=== PATIENT | female | born 1975 | race Hispanic/Latino ===

== ENCOUNTER 2019-04-15 11:26 | Observation (INO) | payer MEDICAID, SELFPAY ==
--- OUTSIDE RECORDS SUMMARY | 2019-04-15 11:28 | XMS REPORT ---
:1975 Author Organization [employer] Care Team Providers Name Role Phone Alex Cunningham Provider Role Unavailable Allergies, Adverse Reactions, Alerts Substance Reaction Event Type Toradol rash/swelling Drug Allergy Tramadol HCl rash/swelling Drug Allergy Cipro rash/swelling Drug Allergy Bactrim rash/swelling Drug Allergy Problems Problem Type Condition Code Onset Dates Condition Status Assessment Family history of diabetes mellitus Z83.3 Active Assessment Irritable bowel syndrome, K58.9 Active unspecified type Assessment Essential (primary) hypertension I10 Active Assessment Fibromyalgia M79.7 Active Assessment assisted prescription Z79.899 Active benzodiazepine use Problem Essential (primary) hypertension I10 Active Problem Depression with anxiety F41.8 Active Problem Fibromyalgia M79.7 Active Assessment Depression with anxiety F41.8 Active Problem Cocaine abuse F14.10 Active Problem Irritable bowel syndrome, K58.9 Active unspecified type Medications Medication Code Code Instructions Start End Status Dosage System Date Date Acetaminophen-C [facility] 34532585149 300-30 MG Oral Active (Schedule odeine #3 III Drug) Gabapentin [facility] 38643771887 800 MG Oral tid Active as directed Alprazolam ND [id number] 2 MG Oral Twice Active (Schedule a day IV Drug) Hyoscyamine [facility] [id number] 0.125 MG Active not defined Sulfate Sublingual Duloxetine HCl [facility] 33209054691 30 MG Oral Active not defined Results No Known Results Summary Purpose [employer] Submission
--- OUTSIDE RECORDS SUMMARY | 2019-04-15 11:30 | XMS REPORT | Summary of Care ---
:1975 Author Organization [facility] Address [address] [place] [address] Care Team Providers Name Role Phone Jed Bradley Primary Care Provider Reason for Referral (Routine) Status Reason Specialty Diagnoses / Referred By Referred To Procedures Contact Contact New Request Diagnoses Numbness and tingling of left upper extremity Vasospasm of cerebral artery Becky Bonner MD Lillian, Erin Procedures Discharge Follow-up: PCP JED BRADLEY; 3-5 Days [id number] [place] [address] [place], [place] Phone: [phone] Phone: Radiology Services (Routine) Status Reason Specialty Diagnoses / Referred By Referred To Procedures Contact Contact New Request Diagnostic Diagnoses Numbness and tingling of left upper extremity Sun, Rolandoing, Radiology Procedures IR ANGIOGRAM CEREBRAL PARVEEN ARTERIAL [address] [place] [address] MRI/CAT Scan (STAT) Status Reason Specialty Diagnoses / Referred By Referred To Procedures Contact Contact New Request Diagnostic Diagnoses Numbness and tingling of left lower extremity Ramos Mathews Radiology Procedures MR BRAIN WO CONTRAST S, DO [address] [place] [address] MRI/CAT Scan (STAT) Status Reason Specialty Diagnoses / Referred By Referred To Procedures Contact Contact New Request Diagnostic Diagnoses Numbness and tingling of left lower extremity Ramos Mathews Radiology Procedures MR BRAIN WO CONTRAST S, DO [address] [place] [address] MRI/CAT Scan (Routine) Status Reason Specialty Diagnoses / Referred By Referred To Procedures Contact Contact New Request Diagnostic Diagnoses Stroke-like symptoms Feng Solorzano, Radiology Procedures CT ANGIOGRAM HEAD DO [address] [place] [address]. RT [address] [place] [address] MRI/CAT Scan (STAT) Status Reason Specialty Diagnoses / Referred By Referred To Procedures Contact Contact New Request Diagnostic Diagnoses Stroke-like symptoms Feng Solorzano, Radiology Procedures CT ANGIOGRAM NECK DO [address] [place] [address]. RT [address] [place] [address] MRI/CAT Scan (STAT) Status Reason Specialty Diagnoses / Referred By Referred To Procedures Contact Contact New Request Diagnostic Diagnoses Stroke-like symptoms Feng Solorzano, Radiology Procedures CT HEAD WO CONTRAST DO [address] [place] [address]. RT [address] [place] [address] MRI/CAT Scan (Routine) Status Reason Specialty Diagnoses / Referred By Referred To Procedures Contact Contact New Request Diagnostic Diagnoses Stroke-like symptoms Feng Solorzano, Radiology Procedures CT ANGIOGRAM HEAD DO [address] [place] [address]. RT [address] [place] [address] MRI/CAT Scan (STAT) Status Reason Specialty Diagnoses / Referred By Referred To Procedures Contact Contact New Request Diagnostic Diagnoses Stroke-like symptoms Feng Solorzano, Radiology Procedures CT ANGIOGRAM NECK DO [address] [place] [address]. RT [address] [place] [address] MRI/CAT Scan (STAT) Status Reason Specialty Diagnoses / Referred By Referred To Procedures Contact Contact New Request Diagnostic Diagnoses Stroke-like symptoms Feng Solorzano, Radiology Procedures CT HEAD WO CONTRAST DO [address] [place] [address]. RT [address] [place] [address] Reason for Visit Reason Comments STROKE Auth/Cert Status Reason Specialty Diagnoses / Referred By Referred To Procedures Contact Contact [facility] [address] [place] [address] [place] [address] Encounter Details Date Type Department Care Team Description 09/06/2018 - Hospital Encounter Neurology/Neurologic Feng Solorzano, DO [address] [place] [address]. RT [address] [place], [place] [address]165 Stroke 09/08/2018 al Surgery (LUDWIG 11B) Ramos Mathews, [address] [address] [address] [place] [address] Allergies Active Allergy Reactions Severity Noted Date Comments Ciprofloxacin Anaphylaxis 12/09/2015 Sulfa (Sulfonamide Antibiotics) Anaphylaxis 12/09/2015 Ketorolac Tromethamine Anaphylaxis 11/21/2017 Tramadol Anaphylaxis 12/09/2015 documented as of this encounter (statuses as of 09/08/2018) Medications Medication Sig Dispensed Refills Start Date End Date Status simethicone 80 mg Take 1 tablet 120 tablet 0 05/28/2018 Active chewable by mouth after tabletIndications: meals and at Constipation, bedtime. unspecified constipation type hyoscyamine sulfate Place 1 tablet 90 tablet 0 05/28/2018 Active 0.125 mg sublingual under the tabletIndications: tongue before Sphincter of Oddi meals. dysfunction docusate 100 mg Take 1 capsule 0 05/29/2018 Active capsule by mouth daily. Polyethylene Glycol Take 1 Packet 0 05/28/2018 Active 3350 17 gram powder by mouth 2 (two) times daily. sennosides 8.6 mg Take 1 tablet 0 05/29/2018 Active tablet by mouth daily. pantoprazole 40 mg Take 1 tablet 60 tablet 2 05/28/2018 Active EC by mouth 2 tabletIndications: (two) times Abdominal pain, daily. unspecified abdominal location ondansetron Take 1 tablet 24 tablet 0 05/28/2018 Active (ZOFRAN) 8 mg by mouth every tabletIndications: 8 (eight) hours Abdominal pain, as needed for unspecified Nausea and abdominal location Vomiting (N/V). ranitidine (ZANTAC) Take 1 tablet 30 tablet 1 07/12/2018 Active 150 mg by mouth 2 tabletIndications: (two) times Generalized daily. Follow abdominal pain up with your MD for further evaluation and treatment. ondansetron (ZOFRAN Take 1 tablet 6 tablet 0 07/12/2018 Active ODT) 4 mg by mouth every disintegrating 8 (eight) hours tabletIndications: as needed for Generalized Nausea and abdominal pain Vomiting (N/V). acetaminophen 160 Take 20.25 mL 120 mL 0 07/12/2018 Active mg/5 mL by mouth every liquidIndications: 4 (four) hours Generalized as needed for abdominal pain Pain (scale 4-6). clonazePAM 1 mg Take 1 mg by 0 Active tablet mouth 2 (two) times daily. metFORMIN 500 mg Take 500 mg by 0 Active tablet mouth 2 (two) times daily with meals. linaCLOtide Take by mouth. 0 Active (LINZESS) 145 mcg capsule acetaminophen-codei Take 1 tablet 12 tablet 0 08/04/2018 Active ne (TYLENOL-CODEINE by mouth every #3) 300-30 mg 4 (four) hours tabletIndications: as needed for Chronic Pain (scale pancreatitis, 7-10). unspecified pancreatitis type, Bilateral flank pain, Mild dehydration, Elevated liver function tests dicyclomine Take 1 capsule 30 capsule 0 08/20/2018 Active (BENTYL) 10 mg by mouth every capsuleIndications: 6 (six) hours Generalized as needed for abdominal pain Abdominal pain. pregabalin (LYRICA) Take 100 mg by 0 Active 100 mg capsule mouth 2 (two) times daily. tamsulosin 0.4 mg Take 0.4 mg by 0 Active 24 hr capsule mouth daily. aspirin 81 mg Take 1 tablet 30 tablet 6 09/09/2018 Active chewable by mouth daily. tabletIndications: Numbness and tingling of left upper extremity, Vasospasm of cerebral artery atorvastatin 20 mg Take 1 tablet 30 tablet 6 09/08/2018 Active tabletIndications: by mouth at Numbness and bedtime. tingling of left upper extremity, Vasospasm of cerebral artery gabapentin 600 mg Take 300 mg by 0 Discontinued tablet mouth 3 (three) 9 times daily. lisinopril 10 mg Take 10 mg by 0 Discontinued tablet mouth 2 (two) 9 times daily. 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 Constipation 05/28/2018 Transaminitis 05/28/2018 Abdominal pain 05/25/2018 Intractable abdominal pain 05/24/2018 Acute pancreatitis 05/21/2018 Hypertensive disorder 05/03/2018 Cocaine abuse 05/03/2018 Alcoholism 05/03/2018 Migraine 05/03/2018 Kidney stone 05/03/2018 Acute pyelonephritis 05/29/2017 Fibromyalgia 06/02/2016 Nephrolithiasis 06/02/2016 Depression Chronic migraine Chronic back pain Anxiety documented as of this encounter (statuses as of 09/08/2018) Social History Tobacco Use Types Packs/Day Years Used Date Current Every Day Smoker 5 Smokeless Tobacco: Never Used Tobacco Cessation: Ready to Quit: No; Counseling Given: Yes Comments: only smoked social Alcohol Use Drinks/Week oz/Week Comments No Sex Assigned at Date Recorded Not on file Job Start Date Occupation Industry Not on file Not on file Not on file Travel History Travel Start Travel End No recent travel history available. documented as of this encounter Last Filed Vital Signs Vital Sign Reading Time Taken Comments Blood Pressure 98/57 09/08/2018 8:00 AM CDT Pulse 78 09/08/2018 8:00 AM CDT Temperature 36.6 C (97.8 F) 09/08/2018 8:00 AM CDT Respiratory Rate 16 09/08/2018 8:00 AM CDT Oxygen Saturation 98% 09/08/2018 8:00 AM CDT Inhaled Oxygen Concentration - - Weight 73.7 kg (162 lb 7.7 oz) 09/07/2018 9:18 AM CDT Height 154.9 cm (5' 0.98") 09/07/2018 9:18 AM CDT Body Mass Index 30.72 09/07/2018 9:18 AM CDT documented in this encounter Discharge Instructions AttachmentsThe following attachments cannot be sent through Care Everywhere.Aspirin, ASA chewable tablets (Kyrgyz)Atorvastatin tablets (Kyrgyz) documented in this encounter Progress Notes Flavio Rosen MD - 09/07/2018 6:54 PM CDTNeurosurgery Update Note 09/07/18 NeuroIR angiogram reviewed, and there was no evidence of right MCA cerebral aneurysm. LP results negative for xanthochromia. -No plans for neurosurgical intervention -Rest of care per primary team Flavio Rosen MD Neurosurgery, PGY-2 For inquiries please page [phone] olf, CONSTANTINE Rizo - 09/07/2018 12:54 PM CDTCare Management Social Functional Assessment Patient Name: Charmaine Sanches Age: [age] year old Sex: female Patient's Previous Admission Date at [facility]: 05/25/2018 Current diagnosis and co-morbidities: STROKE VS Social Functional Assessment: Primary language spoken/preferred: Kyrgyz Mental Status: Alert & Oriented to Person,Place & Time Information given by: Self Patient's support system: Spouse Name and number of support system: Jorge Murdock [phone] Primary Personal Care Attendant: Self MPOA: No Living Arrangement: Home Address of living arrangement : [address] [place] [id number] Persons living in home: Self;Spouse;Child Barriers to returning home: None Baseline functional status- ambulation: Independent Functional status-baseline personal care: Independent Baseline functional status- driving: Dependent Baseline functional status- grocery shopping: Requires minimal to moderate assistance Functional status-baseline housekeeping: Requires minimal to moderate assistance Functional status-baseline meal prep: Requires minimal to moderate assistance Current functional status same as prior: No Current functional status- ambulation: Requires minimal to moderate assistance Current functional status- personal care: Independent Current functional status- driving: Dependent Current functional status- grocery shopping: Dependent Current functional status-house keeping: Dependent Current functional status- meal preparation: Dependent Do you have a PCP?: Yes Name of PCP: Dr [facility] Agency: No Provider Services: No DME Company: No Equipment: None Hemodialysis: No Community resources utilized: None Funding Resources: Medicaid HMO Prescription coverage plan: Medicaid unlimited slots Pharmacy where meds are filled: Other Other pharmacy: [facility] [place] Anticipated services prior to disharge: Consult;Continue Medical Eval;Orthotic Equipment-Foster J;MRI/CT/US;Reassess prior to discharge;PT/OT/ST Expected mode of discharge transportation: Same as support system Additional info required for discharge planning: Pending P/T O/T recommendation Recommended discharge plan: Home;DME Referral SFA Complete: Social Functional Assessment complete: Yes Alcohol Use Screening (AUDIT-C) How often do you have a drink containing alcohol?: Never SCORE: 0 Role of Care Management explained. Pt states she will have support of dtr upon home d/c and family. RACHEL Perez Litigation Services Manager/Care Management Office [phone] Dalton Ceron MD - 09/07/2018 10:18 AM CDT [facility] PROGRESS NOTE DATE OF SERVICE: 09/07/2018 10:19 Day of Hospitalization: 1 CHIEF COMPLAINT: Left sided numbness, weakness, blurry vision and slurred speech. Code status: not addressed: presumptive full. 24-HOUR EVENTS: Admitted to [facility], CTA done. BP 90s/60s overnight, holding BP meds. LP CSF fluid analysis - unremarkable (negative for xanthochromia or infection ) SUBJECTIVE: Says that she still feels weak on her left arm and has numbness on the left side of her face. STROKE DOCUMENTATION NIH STROKE SCALE NIH STROKE SCALE LOC: 0 Alert: Keenly Responsive LOC QUESTIONS: 0 Answers Both Questions Correctly LOC COMMANDS: 0 Performs Both Tasks Correctly BEST GAZE: 0 Normal VISUAL: 0 No Visual Loss FACIAL PALSY: 0 Normal MOTOR ARM-LEFT: 1 Drift MOTOR ARM-RIGHT: 0 No Drift MOTOR LEG-LEFT: 1 Drift MOTOR LEG-RIGHT: 0 No Drift LIMB ATAXIA: 0 Absent SENSORY: 1 Bzt-ot-[id number] Sensory Loss BEST LANGUAGE: 0 No Aphasia DYSARTHRIA: 0 Normal EXTINCTION AND INATTENTION (FORMERLY NEGLECT): 0 No Abnormalty STROKE SCALE INTERVAL: Baseline STROKE SCALE TOTAL SCORE: 3 HOSPITAL MEDICATIONS Current Facility-Administered Medications Medication Dose Route Frequency Last Rate Last Dose acetaminophen (TYLENOL) tablet 650 mg 650 mg Oral Q6HPRN NaCl 0.9% (NS) IV infusion 1,000 mL 1,000 mL IV Infusion CONTINUOUS Sliding Scale Insulin - Aspart (NOVOLOG) + Fsbg Testing Subcutaneous TID MEALS+HS Stopped at09/07/18 0748 aspirin chewable tablet 81 mg 81 mg Oral DAILY 81 mg at 09/07/18 0814 atorvastatin (LIPITOR) tablet 20 mg 20 mg Oral QHS sqguthweac-kzbsfanokekzk-pkng (ESGIC) 50-325-40 mg tablet 1 tablet 1 tablet Oral Q6HPRN 1 tablet at 09/06/18 2334 clonazePAM (KLONOPIN) tablet 1 mg 1 mg Oral BID 1 mg at 09/07/18 0814 heparin injection 5,000 Units 5,000 Units Subcutaneous Q12H Stopped at 0816 ondansetron (ZOFRAN-ODT) disintegrating tablet 4 mg 4 mg Oral Q8HPRN pantoprazole (PROTONIX) EC tablet 40 mg 40 mg Oral BID 40 mg at 09/07/18 0814 pregabalin (LYRICA) capsule 100 mg 100 mg Oral BID 100 mg at 09/07/18 0814 PHYSICAL EXAM BP: (93-129)/(56-97) Temp: [36.5 C (97.7 F)-36.7 C (98.1 F)] Temp source: Axillary (09/07 0400) Pulse: [48-66] Resp: [9-19] SpO2: [90 %-100 %] Height: [154.9 cm (5' 0.98")-154.9 cm (5' 1")] Weight: [70.3 kg (155 lb)-73.7 kg (162 lb 7.7 oz)] BMI (calculated): [0-30.72] Vitals: 09/07/18 0700 09/07/18 0800 09/07/18 0900 09/07/18 0918 BP: 96/69 94/60 116/76 116/76 Pulse: 52 51 50 Resp: 14 14 16 Temp: TempSrc: SpO2: 97% 95% 98% Weight: 73.7 kg (162 lb 7.7 oz) Height: 1.549 m (5' 0.98") Intake/Output Summary (Last 24 hours) at 09/07/2018 1019 Last data filed at 09/06/2018 2000 Gross per 24 hour Intake 0 ml Output Net 0 ml Awake Patients General: Alert and oriented x 4 (time, person, place and situation); no apparent distress. Mental Status: Consciousness, attention, concentration: normal, Stays focused and on task while being questioned. Speech/ Language: intact to comprehension, fluency, repetition and naming. Fund of knowledge: is congruent with level of education. Remote and recent memory: normal, can recall recent and distant memories Cranial Nerves: I. Not tested. II. PERRL. FOV full to confrontation. Discs visualized, no papilledema. III. IV., . Extraocular movements intact without nystagmus. V. Normal sensation in V1-3 distributions. VII. No facial droop noted. VIII. Hearing intact. IX., X. Palatal elevation and gag response present symmetrically. XI. Normal Strength of sternocleidomastoid and trapezius muscles bilaterally. XII. Tongue in midline. Motor: Tone: normal Bulk: normal STRENGTH Right Left Deltoid 5- 4 Biceps 5- 4 Triceps 5 - 4 Wrist extensors 5- 4 Interossei 5- 4 Hip flexors 5 5 Knee flexors (hamstring) 5 5 Knee extensors (quadriceps) 5 5 Ankle dorsiflexors 5 5 Ankle plantar flexors 5 5 DTR's: Right Left Bicep 2+ 2+ Triceps 2+ 2+ Brachioradialis 2+ 2+ Patella 2+ 2+ Achilles 2+ 2+ Pathologic reflexes and signs: Frontal releasing signs: absent Hopson: absent Babinski: absent Jaw Jerk: not tested Cerebellar: Nystagmus: neg, FTN: mild dysmetria on her left side, HTS:nl, Tremors: neg Sensory: Numbness on left side of her face and arm. Proprioception intact. Gait: deferred HEENT: pupils equal, round, reactive to light; extraocular movements intact; oropharynx clear; moistmucous membranes Lungs: clear to auscultation bilaterally Cardio: S1, S2 normal Extremities:no cyanosis,clubbing or edema Neck:supple,no carotid bruit,no JVD Abdomen: soft; non-tender; non-distended; normoactive bowel sounds heard LABS Recent Results (from the past 24 hour(s)) COMP. METABOLIC PANEL ([id number]) Collection Time: 09/06/18 4:38 PM Result Value Ref Range NA 145 135 - 145 mmol/L K 3.9 3.5 - 5.0 mmol/L CL 110 (H) 98 - 108 mmol/L CO2 TOTAL 27 23 - 31 mmol/L AGAP 8 2 - 16 BUN 10 7 - 23 mg/dL GLUCOSE 92 70 - 110 mg/dL CREATININE 0.69 0.50 - 1.04 mg/dL TOTAL BILI 0.6 0.1 - 1.1 mg/dL CALCIUM 9.0 8.6 - 10.6 mg/dL T PROTEIN 7.5 6.3 - 8.2 g/dL ALBUMIN 4.2 3.5 - 5.0 g/dL ALK PHOS 139 (H) 34 - 122 U/L ALT(SGPT) 30 9 - 51 U/L AST(SGOT) 24 13 - 40 U/L eGFR Calculation (Non-) 92.4 mL/min/1.73m2 eGFR Calculation () 112.0 mL/min/1.73m2 TROPONIN I Collection Time: 09/06/18 4:38 PM Result Value Ref Range TROPONIN I 0.002 <=0.034 ng/mL LIPID PANEL ([id number])(TOTAL CHOLESTEROL, TRIGLYCERIDES, HDL) Collection Time: 09/06/18 4:38 PM Result Value Ref Range CHOL 153 120 - 200 mg/dL HDL 32 (L) >50 mg/dL HDLC RATIO 4.8 (H) <=4.5 TRIG 223 (H) 30 - 170 mg/dL LDL CHOL 76 <=160 mg/dL VLDL 45 5 - 60 mg/dL GLYCOSYLATED HEMOGLOBIN (A1C) Collection Time: 09/06/18 4:38 PM Result Value Ref Range HGB A1C 5.5 4.0 - 6.0 % NGSP CBC WITH DIFFERENTIAL Collection Time: 09/06/18 4:38 PM Result Value Ref Range WBC 9.94 4.30 - 11.10 10*3/L RBC 3.89 (L) 3.93 - 5.25 10*6/L HGB 11.4 (L) 11.6 - 15.0 g/dL HCT 35.1 (L) 35.7 - 45.2 % MCV 90.2 80.6 - 95.5 fL MCH 29.3 25.9 - 32.8 pg MCHC 32.5 31.6 - 35.1 g/dL RDW-SD 42.7 39.0 - 49.9 fL RDW-CV 13.0 12.0 - 15.5 % PLT 270 166 - 358 10*3/L MPV 11.1 9.5 - 12.9 fL NRBC/100 WBC 0.0 0.0 - 10.0 /100 WBCs NRBC x10^3 <0.01 10*3/L GRAN MAT (NEUT) % 64.8 % IMM GRAN % 0.30 % LYMPH % 24.3 % MONO % 6.8 % EOS % 3.3 % BASO % 0.5 % GRAN MAT x10^3(ANC) 6.43 1.88 - 7.09 10*3/uL IMM GRAN x10^3 0.03 0.00 - 0.06 10*3/uL LYMPH x10^3 2.42 1.32 - 3.29 10*3/uL MONO x10^3 0.68 0.33 - 0.92 10*3/uL EOS x10^3 0.33 0.03 - 0.39 10*3/uL BASO x10^3 0.05 0.01 - 0.07 10*3/uL ADC / LCC - DRUG SCREEN TRIAGE Collection Time: 09/06/18 4:47 PM Result Value Ref Range BENZO U Negative Negative SRUTHI U Negative Negative AMPHET Negative Negative THC Negative Negative METHADONE Negative Negative Meth U Negative Negative OPIATES Negative Negative Cocaine Metabolite Presumptive Positive (A) Negative PROPOXY Negative Negative Tric U Negative Negative PCP Negative Negative OXYCOD Negative Negative URINALYSIS Collection Time: 09/06/18 4:48 PM Result Value Ref Range APPEARANCE Clear Clear COLOR Colorless (A) Yellow PH 6.0 4.8 - 8.0 SP GRAVITY <=1.005 1.003 - 1.030 GLU U QUAL Negative Negative BLOOD Trace (A) Negative KETONES Negative Negative PROTEIN Negative Negative UROBILIN 0.2 mg/dL 0-1.0 mg/dL BILIRUBIN Negative Negative NITRITE Negative Negative LEUK PAKO Negative Negative RBC/HPF 1 0 - 3 HPF WBC/HPF 0 0 - 5 HPF BACTERIA Negative Negative SQ EPITH 1 HPF THYROID STIMULATING HORMONE Collection Time: 09/07/18 12:22 AM Result Value Ref Range TSH 4.50 0.45 - 4.70 mIU/L PROTHROMBIN TIME / INR Collection Time: 09/07/18 1:54 AM Result Value Ref Range PROTIME PATIENT 11.2 10.1 - 12.6 Seconds INR 1.0 aPTT Collection Time: 09/07/18 1:54 AM Result Value Ref Range APTT Patient 29 26 - 36 Seconds CEREBROSPINAL FLUID GLUCOSE Collection Time: 09/07/18 3:30 AM Result Value Ref Range GLU CSF 47 (L) 50 - 80 mg/dL UNSPUN BODY FLUID COLOR Colorless UNSPUN BODY FLUID CLARITY Clear SPUN BODY FLUID COLOR Colorless SPUN BODY FLUID CLARITY Clear Sediment CEREBROSPINAL FLUID PROTEIN Collection Time: 09/07/18 3:30 AM Result Value Ref Range T. PRO CSF 39.0 15.0 - 45.0 mg/dL UNSPUN BODY FLUID COLOR Colorless UNSPUN BODY FLUID CLARITY Clear SPUN BODY FLUID COLOR Colorless SPUN BODY FLUID CLARITY Clear Sediment MENINGITIS/ENCEPHALITIS PANEL BY PCR Collection Time: 09/07/18 3:30 AM Result Value Ref Range Escherichia coli K1 Negative Negative, Indeterminate, See Comment Haemophilus influenzae Negative Negative, Indeterminate, See Comment Listeria monocytogenes Negative Negative, Indeterminate, See Comment Neisseria meningitidis (encapsulated) Negative Negative, Indeterminate, See Comment Streptococcus agalactiae Negative Negative, Indeterminate, See Comment Streptococcus pneumoniae Negative Negative, Indeterminate, See Comment Cytomegalovirus Negative Negative, Indeterminate, See Comment Enterovirus Negative Negative, Indeterminate, See Comment Herpes simplex virus 1 Negative Negative, Indeterminate, See Comment Herpes simplex virus 2 Negative Negative, Indeterminate, See Comment Human herpesvirus 6 Negative Negative, Indeterminate, See Comment Human parechovirus Negative Negative, Indeterminate, See Comment Varicella zoster virus Negative Negative, Indeterminate, See Comment Cryptococcus neoformans/gattii Negative Negative, Indeterminate, See Comment BODY FLUID DIRECT COUNT Collection Time: 09/07/18 3:30 AM Result Value Ref Range BF COLOR Clear BF WBC Count 1 0 - 5 /L BF RBC Count 1 /L CSF CULTURE Collection Time: 09/07/18 3:30 AM Result Value Ref Range Gram stain No Organisms seen Gram stain Occasional (Rare) PMNs or Mononuclear cells observed BODY FLUID MANUAL DIFF Collection Time: 09/07/18 3:30 AM Result Value Ref Range BF LYMPHS 26 (L) 28 - 96 % MACROPHAGE 10 (L) 16 - 56 % #CELS CNTD 36 FASTING LIPID PANEL ([id number])(TOTAL CHOLESTEROL, TRIGLYCERIDES, HDL) Collection Time: 09/07/18 3:35 AM Result Value Ref Range CHOL 149 120 - 200 mg/dL HDL 26 (L) >50 mg/dL HDLC RATIO 5.7 (H) <=4.5 TRIG 186 (H) 30 - 170 mg/dL LDL CHOL 86 <=160 mg/dL VLDL 37 5 - 60 mg/dL POCT GLUCOSE (AUTOMATED) Collection Time: 09/07/18 7:39 AM Result Value Ref Range POCT GLU 95 70 - 110 mg/dL RADIOLOGY No final results containing an impression from the past 48 hours were found. ASSESSMENT AND PLAN Charmaine Sanches is a 43 year old female with PMHx of the following stroke risk factors: HTN, DM, cocaine use, who presented with Left sided weakness, numbness and blurry vision, LSN: 09/06 at 1330, NIHSS 3. 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 1. Neuro - Left side facial and arm numbness - Left arm weakness - Slurred speech (resolved) - Blurred vision (resolved) Imaging: EEG: CSF Analysis: Plan: Neurochecks Q1H Telemetry SBP goal: 120-140 Hold Lisinopril for now. Check CBC, BMP, Pt, PTT, cardiac enzymes x 1, EKG Avoid hyperthermia, pain and constipation Aspirin 325 mg now and Aspirin 81 daily from tomorrow Statin 20mg daily if LDL>70, will adjust according to fasting lipid panel Fall precautions Consult PT/OT/ Speech pathology/Primary swallowing screen MRI brain pending IR to do cerebral angiogram today 2. Cardiac - HTN - Cocaine use (positive UDS) Troponin: 0.002 Plan: SBP goal: 120-140 Started on IV fluids, monitor BP TTE pending 3. Pulmonary Reports SOB when doing neurologic exam this morning. Plan: Continue to monitor TTE pending 4. GI No active problems. - NPO until IR angiogram 5. Renal No active problems - Start IV fluids 150cc/hr to prevent contrast induced nephropathy. 6. ID No active problems. Temp (24hrs), Av.6 C (97.9 F), Min:36.5 C (97.7 F), Max:36.7 C ( 98.1 F) 7. Endo DM (controled) - GI Prophylaxis: pantoprazole - DVT Prophylaxis: heparin Discussed with Dr. Mathews, Neurology Faculty HOSPITAL COURSE Patient with relevant history of HTN and cocaine use, transferred yesterday night from [facility] for sudden onset left arm weakness and numbness, headache, blurry vision and slurred speech that started at 1:30 pm, in addition to a possible right MCA aneurysm detected on CTA. Cocaine positive in UDS. On admission, NIHSS 3. No t-pa was given (outside of the window). Headache, dysarthria and blurry vision have resolved but she still complains of numbness and weakness on her left arm. IR was consulted and DSAwas unremarkable (no aneurysm identified). MRI brain unremarkable. No complications post-procedure, vitals stable. Possible ethiology: vasospasm from cocaine use. Stable for TTF, pending PT/OT evaluation. Dalton Rabago M.D Neurology (PGY-2) Doctor's Number: [id number] Pager: [phone] Associated attestation - Ramos Mathews DO - 09/08/2018 10:10 AM CDTI personally examined the patient on 09/07/[address] Rosas's resident note with the following addition(s): - Angio negative for aneurysm. All examinations to date negative for CVA or hemorrhage. - Neuro exam stable; overall clinically stable - Counseled on cocaine cessation and vasospasm risk - Stable for transfer to the floor I actively participated in the decision-making process. Please see the resident 's note for additional details. Kat Marroquin OT - 09/07/2018 9:53 AM CDT09/07/2018 0953 OCCUPATIONAL THERAPY NOTE: Consult received per stroke protocol, however, patient currently away for MRI. Will f/u later, as time permits. PATTI Lima, OTD, C/NDT Pager [phone] Saurav Peña PT - 09/07/2018 9:53 AM CDT09/07/2018 Physical therapy note: Physical Therapy consult received and chart reviewed however patient is currently away for MRI. Will follow up at a later time as schedule permits. Thank you. Saurav Bui PT, DPT Pager Number: [phone] Ramos Quinones DO - 09/06/2018 11:35 PM CDT Neurocritical Care Attending Note I have been directly involved in the care of this patient including decision- making with house staffand nursing teams at the bedside. Charmaine Sanches is critically ill, 43 year old female with a PMH of Past Medical History: Diagnosis Date Anxiety Chronic back pain Chronic migraine Cocaine abuse Depression Elevated liver enzymes Fibromyalgia Kidney stones She was transferred from [facility] with the following HPI (taken by Dr. Contreras): " Charmaine Sanches is a 43 year old left handed female with PMH of HTN, DM, anxiety, fibromyalgia who was transferred to the N[facility] for [place] ED for left sided weakness and numbness and cerebral aneurysm. Patient is at her usual health status until 1:30 pm today she started having sudden onset slurred speech, left sided weakness and numbness. She went to [facility] ED, her slurred speech resolved in 2 hours, but she still has consistent right sided numbness and weakness. Patient also has headache that was started today. She describes her headache as located behind her eyes, the top of her headache, radiating to the back of her head and neck, pressure like pain, associated with blurry vision, about 8-9/10. She had migraine several years ago, but this headache is different from her previous migraine. She denies any fever/chills, worsening nausea (she has chronic nausea), aphasia. Workup in the [facility] ED: WBC 9.94, Hb 11.4, Na 145, K 3.9, Cr 0.69, A1c 5.5, LDL 76, UDS positive for cocaine. CT head unremarkable, CTA head/neck showed 3.5 mm size aneurysm suspected at the bifurcation of right middle cerebral artery." No signs of bleeding on imaging. Active problem list: 1. R MCA aneurysm 2. NAPIER 3. LUE and LLE weakness/ dysarthria 4. HTN Plan: 1) LP to rule out SAH 2) Keep SBP < 140 3) Consult neurosurgery 4) MRI 5) Neurochecks 6) NPO for now until need for possible intervention clarified 7) Medical Reception on cocaine cessation 8) SCDs/ GI prophylaxis. I have spent a total of 36 minutes of critical care time at the bedside. Ramos Mathews Neurocritical Care Unit attending documented in this encounter Plan of Treatment Name Type Priority Associated Diagnoses Date/Time CSF/WELDING INSPECTOR SHUNT CULTURE LAB [facility] 09/07/2018 3:30 AM CDT CSF CULTURE LAB [facility] 09/07/2018 3:30 AM CDT IR ANGIOGRAM CEREBRAL IMAGING Routine Numbness and tingling of 09/07/2018 2:20 PM left upper extremity CDT Name Type Priority Associated Diagnoses Order Schedule POCT CREATININE LAB Routine Numbness and tingling of ONCE for 1 Occurrences left upper extremity starting 09/06/2018 until 09/06/2018 CSF/WELDING INSPECTOR SHUNT CULTURE LAB [facility] ONCE for 1 Occurrences starting 09/07/2018 until 09/07/2018 Health Maintenance Due Date Last Done Comments PNEUMOCOCCAL 0-64 YEARS COMBINED 1980 SERIES (1 of 1 - PPSV23) DTaP,Tdap,and Td Vaccines (1 - Tdap) 1993 PAP SMEAR 05/04/2013 05/04/2010, 10/01/2007, 11/25/2003 MAMMOGRAM 2014 INFLUENZA VACCINE 10/14/2018 documented as of this encounter Implants Implanted Type Area Spanish Speaking Nanny Device Shelf Model / Identifier Expiration Date Serial / Lot [employer] Supervisor Vascular Closure Device Suture Right: Cardinal 08/12/2020 [id number] / Implanted: Qty: 1 on 09/07/2018 by Julius Espinosa MD at [facility] [id number] / [id number] documented as of this encounter Procedures Procedure Name Priority Date/Time Associated Comments Diagnosis POCT GLUCOSE Routine 09/08/2018 8:41 Results for this (AUTOMATED) AM CDT procedure are in the results section. CBC WITH DIFFERENTIAL Routine 09/08/2018 5:06 Results for this AM CDT procedure are in the results section. CBC WITH DIFF Routine 09/08/2018 5:06 Results for this AM CDT procedure are in the results section. BASIC METABOLIC PANEL Routine 09/08/2018 5:06 Results for this (NA, K, CL, CO2, AM CDT procedure are in GLUCOSE, BUN, the results CREATININE, CA) section. POCT GLUCOSE Routine 09/07/2018 8:35 Results for this (AUTOMATED) PM CDT procedure are in the results section. MR BRAIN WO CONTRAST STAT 09/07/2018 10:30 Numbness and Results for this AM CDT tingling of left procedure are in lower extremity the results section. ECHO ROUTINE W/DOPPLER Routine 09/07/2018 8:42 Stroke-like COLOR AM CDT symptoms POCT GLUCOSE Routine 09/07/2018 7:39 Results for this (AUTOMATED) AM CDT procedure are in the results section. MRSA / MSSA SCREEN BY [facility] 09/07/2018 3:35 Results for this PCR, NARES AM CDT procedure are in the results section. LIPID PANEL [facility] 09/07/2018 3:35 Results for this (00851)(TOTAL AM CDT procedure are in CHOLESTEROL, the results TRIGLYCERIDES, HDL) section. MENINGITIS/ENCEPHALITIS [facility] 09/07/2018 3:30 Results for this PANEL BY PCR AM CDT procedure are in the results section. EXTRA TUBE CSF [facility] 09/07/2018 3:30 AM CDT BODY FLUID DIRECT COUNT [facility] 09/07/2018 3:30 Results for this AM CDT procedure are in the results section. BODY FLUID MANUAL DIFF [facility] 09/07/2018 3:30 Results for this AM CDT procedure are in the results section. BODY FLUID CELL COUNT [facility] 09/07/2018 3:30 Results for this AM CDT procedure are in the results section. CEREBROSPINAL FLUID [facility] 09/07/2018 3:30 Results for this GLUCOSE AM CDT procedure are in the results section. CEREBROSPINAL FLUID [facility] 09/07/2018 3:30 Results for this PROTEIN AM CDT procedure are in the results section. ACTIVATED PARTIAL STAT 09/07/2018 1:54 Results for this THRMPLAS DICK AM CDT procedure are in the results section. PROTHROMBIN TIME / INR STAT 09/07/2018 1:54 Results for this AM CDT procedure are in the results section. THYROID STIMULATING [facility] 09/07/2018 12:22 Results for this HORMONE AM CDT procedure are in the results section. URINALYSIS STAT 09/06/2018 4:48 Stroke-like Results for this PM CDT symptoms procedure are in the results section. ADC / LCC - DRUG SCREEN STAT 09/06/2018 4:47 Stroke-like Results for this TRIAGE PM CDT symptoms procedure are in the results section. CT ANGIOGRAM HEAD Routine 09/06/2018 4:38 Stroke-like Results for this PM CDT symptoms procedure are in the results section. CBC WITH DIFFERENTIAL STAT 09/06/2018 4:38 Stroke-like Results for this PM CDT symptoms procedure are in the results section. GLYCOSYLATED HEMOGLOBIN STAT 09/06/2018 4:38 Stroke-like Results for this (A1C) PM CDT symptoms procedure are in the results section. CBC WITH DIFF STAT 09/06/2018 4:38 Stroke-like Results for this PM CDT symptoms procedure are in the results section. LIPID PANEL STAT 09/06/2018 4:38 Stroke-like Results for this (22959)(TOTAL PM CDT symptoms procedure are in CHOLESTEROL, the results TRIGLYCERIDES, HDL) section. COMP. METABOLIC PANEL STAT 09/06/2018 4:38 Stroke-like Results for this (32490) PM CDT symptoms procedure are in the results section. TROPONIN I STAT 09/06/2018 4:38 Stroke-like Results for this PM CDT symptoms procedure are in the results section. CT ANGIOGRAM NECK STAT 09/06/2018 4:37 Stroke-like Results for this PM CDT symptoms procedure are in the results section. CT HEAD WO CONTRAST STAT 09/06/2018 4:28 Stroke-like Results for this PM CDT symptoms procedure are in the results section. CONSENT/REFUSAL FOR Routine 09/06/2018 4:02 DIAGNOSIS AND TREATMENT PM CDT AGREEMENTS Routine 09/06/2018 12:01 AUTHORIZATIONS AND AM CDT IRREVOCABLE ASSIGNMENTS (FORM 2001) documented in this encounter Results POCT GLUCOSE (AUTOMATED) (09/08/2018 8:41 AM CDT) POCT GLU 88 70 - 110 mg/dL [facility] Specimen Blood Performing Organization Address City/State/Zipcode Phone Number [facility] CLIA: [id number], [address] [place] [address] [phone] [facility] CBC WITH DIFFERENTIAL (09/08/2018 5:06 AM CDT) WBC 7.30 4.30 - 11.10 [facility] 10*3/L SERVICES RBC 3.98 3.93 - 5.25 [facility] 10*6/L SERVICES HGB 11.5 (L) 11.6 - 15.0 [facility] g/dL SERVICES HCT 35.0 (L) 35.7 - 45.2 % [facility] SERVICES MCV 87.9 80.6 - 95.5 fL [facility] SERVICES MCH 28.9 25.9 - 32.8 pg [facility] SERVICES MCHC 32.9 31.6 - 35.1 [facility] g/dL SERVICES RDW-SD 41.7 39.0 - 49.9 fL [facility] SERVICES RDW-CV 12.9 12.0 - 15.5 % [facility] SERVICES PLT 252 166 - 358 [facility] 10*3/L SERVICES MPV 10.5 9.5 - 12.9 fL [facility] SERVICES NRBC/100 WBC 0.0 0.0 - 10.0 /100 [facility] WBCs SERVICES NRBC x10^3 <0.01 10*3/L [facility] SERVICES GRAN MAT (NEUT) % 62.3 % [facility] IMM GRAN % 0.40 % [facility] LYMPH % 27.5 % [facility] MONO % 6.2 % [facility] EOS % 3.2 % [facility] BASO % 0.4 % [facility] GRAN MAT x10^3(ANC) 4.55 1.88 - 7.09 [facility] 10*3/uL SERVICES IMM GRAN x10^3 0.03 0.00 - 0.06 [facility] 10*3/uL SERVICES LYMPH x10^3 2.01 1.32 - 3.29 [facility] 10*3/uL SERVICES MONO x10^3 0.45 0.33 - 0.92 [facility] 10*3/uL SERVICES EOS x10^3 0.23 0.03 - 0.39 [facility] 10*3/uL SERVICES BASO x10^3 0.03 0.01 - 0.07 [facility] 10*3/uL SERVICES Specimen Blood - ARM, RIGHT Performing Organization Address City/State/Zipcode Phone Number [facility] CLIA: [id number], [address] [place] [address] [phone] [facility] BASIC METABOLIC PANEL (NA, K, CL, CO2, GLUCOSE, BUN, CREATININE, CA) (2018 5:06 AM CDT) NA 141 135 - 145 [facility] mmol/L SERVICES K 3.8Comment: 3.5 - 5.0 [facility] Slight hemolysis mmol/L SERVICES CL 106 98 - 108 [facility] mmol/L SERVICES CO2 TOTAL 28 23 - 31 [facility] mmol/L SERVICES AGAP 7 2 - 16 [facility] SERVICES BUN 14Comment: Slight 7 - 23 mg/dL [facility] hemolysis SERVICES GLUCOSE 125 (H) 70 - 110 [facility] mg/dL SERVICES CREATININE 0.62 0.50 - 1.04 [facility] mg/dL SERVICES CALCIUM 8.8 8.6 - 10.6 [facility] mg/dL SERVICES eGFR Calculation 104.6 mL/min/1.73m2 [facility] (Non- SERVICES Macedonian) eGFR Calculation 126.7 mL/min/1.73m2 [facility] () SERVICES Specimen Blood - ARM, RIGHT Narrative Performed At Association of Glomerular Filtration Rate (GFR) and Staging [facility] of Kidney Disease* + + + + | GFR (mL/min/1.73 m2)| With Kidney Damage|Without Kidney Damage + + + + |>90|Stage one| Normal + + + + |60-89|Stage two| Decreased GFR + + + + |30-59|Stage three| Stage three + + + + |15-29|Stage four | Stage four + + + + |<15 (or dialysis)|Stage five | Stage five + + + + *Each stage assumes the associated GFR level has been in effect for at least three months.Stages 1 to 5, with or without kidney disease, indicate chronic kidney disease. Notes: Determination of stages one and two (with eGFR >59mL/min/1.73 m2) requires estimation of kidney damage for at least three months as defined by structural or functional abnormalities of the kidney, manifested by either: Pathological abnormalities or Markers of kidney damage (including abnormalities in the composition of the blood or urine or abnormalities in imaging tests). Performing Organization Address City/State/Zipcode Phone Number [facility] CLIA: [id number], [address] [place] [address] [facility] POCT GLUCOSE (AUTOMATED) (09/07/2018 8:35 PM CDT) [facility] Signature POCT GLU 94 70 - 110 mg/dL [facility] Specimen Blood Performing Organization Address City/[facility]/Zipcode Phone Number [facility] CLIA: [id number], [address] [place] [address] [facility] MR BRAIN WO CONTRAST (09/07/2018 10:30 AM CDT) Specimen Impressions Performed At PACS/VR/DOSE Normal MRI of the brain. . I, Kareem Alvarez MD., have reviewed this study and agree with the above report. Narrative Performed At * * * * * * * * ORIGINAL REPORT * * * * * * * * PACS/VR/DOSE MR BRAIN WO CONTRAST COMPARISON: CT head without contrast 04/18/2016, 09/06/2018. CT angiogram head 09/06/2018. HISTORY: Stroke suspected, focal neuro deficit, > 6 hrs TECHNIQUE: Multisequence multiplanar MRI of brain without contrast was performed on a 3T MRI FINDINGS: The ventricles and cerebral sulci are normal in caliber and configuration. No midline shift, hydrocephalus or pathological extra-axial fluid collection is present. The basal cisterns are unremarkable. No restricted diffusion is present to suggest acute infarct. No abnormal parenchymal signal abnormality is present. A small focus of gradient blooming is noted adjacent to the anterior horn of the right lateral ventricle without corresponding attenuation abnormality on the recent CT likely representing nonspecific microhemorrhage or mineralization. The T2 flow voids for the major intracranial vessels are unremarkable. A small retention cyst is noted in the left frontal sinus. No abnormal fluid signal is present in the mastoid air cells or draining visualized paranasal air sinuses. Procedure Note [facility], Radiant Results Inft User - 09/07/2018 12:45 PM CDT * * * * * * * * ORIGINAL REPORT * * * * * * * * MR BRAIN WO CONTRAST COMPARISON: CT head without contrast 04/18/2016, 09/06/2018. CT angiogram head 09/06/2018. HISTORY: Stroke suspected, focal neuro deficit, > 6 hrs TECHNIQUE: Multisequence multiplanar MRI of brain without contrast was performed on a 3T MRI FINDINGS: The ventricles and cerebral sulci are normal in caliber and configuration. No midline shift, hydrocephalus or pathological extra-axial fluid collection is present. The basal cisterns are unremarkable. No restricted diffusion is present to suggest acute infarct. No abnormal parenchymal signal abnormality is present. A small focus of gradient blooming is noted adjacent to the anterior horn of the right lateral ventricle without corresponding attenuation abnormality on the recent CT likely representing nonspecific microhemorrhage or mineralization. The T2 flow voids for the major intracranial vessels are unremarkable. A small retention cyst is noted in the left frontal sinus. No abnormal fluid signal is present in the mastoid air cells or draining visualized paranasal air sinuses. IMPRESSION Normal MRI of the brain. . I, Kareem Alvarez MD., have reviewed this study and agree with the above report. Performing Organization Address City/[facility] Phone Number PACS/VR/DOSE POCT GLUCOSE (AUTOMATED) (09/07/2018 7:39 AM CDT) POCT GLU 95 70 - 110 mg/dL [facility] Specimen Blood Performing Organization Address [facility] [place] Number [facility] CLIA: [id number], [address] [place] [address] [facility] FASTING LIPID PANEL (76777)(TOTAL CHOLESTEROL, TRIGLYCERIDES, HDL) (09/07/2018 3:35 AM CDT) CHOL 149 120 - 200 mg/dL [facility] HDL 26 (L) >50 mg/dL [facility] HDLC RATIO 5.7 (H) <=4.5 [facility] TRIG 186 (H) 30 - 170 mg/dL [facility] LDL CHOL 86 <=160 mg/dL [facility] VLDL 37 5 - 60 mg/dL [facility] Specimen Blood - VENOUS Performing Organization Address [facility] [place] Phone Number [facility] CLIA: [id number], [address] [place] [address] [phone] [facility] MRSA / MSSA Screen by PCR, Nares (09/07/2018 3:35 AM CDT) MRSA Screen by PCR, Negative Negative [facility] Nares SERVICES MSSA Screen by PCR, Positive (A) Negative [facility] Nares SERVICES MRSA/MSSA Positive? Yes (A) No [facility] Specimen Swab - NARES, BOTH SIDES Narrative Performed At A positive test result does not necessarily indicate the [facility] presence of viable organism. Performing Organization Address City/[facility] Phone Number [facility] CLIA: [id number], [address] [place] [address] [phone] [facility] BODY FLUID MANUAL DIFF (09/07/2018 3:30 AM CDT) BF LYMPHS 26 (L) 28 - 96 % [facility] MACROPHAGE 10 (L) 16 - 56 % [facility] #CELS CNTD 36 [facility] Specimen Cerebrospinal Fluid - CEREBRAL SPINAL FLUID Narrative Performed At Less than 100 cells counted due to low WBC; Differential is [facility] not reported in percent.37 cells counted:0 Neutrophils, 27 Lymphocytes, 10 Macrophages Performing Organization Address City/[facility] Phone Number [facility] CLIA: [id number], [address] [place] [address] [phone] [facility] BODY FLUID DIRECT COUNT (09/07/2018 3:30 AM CDT) BF COLOR Clear [facility] BF WBC Count 1 0 - 5 /L [facility] BF RBC Count 1 /L [facility] Specimen Cerebrospinal Fluid - CEREBRAL SPINAL FLUID Performing Organization Address City/[facility] Phone Number [facility] CLIA: [id number], [address] [place] [phone] [facility] MENINGITIS/ENCEPHALITIS PANEL BY PCR (09/07/2018 3:30 AM CDT) Escherichia coli K1 Negative Negative, [facility] Indeterminate, SERVICES See Comment Haemophilus influenzae Negative Negative, [facility] Indeterminate, SERVICES See Comment Listeria monocytogenes Negative Negative, [facility] Indeterminate, SERVICES See Comment Neisseria meningitidis Negative Negative, [facility] (encapsulated) Indeterminate, SERVICES See Comment Streptococcus agalactiae Negative Negative, [facility] Indeterminate, SERVICES See Comment Streptococcus pneumoniae Negative Negative, [facility] Indeterminate, SERVICES See Comment Cytomegalovirus Negative Negative, [facility] Indeterminate, SERVICES See Comment Enterovirus Negative Negative, [facility] Indeterminate, SERVICES See Comment Herpes simplex virus 1 Negative Negative, [facility] Indeterminate, SERVICES See Comment Herpes simplex virus 2 Negative Negative, [facility] Indeterminate, SERVICES See Comment Human herpesvirus 6 Negative Negative, [facility] Indeterminate, SERVICES See Comment Human parechovirus Negative Negative, [facility] Indeterminate, SERVICES See Comment Varicella zoster virus Negative Negative, [facility] Indeterminate, SERVICES See Comment Cryptococcus Negative Negative, [facility] neoformans/gattii Indeterminate, SERVICES See Comment Specimen Cerebrospinal Fluid - LUMBAR PUNCTURE Narrative Performed At Negative: [facility] A negative result does not rule-out infection.This assay does not test for all potential infectious agents. Positive: A positive test result does not necessarily indicate the presence of viable organism. Performing Organization Address [facility] [place] Phone Number [facility] CLIA: [id number], [address] [place] [phone] [facility] EXTRA TUBE CSF (09/07/2018 3:30 AM CDT) Specimen Cerebrospinal Fluid - CORD Performing Organization Address [facility] [place] Phone Number [facility] CLIA: [id number], [address] [place] [phone] [facility] CEREBROSPINAL FLUID PROTEIN (09/07/2018 3:30 AM CDT) Pathologist [facility] T. PRO CSF 39.0 15.0 - 45.0 [facility] mg/dL SERVICES UNSPUN BODY FLUID Colorless [facility] COLOR SERVICES UNSPUN BODY FLUID Clear [facility] CLARITY SERVICES SPUN BODY FLUID Colorless [facility] COLOR SERVICES SPUN BODY FLUID Clear [facility] CLARITY SERVICES Sediment Comment: The [facility] sediment volume SERVICES is <0.01 mLs of the total fluid volume of 5 mLs and its color is red. Specimen Cerebrospinal Fluid - LUMBAR PUNCTURE Performing Organization Address [facility] [place] Phone Number [facility] CLIA: [id number], [address] [place] [phone] [facility] CEREBROSPINAL FLUID GLUCOSE (09/07/2018 3:30 AM CDT) GLU CSF 47 (L) 50 - 80 mg/dL [facility] SERVICES UNSPUN BODY FLUID Colorless [facility] COLOR SERVICES UNSPUN BODY FLUID Clear [facility] CLARITY SERVICES SPUN BODY FLUID Colorless [facility] COLOR SERVICES SPUN BODY FLUID Clear [facility] CLARITY SERVICES Sediment Comment: The [facility] sediment volume SERVICES is <0.01 mLs of the total fluid volume of 5 mLs and its color is red. Specimen Cerebrospinal Fluid - LUMBAR PUNCTURE Performing Organization Address [facility] Phone Number [facility] CLIA: [id number], [address] [place] [phone] [facility] aPTT (09/07/2018 1:54 AM CDT) APTT Patient 29 26 - 36 Seconds [facility] SERVICES Specimen Blood - VENOUS Performing Organization Address City/State/Zipcode Phone Number [facility] CLIA: [id number], [address] [place] [id number] [facility] PROTHROMBIN TIME / INR (09/07/2018 1:54 AM CDT) PROTIME PATIENT 11.2 10.1 - 12.6 [facility] Seconds SERVICES INR 1.0Comment: Normal [facility] INR <1.1; Warfarin SERVICES Therapeutic range 2.0 to 3.0 or 2.5 to 3.5, depending upon the indications. Specimen Blood - VENOUS Performing Organization Address City/[facility] Phone Number [facility] CLIA: [id number], [address] [place] [id number] [facility] THYROID STIMULATING HORMONE (09/07/2018 12:22 AM CDT) Pathologist [facility] TSH 4.50Comment: Biotin 0.45 - 4.70 [facility] has been reported mIU/L SERVICES to cause a negative bias, interpret results relative to patient's use of biotin. Specimen Blood - VENOUS Performing Organization Address City/[facility] Phone Number [facility] CLIA: [id number], [address] [place] [id number] [phone] [facility] URINALYSIS (09/06/2018 4:48 PM CDT) Pathologist [facility] APPEARANCE Clear Clear [facility] COLOR Colorless (A) Yellow [facility] PH 6.0 4.8 - 8.0 [facility] SP GRAVITY <=1.005 1.003 - 1.030 [facility] GLU U QUAL Negative Negative [facility] BLOOD Trace (A) Negative [facility] KETONES Negative Negative [facility] PROTEIN Negative Negative [facility] UROBILIN 0.2 mg/dL 0-1.0 mg/dL [facility] BILIRUBIN Negative Negative [facility] NITRITE Negative Negative [facility] LEUK PAKO Negative Negative [facility] RBC/HPF 1 0 - 3 HPF [facility] WBC/HPF 0 0 - 5 HPF [facility] BACTERIA Negative Negative [facility] SQ EPITH 1 HPF [facility] Specimen Urine - URINE, CLEAN CATCH Performing Organization Address [facility] [place] Number [facility] CLIA: [id number], [address] [place] [id number] ADC / LCC - DRUG SCREEN TRIAGE (09/06/2018 4:47 PM CDT) BENZO U Negative Negative [facility] SRUTHI U Negative Negative [facility] AMPHET Negative Negative [facility] THC Negative Negative [facility] METHADONE Negative Negative [facility] Meth U Negative Negative [facility] OPIATES Negative Negative [facility] Cocaine Metabolite Presumptive Negative [facility] (A) [facility] PROPOXY Negative Negative [facility] Tric U Negative Negative [facility] PCP Negative Negative [facility] OXYCOD Negative Negative [facility] Specimen Urine - URINE, CLEAN CATCH Narrative Performed At Urine Drug Cutoff Ranges [facility] Benzodiazepines: 150 ng/mL Barbiturates: 200 ng/mL Amphetamine: 500 ng/mL Cannabinoids: 50ng/mL Methadone: 200 ng/mL Methamphetamine: 500 ng/mL Opiates: 100 ng/mL or 2000 ng/mL Cocaine: 150 ng/mL Propoxyphene:300 ng/mL Tricyclics:300 ng/mL Oxycodone: 100 ng/mL PCP: 25ng/mL The results are to be used only for medical (i.e., treatment) purposes. Unconfirmed screening results must not be used for non-medical purposes (e.g., employment testing, legal testing). Performing Organization Address [facility] [place] Phone Number [facility] CLIA: [id number], [address] [place] [phone] ANGIOGRAM HEAD (09/06/2018 4:38 PM CDT) Specimen Narrative Performed At HISTORY:Stroke suspected, focal neurological deficits. PACS/VR/DOSE TECHNIQUE: Contrast-enhanced 64-mutidetector CT arteriogram study of intracranial major arteries is completed followed by multiplanar reformations. FINDINGS: Excellent visualization of arterial anatomy of major intracranial arterial circulation demonstrated in the raw images as well as processed angiogram images. Right middle cerebral artery is quite tortuous at the bifurcation with suspicious findings of 3.5 mm size aneurysm. CONCLUSIONS: No acute intracranial finding and CT angiography study. However, there is 3.5 mm size aneurysm suspected at the bifurcation of right middle cerebral artery. Procedure Note [facility], Radiant Results Inft User - 09/06/2018 4:54 PM CDT HISTORY: Stroke suspected, focal neurological deficits. TECHNIQUE: Contrast-enhanced 64-mutidetector CT arteriogram study of intracranial major arteries is completed followed by multiplanar reformations. FINDINGS: Excellent visualization of arterial anatomy of major intracranial arterial circulation demonstrated in the raw images as well as processed angiogram images. Right middle cerebral artery is quite tortuous at the bifurcation with suspicious findings of 3.5 mm size aneurysm. CONCLUSIONS: No acute intracranial finding and CT angiography study. However, there is 3.5 mm size aneurysm suspected at the bifurcation of right middle cerebral artery. Performing Organization Address City/State/Zipcode Phone Number PACS/VR/DOSE CBC WITH DIFFERENTIAL (09/06/2018 4:38 PM CDT) WBC 9.94 4.30 - 11.10 [facility] 10*3/L [facility] RBC 3.89 (L) 3.93 - 5.25 [facility] 10*6/L HOSPITAL LABORATORY HGB 11.4 (L) 11.6 - 15.0 [facility] g/dL [facility] HCT 35.1 (L) 35.7 - 45.2 % [facility] MCV 90.2 80.6 - 95.5 fL [facility] MCH 29.3 25.9 - 32.8 pg [facility] MCHC 32.5 31.6 - 35.1 [facility] g/dL [facility] RDW-SD 42.7 39.0 - 49.9 fL [facility] RDW-CV 13.0 12.0 - 15.5 % [facility] PLT 270 166 - 358 [facility] 10*3/L [facility] MPV 11.1 9.5 - 12.9 fL [facility] NRBC/100 WBC 0.0 0.0 - 10.0 /100 [facility] WBCs [facility] NRBC x10^3 <0.01 10*3/L [facility] GRAN MAT (NEUT) % 64.8 % [facility] IMM GRAN % 0.30 % [facility] LYMPH % 24.3 % [facility] MONO % 6.8 % [facility] EOS % 3.3 % [facility] BASO % 0.5 % [facility] GRAN MAT x10^3(ANC) 6.43 1.88 - 7.09 [facility] 10*3/uL HOSPITAL LABORATORY IMM GRAN x10^3 0.03 0.00 - 0.06 [facility] 10*3/uL [facility]ITAL LAB[facility]ORY LYMPH x10^3 2.42 1.32 - 3.29 [facility] 10*3/uL [facility] LAB[facility] MONO x10^3 0.68 0.33 - 0.92 [facility] 10*3/uL [facility]ITAL LAB[facility]ORY EOS x10^3 0.33 0.03 - 0.39 [facility] 10*3/uL [facility]ITAL LAB[facility]ORY BASO x10^3 0.05 0.01 - 0.07 [facility] 10*3/uL [facility] Specimen Blood - VENOUS Performing Organization Address City/[facility]/Zipcode Phone Number [facility] CLIA: [id number], [address] [place] [address] GLYCOSYLATED HEMOGLOBIN (A1C) (09/06/2018 4:38 PM CDT) HGB A1C 5.5 4.0 - 6.0 % NGSP [facility] Specimen Blood - VENOUS Narrative Performed At %A1C (NGSP) Interpretation (ADA) [facility] 4.8-5.6 Normal or (Non-Diabetic Range) 5.7-6.4 Increased Risk (Pre-Diabetic) >6.5Diabetes Indicated Performing Organization Address City/[facility]/Zipcode Phone Number [facility] CLIA: [id number], [address] [place] [address] LIPID PANEL ([id number])(TOTAL CHOLESTEROL, TRIGLYCERIDES, HDL) (09/06/2018 4:38 PM CDT) CHOL 153 120 - 200 mg/dL [facility] HDL 32 (L) >50 mg/dL [facility] HDLC RATIO 4.8 (H) <=4.5 [facility] TRIG 223 (H) 30 - 170 mg/dL [facility] LDL CHOL 76 <=160 mg/dL [facility] VLDL 45 5 - 60 mg/dL [facility] Specimen Blood - VENOUS Performing Organization Address [facility] Phone Number [facility] CLIA: [id number], [address] [place] [address] TROPONIN I (09/06/2018 4:38 PM CDT) [facility] TROPONIN I 0.002 <=0.034 ng/mL [facility] Specimen Blood - VENOUS Narrative Performed At Equal or Less than 0.034 ng/ml---Normal [facility] Note: Cardiac troponin begins to rise 3-4 hours after the onset of ischemia. Repeat in 4-6 hours if the sample was drawn within 3-4 hours of the onset of the symptom and found normal. Between 0.035 and 0.120 ng/mL--- Borderline. Questionable myocardial injury or necrosis Note: Serial measurement may be necessary to confirm or exclude the diagnosis of myocardial injury or necrosis; Clinical correlation (symptoms, EKGs, imaging studies, and others) required; Repeat in 4-6 hours if clinically indicated. Equal or Higher than 0.121 ng/mL---Abnormal. Myocardial Injury or Necrosis Likely Biotin has been reported to cause a negative bias, interpret results relative to patient's use of biotin. Performing Organization Address [facility] Phone Number [facility] CLIA: [id number], [address] [place] [address] COMP. METABOLIC PANEL ([id number]) (09/06/2018 4:38 PM CDT) NA 145 135 - 145 [facility] mmol/L [facility] K 3.9 3.5 - 5.0 [facility] mmol/L HOSPITAL LABORATORY CL 110 (H) 98 - 108 mmol/L [facility] CO2 TOTAL 27 23 - 31 mmol/L [facility] AGAP 8 2 - 16 [facility] BUN 10 7 - 23 mg/dL [facility] GLUCOSE 92 70 - 110 mg/dL [facility] CREATININE 0.69 0.50 - 1.04 [facility] mg/dL [facility] TOTAL BILI 0.6 0.1 - 1.1 mg/dL [facility] CALCIUM 9.0 8.6 - 10.6 [facility] mg/dL [facility] T PROTEIN 7.5 6.3 - 8.2 g/dL [facility] ALBUMIN 4.2 3.5 - 5.0 g/dL [facility] ALK PHOS 139 (H) 34 - 122 U/L [facility] ALT(SGPT) 30 9 - 51 U/L [facility] AST(SGOT) 24 13 - 40 U/L [facility] eGFR Calculation 92.4 mL/min/1.73m2 [facility] ([facility] LABORATORY [place]) eGFR Calculation 112.0 mL/min/1.73m2 [facility] () [facility] Specimen Blood - VENOUS Narrative Performed At Association of Glomerular Filtration Rate (GFR) [facility] LAB[facility]ORY and Staging of Kidney Disease* + + +- + | GFR (mL/min/1.73 m2)| With Kidney Damage|Without Kidney Damage + + +- + |>90| Stage one| Normal + + +- + |60-89|S tage two| Decreased GFR + + +- + |30-59|S tage three| Stage three + + +- + |15-29|S tage four | Stage four + + +- + |<15 (or dialysis)|Stage five | Stage five + + +- + *Each stage assumes the associated GFR level has been in effect for at least three months.Stages 1 to 5, with or without kidney disease, indicate chronic kidney disease. Notes: Determination of stages one and two (with eGFR >59mL/min/1.73 m2) requires estimation of kidney damage for at least three months as defined by structural or functional abnormalities of the kidney, manifested by either: Pathological abnormalities or Markers of kidney damage (including abnormalities in the composition of the blood or urine or abnormalities in imaging tests). Performing Organization Address City/State/Zipcode Phone Number [facility] CLIA: [id number], [address] [place] [address] [facility] [address] ANGIOGRAM NECK (09/06/2018 4:37 PM CDT) Specimen Narrative Performed At HISTORY: Stroke suspected, focal neurological deficit. PACS/VR/DOSE TECHNIQUE: Contrast-enhanced 64-mutidetector CT angiography of arteries in the neck is completed with intravenous injection of Omnipaque 350 nonionic contrast medium. Subsequently multiple sagittal, coronal and MIP angiographic images are reformatted from the 3-D volume data set. FINDINGS: All 4 vessels in the neck are patent. No abnormalities seen at the origins of great vessels from the aortic arch. Trachea and visualized upper bronchial airways appear normal. No focal lesions are seen in the thyroid gland. RIGHT CAROTID: Slightly tortuous common carotid and internal carotid artery arteries. Otherwise normal. LEFT CAROTID: Normal. VERTEBRALS: Both vertebral arteries are patent with antegrade flow confirmed. Left vertebral artery is arising directly from the aortic arch, a developmental variation. CONCLUSIONS: Essentially normal study. Procedure Note [facility], Radiant Results Inft User - 09/06/2018 4:41 PM CDT HISTORY: Stroke suspected, focal neurological deficit. TECHNIQUE: Contrast-enhanced 64-mutidetector CT angiography of arteries in the neck is completed with intravenous injection of Omnipaque 350 nonionic contrast medium. Subsequently multiple sagittal, coronal and MIP angiographic images are reformatted from the 3-D volume data set. FINDINGS: All 4 vessels in the neck are patent. No abnormalities seen at the origins of great vessels from the aortic arch. Trachea and visualized upper bronchial airways appear normal. No focal lesions are seen in the thyroid gland. RIGHT CAROTID: Slightly tortuous common carotid and internal carotid artery arteries. Otherwise normal. LEFT CAROTID: Normal. VERTEBRALS: Both vertebral arteries are patent with antegrade flow confirmed. Left vertebral artery is arising directly from the aortic arch, a developmental variation. CONCLUSIONS: Essentially normal study. Performing Organization Address City/State/Zipcode Phone Number PACS/VR/DOSE CT HEAD WO CONTRAST (09/06/2018 4:28 PM CDT) Specimen Narrative Performed At HISTORY: Stroke suspected. PACS/VR/DOSE TECHNIQUE: Axial non contrast enhanced study is obtained. Comparison is made with 04/18/2016 study. DOSE: Up-to-date CT equipment and radiation dose reduction techniques were employed. CTDIvol: 38.99 mGy. DLP: 727 mGy-cm. FINDINGS:No acute intracranial hemorrhage, midline shift, pressure effect on the brain. No abnormal fluid collection detected in the extra-axial compartment. Ventricular system and cortical sulci are within normal limits for the patient's age. Bone windows showed no gross pathology in the temporal bone anatomy. 10 mm mucous cyst noted in the left frontal sinus. Remaining paranasal sinuses are clear. CONCLUSION: No acute intracranial findings in non contrast enhanced CT scan of brain. Procedure Note [facility], Radiant Results Inft User - 09/06/2018 4:31 PM CDT HISTORY: Stroke suspected. TECHNIQUE: Axial non contrast enhanced study is obtained. Comparison is made with 04/18/2016 study. DOSE: Up-to-date CT equipment and radiation dose reduction techniques were employed. CTDIvol: 38.99 mGy. DLP: 727 mGy-cm. FINDINGS: No acute intracranial hemorrhage, midline shift, pressure effect on the brain. No abnormal fluid collection detected in the extra-axial compartment. Ventricular system and cortical sulci are within normal limits for the patient's age. Bone windows showed no gross pathology in the temporal bone anatomy. 10 mm mucous cyst noted in the left frontal sinus. Remaining paranasal sinuses are clear. CONCLUSION: No acute intracranial findings in non contrast enhanced CT scan of brain. Performing Organization Address City/State/Zipcode Phone Number PACS/VR/DOSE documented in this encounter Visit Diagnoses Diagnosis Numbness and tingling of left upper extremity - Primary Numbness and tingling of left lower extremity Stroke-like symptoms Other symptoms involving nervous and musculoskeletal systems Generalized abdominal pain Abdominal pain, generalized Abdominal pain, unspecified abdominal location Vasospasm of cerebral artery Unspecified transient cerebral ischemia Stroke Unspecified cerebral artery occlusion with cerebral infarction Obesity (BMI 30-39.9) Obesity, unspecified documented in this encounter Administered Medications Medication Order MAR Action Action Date Dose Rate Site acetaminophen (TYLENOL) tablet Given 09/07/2018 7:53 PM CDT 650 mg 650 mg 650 mg, Oral, Q6HPRN, Starting Mon09/07/18 at 0012, Until Discontinued, Routine, Pain (scale 4-6) acetaminophen-codeine (TYLENOL #3) 300-30 Given 09/08/2018 1:25 AM CDT 1 tablet mg tablet 1 tablet 1 tablet, Oral, Q6HPRN, Starting 09/08/18 at 0102, Until Discontinued, Routine, Pain (scale 4-6), Pain (scale 7-10) aspirin chewable tablet 81 mg Given 09/08/2018 8:39 AM CDT 81 mg 81 mg, Oral, DAILY, First dose on Mon09/07/18 at 0900, Until Discontinued, Routine Given 09/07/2018 8:14 AM CDT 81 mg atorvastatin (LIPITOR) tablet 20 mg Given 09/07/2018 7:53 PM CDT 20 mg 20 mg, Oral, QHS, First dose on Mon09/07/18 at 2100, Until Discontinued, Routine dwqthybrde-ohaqruxuzpmme-zpfw (ESGIC) Given 09/06/2018 11:34 PM CDT 1 tablet 50-325-40 mg tablet 1 tablet 1 tablet, Oral, Q6HPRN, Starting Rocio 09/06/18 at 2319, Until Discontinued, Routine, Pain (scale 4-6) clonazePAM (KLONOPIN) tablet 1 mg Given 09/08/2018 8:39 AM CDT 1 mg 1 mg, Oral, BID, First dose on Mon09/07/18 at 0800, Until Discontinued, Routine Given 09/07/2018 7:53 PM CDT 1 mg Given 09/07/2018 8:14 AM CDT 1 mg heparin injection 5,000 Units Given 09/08/2018 8:39 AM CDT 5,000 Units Abdomen-SC 5,000 Units, Subcutaneous, Q12H, First dose on Mon09/07/18 at 2000, Until Discontinued, Routine Given 09/07/2018 7:54 PM CDT 5,000 Units Abdomen-SC pantoprazole (PROTONIX) EC tablet 40 mg Given 09/08/2018 8:39 AM CDT 40 mg 40 mg, Oral, BID, First dose on Mon09/07/18 at 0800, Until Discontinued, Routine Given 09/07/2018 7:53 PM CDT 40 mg Given 09/07/2018 8:14 AM CDT 40 mg pregabalin (LYRICA) capsule 100 mg Given 09/08/2018 8:39 AM CDT 100 mg 100 mg, Oral, BID, First dose on Mon09/07/18 at 0800, Until Discontinued, Routine, research staff member approving Restricted medication: RAMOS MATHEWS Given 09/07/2018 7:53 PM CDT 100 mg Given 09/07/2018 8:14 AM CDT 100 mg Sliding Scale Insulin - Aspart (NOVOLOG) + Fsbg Testing Subcutaneous, TID MEALS+HS, First dose on Mon09/07/18 at 0800, Until Discontinued, Routine Medication Order MAR Action Action Date Dose Rate Site acetaminophen (TYLENOL) tablet Given 09/06/2018 6:19 PM CDT 650 mg 650 mg 650 mg, Oral, ONCE, 1 dose, [facility] 09/06/18 at 1930, CHELSEY aspirin tablet 325 mg Given 09/06/2018 11:35 PM CDT 325 mg 325 mg, Oral, ONCE, 1 dose, Mon09/07/18 at 0030, CHELSEY contrast previously administered 0 mL Given 09/06/2018 4:30 PM CDT Intravenous, ONCE, 1 dose, [facility] 09/06/18 at 1645, Routine FENTanyl PF (SUBLIMAZE (PF)) injection Given 09/07/2018 1:50 PM CDT 25 mcg Slow IV Push, PRN, Starting Mon09/07/18 at 1300, Until Mon09/07/18 at 1350, Routine Given 09/07/2018 1:13 PM CDT 25 mcg Given 09/07/2018 1:00 PM CDT 25 mcg heparin flush (PF) 2,000 units in 1000 mL Given 09/07/2018 1:00 PM CDT 3, 000 mL NS RTU injection IV Push, PRN, Starting Mon09/07/18 at 1300, Until Mon09/07/18 at 1300, Routine iohexol (OMNIPAQUE 350 BULK-100 mL) Given 09/06/2018 4:30 PM CDT 100 mL injection 100 mL 100 mL, Intravenous, ONCE, 1 dose, [facility] 09/06/18 at 1645, Routine lidocaine (LIDODERM) 5 % (700 mg/patch) Given 09/08/2018 1:35 AM CDT 1 Patch patch 1 Patch 1 Patch, Topical, Administer over 12 Hours, ONCE, 1 dose, [facility] 09/08/18 at 0215, Routine lidocaine 1% (PF) (XYLOCAINE) injection 5 mL Given 09/07/2018 3:12 AM CDT 5 mL 5 mL, Infiltration, ONCE, 1 dose, Mon09/07/18 at 0345, Routine lidocaine 1% (PF) (XYLOCAINE) injection Given 09/07/2018 1:10 PM CDT 10 mL PRN, Starting Mon09/07/18 at 1310, Until Mon09/07/18 at 1310, Routine midazolam (VERSED) injection Given 09/07/2018 1:50 PM CDT 0.5 mg IV Push, PRN, Starting Mon09/07/18 at 1300, Until Mon09/07/18 at 1350, Routine Given 09/07/2018 1:13 PM CDT 0.5 mg Given 09/07/2018 1:00 PM CDT 0.5 mg NaCl 0.9% (NS) bolus infusion 500 New Bag 09/08/2018 10:12 AM CDT 500 mL 999 mL/hr mL at 999 mL/hr, 500 mL, IV Piggyback, ONCE, 1 dose, 09/08/18 at 0715, STAT NaCl 0.9% (NS) IV infusion 1,000 New Bag 09/07/2018 11:39 AM CDT 1,000 mL 150 mL/hr mL at 150 mL/hr, IV Infusion, CONTINUOUS, Starting Mon09/07/18 at 1015, Until Mon09/07/18 at 1504, Routine Saline Bubble Study Given 09/07/2018 9:21 AM CDT 6 mL Injection, TITRATE - FOR PROCEDURE USE, 1 dose, Starting Mon09/07/18 at 0921, Until Mon09/07/18 at 0921, Routine Saline Bubble Study Given 09/07/2018 9:22 AM CDT 6 mL Injection, TITRATE - FOR PROCEDURE USE, 1 dose, Starting Mon09/07/18 at 0922, Until Mon09/07/18 at 0922, Routine sulfur hexafluoride microsphr (LUMASON) Given 09/07/2018 11:00 AM CDT 5 mL injection 5 mL 5 mL, Intravenous, ONCE, 1 dose, Mon09/07/18 at 1230, Routine sulfur hexafluoride microsphr (LUMASON) Given 09/07/2018 9:22 AM CDT 5 mL injection Intravenous, TITRATE - FOR PROCEDURE USE, 1 dose, Starting Mon09/07/18 at 0922, Until Mon09/07/18 at 0922, Routine documented in this encounter Insurance Payer Benefit Plan / Subscriber ID Effective Dates Phone Address Type Group [place] xxxxxxxxx 2018-Present Medicaid HEALTH PLAN - [facility] MANAGED MEDICAID documented as of this encounter
--- OUTSIDE RECORDS SUMMARY | 2019-04-15 11:30 | XMS REPORT | Summary of Care ---
:1975 Author Organization [facility] - Health Address [address] [place] [address] Care Team Providers Name Role Phone Alaina Bradley Primary Care Provider Reason for Visit Reason Comments Transition Of Care Encounter Details Date Type Department Care Team Description 09/10/2018 Transition of Care [facility] [place], Transition Of Care [facility]- RN [address] [address] Allergies Active Allergy Reactions Severity Noted Date Comments Ciprofloxacin Anaphylaxis 12/09/2015 Sulfa (Sulfonamide Antibiotics) Anaphylaxis 12/09/2015 Ketorolac Tromethamine Anaphylaxis 11/21/2017 Tramadol Anaphylaxis 12/09/2015 documented as of this encounter (statuses as of 09/10/2018) Medications Medication Sig Dispensed Refills Start Date End Date Status simethicone 80 mg Take 1 tablet by 120 tablet 0 05/28/2018 Active chewable mouth after meals tabletIndications: and at bedtime. Constipation, unspecified constipation type hyoscyamine sulfate Place 1 tablet 90 tablet 0 05/28/2018 Active 0.125 mg sublingual under the tongue tabletIndications: before meals. Sphincter of Oddi dysfunction docusate 100 mg Take 1 capsule by 0 05/29/2018 Active capsule mouth daily. Polyethylene Glycol Take 1 Packet by 0 05/28/2018 Active 3350 17 gram powder mouth 2 (two) times daily. sennosides 8.6 mg Take 1 tablet by 0 05/29/2018 Active tablet mouth daily. pantoprazole 40 mg EC Take 1 tablet by 60 tablet 2 05/28/2018 Active tabletIndications: mouth 2 (two) Abdominal pain, times daily. unspecified abdominal location ondansetron (ZOFRAN) 8 Take 1 tablet by 24 tablet 0 05/28/2018 Active mg tabletIndications: mouth every 8 Abdominal pain, (eight) hours as unspecified abdominal needed for Nausea location and Vomiting (N/V). ranitidine (ZANTAC) Take 1 tablet by 30 tablet 1 07/12/2018 Active 150 mg mouth 2 (two) tabletIndications: times daily. Generalized abdominal Follow up with pain your MD for further evaluation and treatment. ondansetron (ZOFRAN Take 1 tablet by 6 tablet 0 07/12/2018 Active ODT) 4 mg mouth every 8 disintegrating (eight) hours as tabletIndications: needed for Nausea Generalized abdominal and Vomiting pain (N/V). acetaminophen 160 mg/5 Take 20.25 mL by 120 mL 0 07/12/2018 Active mL liquidIndications: mouth every 4 Generalized abdominal (four) hours as pain needed for Pain (scale 4-6). clonazePAM 1 mg tablet Take 1 mg by 0 Active mouth 2 (two) times daily. metFORMIN 500 mg Take 500 mg by 0 Active tablet mouth 2 (two) times daily with meals. linaCLOtide (LINZESS) Take by mouth. 0 Active 145 mcg capsule acetaminophen-codeine Take 1 tablet by 12 tablet 0 08/04/2018 Active (TYLENOL-CODEINE #3) mouth every 4 300-30 mg (four) hours as tabletIndications: needed for Pain Chronic pancreatitis, (scale 7-10). unspecified pancreatitis type, Bilateral flank pain, Mild dehydration, Elevated liver function tests dicyclomine (BENTYL) Take 1 capsule by 30 capsule 0 08/20/2018 Active 10 mg mouth every 6 capsuleIndications: (six) hours as Generalized abdominal needed for pain Abdominal pain. pregabalin (LYRICA) Take 100 mg by 0 Active 100 mg capsule mouth 2 (two) times daily. tamsulosin 0.4 mg 24 Take 0.4 mg by 0 Active hr capsule mouth daily. aspirin 81 mg chewable Take 1 tablet by 30 tablet 6 09/09/2018 Active tabletIndications: mouth daily. Numbness and tingling of left upper extremity, Vasospasm of cerebral artery atorvastatin 20 mg Take 1 tablet by 30 tablet 6 09/08/2018 Active tabletIndications: mouth at bedtime. Numbness and tingling of left upper extremity, Vasospasm of cerebral artery documented as of this encounter (statuses as of 09/10/2018) Active Problems Problem Noted Date Obesity (BMI [...] as of this encounter (statuses as of 09/10/2018) Social History Tobacco Use Types Packs/Day Years Used Date Current Every Day Smoker 5 Smokeless Tobacco: Never Used Comments: only smoked social Alcohol Use Drinks/Week oz/Week Comments No Sex Assigned at Date Recorded Not on file Job Start Date Occupation Industry Not on file Not on file Not on file Travel History Travel Start Travel End No recent travel history available. documented as of this encounter Last Filed Vital Signs Not on filedocumented in this encounter Plan of Treatment Health Maintenance Due Date Last Done Comments PNEUMOCOCCAL 0-64 YEARS COMBINED 1980 SERIES (1 of 1 - PPSV23) DTaP,Tdap,and Td Vaccines (1 - Tdap) 1993 PAP SMEAR 05/04/2013 05/04/2010, 10/01/2007, 11/25/2003 MAMMOGRAM 2014 INFLUENZA VACCINE 10/14/2018 documented as of this encounter Implants Implanted Type Area Latex Caster Device Shelf Model / Identifier Expiration Date Serial / Lot Mynx Ink Grinder Vascular Closure Device Suture Right: Cardinal 08/12/2020 [id number] / Implanted: Qty: 1 on 09/07/2018 by Julius Espinosa MD at [facility] Groin [id number] / [id number] documented as of this encounter Results Not on filedocumented in this encounter Insurance Payer Benefit Plan / Subscriber ID Effective Dates Phone Address Type Group [facility] xxxxxxxxx 2018-Present Medicaid HEALTH PLAN - HEALTH MANAGED MEDICAID documented as of this encounter
--- OUTSIDE RECORDS SUMMARY | 2019-04-15 11:31 | XMS REPORT | Summary of Care ---
:1975 Author Organization [facility] - Health Address [address] [place] [address] Care Team Providers Name Role Phone Alaina Bradley Primary Care Provider Reason for Visit Reason Comments Transition Of Care Encounter Details Date Type Department Care Team Description 09/10/2018 Transition of Care [facility] [place], Transition Of Care Health Network- RN [address] [address] Allergies Active Allergy Reactions Severity Noted Date Comments Ciprofloxacin Anaphylaxis 12/09/2015 Sulfa (Sulfonamide Antibiotics) Anaphylaxis 12/09/2015 Ketorolac Tromethamine Anaphylaxis 11/21/2017 Tramadol Anaphylaxis 12/09/2015 documented as of this encounter (statuses as of 09/11/2018) Medications Medication Sig Dispensed Refills Start Date [...] as of this encounter (statuses as of 09/11/2018) Active Problems Problem Noted Date Obesity (BMI [...] as of this encounter (statuses as of 09/11/2018) Social History Tobacco Use Types Packs/Day Years [...] of this encounter Implants Implanted Type Area Manager Oracle Database Device Shelf Model / Identifier Expiration Date Serial / Lot Mynx Barrel Polisher Vascular Closure Device Suture Right: Cardinal 08/12/2020 [id number] / Implanted: Qty: 1 on 09/07/2018 by Julius Espinosa MD at [facility] Groin [id number] / [id number] documented as of this encounter Results Not on filedocumented in this encounter Insurance Payer Benefit Plan / Subscriber ID Effective Dates Phone Address Type Group [facility] xxxxxxxxx 2018-Present Medicaid HEALTH PLAN - HEALTH MANAGED MEDICAID documented as of this encounter
--- OUTSIDE RECORDS SUMMARY | 2019-04-15 11:31 | XMS REPORT ---
:1975 Author Organization [facility] Address [address] [place] [place] [address] Care Team Providers Name Role Phone Unavailable Unavailable Unavailable Payers Payer Name Policy Type Policy Number Effective Date Expiration Date Problems This patient has no known problems. Allergies, Adverse Reactions, Alerts Allergy Name Allergy Status Severity Reaction(s) Onset Inactive Treating Comments Type Date Date Clinician sulfamethoxazol DA Active U 2018-0 e 07-10 00:00: 00 trimethoprim DA Active U 2018-0 07-10 00:00: 00 ciprofloxacin DA Active U 2018-0 07-10 00:00: 00 tramadol DA Active U 2018-0 07-10 00:00: 00 ketorolac DA Active U 2018-0 07-10 00:00: 00 Medications This patient has no known medications. Results Test Description Test Time Test Comments Text Results Atomic Results Result Comments [facility] 2018-07-13 RUN 15:57:00 DATE: 07/13/18 [facility] Lab PAGE 1 RUN TIME: 1557 Specimen Inquiry RUN USER: INTERFACE KRISTIN ENT: KRISTOPHER JENSEN LOC: [place] U #: [id number] AGE/SX: 43/F ROOM: RE07/11/18[facility] DR: Laci Quiroz MD : 73 BED: DIS: STATUS: [facility] TLOC: SPEC #: [id number] RECD: 07/11/18 STATUS: ZOYA ZOILA #: [id number] NISH: 07/11/[address] [facility] [address]: Laci Quiroz MD ENTERED: 07/11/18 SP TYPE: STOMACH OTHR DR: ORDERED: GROSS PROCEDURES: GROSS (07/13/18144) TISSUES: 1. DUODENUM, NOS - BX 2. STOMACH, NOS - BX 3. SIGMOID - POLYP CLINICAL HISTORY COLLECTION DATE: 07/11/2018 FINAL DIAGNOSIS Duodenum, biopsy: SMALL BOWEL MUCOSA WITH NO SIGNIFICANT PATHOLOGIC ALTERATION Stomach, biopsy: REACTIVE GASTROPATHY NEGATIVE FOR HELICOBACTER ORGANISMS NEGATIVE FOR INTESTINAL METAPLASIA NEGATIVE FOR MALIGNANCY Sigmoid colon polyp, biopsy: COLONIC MUCOSA WITH SUBTLE HYPERPLASTIC CHANGE OF SURFACE EPITHELIUM NO ADENOMATOUS CHANGE PRESENT NO CRYPTITIS OR CRYPT DISTORTION PRESENT NEGATIVE FOR MALIGNANCY MULTIPLE LEVELS EXAMINED RRB/keyur D (2) 45515, 35830 MACROSCOPIC Specimen (1) is received in formalin, labeled with the patient's name, identified as "duodenum", and consists of pink biopsy tissue measuring 0.3 cm in aggregate, submitted as (1). Specimen (2) is received in formalin, labeled with the patient's name, identified as "pink-foy", and consists of foy biopsy tissue measuring 0.3 cm in CONTINUED ON NEXT PAGE RUN DATE: 07/13/18 [facility] PAGE 2 RUN TIME: 1557 Specimen Inquiry RUN USER: INTERFACE SPEC #: [id number] PATIENT: KRISTOPHER JENSEN # [id number] (Continued) ------- MACROSCOPIC (Continued) aggregate, submitted as (2) for H E and giemsa stains. Specimen (3) is received in formalin, labeled with the patient's name, identified as "sigmoid polyp", and consists of pink-foy biopsy tissue measuring 0.25 cm in aggregate, submitted as (3). GROSS PERFORMED AT [facility] [address] [place] [address] (p)[phone] MICROSCOPIC All of the stains, including any controls performed , stain appropriately. MICROSCOPIC PERFORMED AT [facility] [address] [place] [address] (p)[phone] PERFORMING SITE Diagnosis performed at: [facility] [address] [place] [address] -------- Signed SIGNATURE ON FILE Fernando Marcial MD 07/13/18 1557 END OF REPORT BASIC METABOLIC PANEL 2018-07-11 12:11:00 Test Item Value Reference Range Comments SODIUM (test code=NA) 142 mmol/L 136-145 POTASSIUM (test code=K) 4.2 mmol/L 3.5-5.1 CHLORIDE (test code=CL) 108.0 mmol/L 98-107 CARBON DIOXIDE (test code=CO2) 30.0 mmol/L 21-32 ANION GAP (test code=GAP) 8.2 10-20 GLUCOSE (test code=GLU) 106 mg/dL 74-106 BLOOD UREA NITROGEN (test 12 mg/dL 7-18 code=BUN) GLOMERULAR FILTRATION RATE (test > 60 mL/min >=60 Estimated GFR by using code=GFR) Modified MDRD formula.Chronic kidney disease is defined as either kidney damageor GFR <60 mL/min/1.73 m2 for >3 months. CREATININE (test code=CREAT) 0.60 mg/dL 0.55-1.02 Note change in reference range due to change in reagent. BUN/CREATININE RATIO (test 20.0 10-20 code=BUN/CREA) CALCIUM (test code=CA) 9.8 mg/dL 8.5-10.1 BASIC METABOLIC [id number] 12:08:00 Test Item Value Reference Range Comments SODIUM (test code=NA) 142 mmol/L 136-145 POTASSIUM (test code=K) 4.2 mmol/L 3.5-5.1 CHLORIDE (test code=CL) 108.0 mmol/L 98-107 CARBON DIOXIDE (test code=CO2) mmol/L 21-32 ANION GAP (test code=GAP) 10-20 GLUCOSE (test code=GLU) mg/dL 74-106 BLOOD UREA NITROGEN (test code=BUN) mg/dL 7-18 GLOMERULAR FILTRATION RATE (test code=GFR) mL/min >=60 CREATININE (test code=CREAT) mg/dL 0.55-1.02 BUN/CREATININE RATIO (test code=BUN/CREA) 10-20 CALCIUM (test code=CA) mg/dL 8.5-10.1
--- OUTSIDE RECORDS SUMMARY | 2019-04-15 11:31 | XMS REPORT | Summary of Care ---
:1975 Author Organization [facility] Address [address] [place] [address] Care Team Providers Name Role Phone Alaina Bradley Primary Care Provider Reason for Referral (Routine) Status Reason Specialty Diagnoses / Referred By Referred To Procedures Contact Contact New Request Diagnostic Diagnoses Aneurysm Minda Rodriguez, Radiology Procedures CLINIC VISIT INTERVENTIONAL RADIOLOGY [employer] [address] [place] [address] MRI/CAT Scan (Routine) Status Reason Specialty Diagnoses / Referred By Referred To Procedures Contact Contact New Request Diagnostic Diagnoses Aneurysm Minda Rodriguez, Radiology Procedures MR ANGIOGRAM HEAD W WO CONTRAST [employer] [address] [place] [address] Reason for Visit Reason Comments Follow-up MCA aneurysm Encounter Details Date Type Department Care Team Description 09/18/2018 Case Management [facility] Minda Rodriguez, BANDAR Follow-up (MCA Interventional [address] aneurysm) Radiology [address] [place] [phone] Allergies Active Allergy Reactions Severity Noted Date Comments Ciprofloxacin Anaphylaxis 12/09/2015 Sulfa (Sulfonamide Antibiotics) Anaphylaxis 12/09/2015 Ketorolac Tromethamine Anaphylaxis 11/21/2017 Tramadol Anaphylaxis 12/09/2015 documented as of this encounter (statuses as of 09/18/2018) Medications Medication Sig Dispensed Refills Start Date [...] left upper extremity, Vasospasm of cerebral artery butalbital-acetaminoph Take 1 tablet by 20 tablet 0 09/10/2018 Active en-caff 50-325-40 mg mouth every 4 tabletIndications: (four) hours as Intractable episodic needed for Pain headache, unspecified (scale 4-6). headache type documented as of this encounter (statuses as of 09/18/2018) Active Problems Problem Noted Date Obesity (BMI [...] as of this encounter (statuses as of 09/18/2018) Social History Tobacco Use Types Packs/Day Years [...] filedocumented in this encounter Plan of Treatment Name Type Priority Associated Diagnoses Order Schedule MR ANGIOGRAM HEAD W WO IMAGING Routine Aneurysm Expected: 09/18/2018, CONTRAST Expires: 09/19/2019 Health Maintenance Due Date Last Done Comments PNEUMOCOCCAL 0-64 YEARS COMBINED 1980 SERIES (1 of 1 - PPSV23) DTaP,Tdap,and Td Vaccines (1 - Tdap) 1993 PAP SMEAR 05/04/2013 05/04/2010, 10/01/2007, 11/25/2003 MAMMOGRAM 2014 INFLUENZA VACCINE 10/14/2018 documented as of this encounter Implants Implanted Type Area Micro Computer Specialist Device Shelf Model / Identifier Expiration Date Serial / Lot Mynx Tiller Man Vascular Closure Device Suture Right: Cardinal 08/12/2020 [id number] / Implanted: Qty: 1 on 09/07/2018 by Julius Espinosa MD at [facility] Groin [id number] / [id number] documented as of this encounter Results Not on filedocumented in this encounter Visit Diagnoses Diagnosis Aneurysm - Primary Aneurysm of unspecified site documented in this encounter Insurance Payer Benefit Plan / Subscriber ID Effective Dates Phone Address Type Group [facility] xxxxxxxxx 2018-Present Medicaid HEALTH PLAN - HEALTH MANAGED MEDICAID documented as of this encounter
--- OUTSIDE RECORDS SUMMARY | 2019-04-15 11:31 | XMS REPORT | Summary of Care ---
:1975 Author Organization [facility] - Health Address [address] [place] [id number] Care Team Providers Name Role Phone Mirna Alaina Primary Care Provider Reason for Visit Reason Comments Headache Auth/Cert Status Reason Specialty Diagnoses / Referred By Referred To Procedures Contact Contact Emergency [facility] [address] [place] [address] [place] [address] Encounter Details Date Type Department Care Team Description 09/10/2018 Emergency [facility]-Emergency Argenis Adams, Intractable headache, unspecified chronicity pattern, unspecified headache type (Primary Dx); Department MATERIAL INSPECTOR Intractable episodic headache, unspecified headache type [address] [place] [address] [address] [place] [address] [id number] [place], [place] [id number] Allergies Active Allergy Reactions Severity Noted Date [...] Sign Reading Time Taken Comments Blood Pressure 112/80 09/10/2018 4:55 PM CDT Pulse 60 09/10/2018 4:55 PM CDT Temperature 36.6 C (97.8 F) 09/10/2018 1:40 PM CDT Respiratory Rate 19 09/10/2018 4:55 PM CDT Oxygen Saturation 100% 09/10/2018 4:55 PM CDT Inhaled Oxygen Concentration - - Weight 73.5 kg (162 lb) 09/10/2018 1:40 PM CDT Height - - Body Mass Index 30.63 09/07/2018 9:18 AM CDT documented in this encounter Discharge Instructions Argenis Duncan NP - 09/10/2018Diagnosis: Headache , intractable Follow up with neurology Prescription for Esgic sent to your [facility] AttachmentsThe following attachments cannot be sent through Care Everywhere.Headache, Unspecified ([place])documented in this encounter Plan of Treatment Health Maintenance Due Date Last Done Comments PNEUMOCOCCAL 0-64 YEARS COMBINED 1980 SERIES (1 of 1 - PPSV23) DTaP,Tdap,and Td Vaccines (1 - Tdap) 1993 PAP SMEAR 05/04/2013 05/04/2010, 10/01/2007, 11/25/2003 MAMMOGRAM 2014 INFLUENZA VACCINE 10/14/2018 documented as of this encounter Implants Implanted Type Area Endoscopic Technician Device Shelf Model / Identifier Expiration Date Serial / Lot Mynx Manager Combination Vascular Closure Device Suture Right: [employer] 08/12/2020 [id number] / Implanted: Qty: 1 on 09/07/2018 by [id number] / [id number] documented as of this encounter Procedures Procedure Name Priority Date/Time Associated Diagnosis Comments CBC WITH DIFFERENTIAL STAT 09/10/2018 2:58 Intractable Results for this PM CDT headache, procedure are in unspecified the results chronicity pattern, section. unspecified headache type URINALYSIS STAT 09/10/2018 2:58 Intractable Results for this PM CDT headache, procedure are in unspecified the results chronicity pattern, section. unspecified headache type CBC WITH DIFF STAT 09/10/2018 2:58 Intractable Results for this PM CDT headache, procedure are in unspecified the results chronicity pattern, section. unspecified headache type COMP. METABOLIC PANEL STAT 09/10/2018 2:58 Intractable Results for this (38542) PM CDT headache, procedure are in unspecified the results chronicity pattern, section. unspecified headache type NOTICE OF PRIVACY Routine 09/10/2018 1:06 PRACTICES PM CDT CONSENT/REFUSAL FOR Routine 09/10/2018 1:06 DIAGNOSIS AND PM CDT TREATMENT documented in this encounter Results CBC WITH DIFFERENTIAL (09/10/2018 2:58 PM CDT) WBC 7.43 4.30 - 11.10 [facility] 10*3/L [facility] RBC 4.16 3.93 - 5.25 [facility] 10*6/L [facility] HGB 12.2 11.6 - 15.0 g/dL [facility] HCT 36.5 35.7 - 45.2 % [facility] MCV 87.7 80.6 - 95.5 fL [facility] MCH 29.3 25.9 - 32.8 pg [facility] MCHC 33.4 31.6 - 35.1 g/dL [facility] RDW-SD 41.1 39.0 - 49.9 fL [facility] RDW-CV 12.9 12.0 - 15.5 % [facility] PLT 263 166 - 358 [facility] 10*3/L [facility] MPV 10.7 9.5 - 12.9 fL [facility] NRBC/100 WBC 0.0 0.0 - 10.0 /100 [facility] WBCs [facility] NRBC x10^3 <0.01 10*3/L [facility] GRAN MAT (NEUT) % 66.2 % [facility] IMM GRAN % 0.40 % [facility] LYMPH % 24.2 % [facility] MONO % 6.3 % [facility] EOS % 2.6 % [facility] BASO % 0.3 % [facility] GRAN MAT x10^3(ANC) 4.92 1.88 - 7.09 [facility] 10*3/uL [facility]ITAL [facility] IMM GRAN x10^3 0.03 0.00 - 0.06 [facility] 10*3/uL [facility] LYMPH x10^3 1.80 1.32 - 3.29 [facility] 10*3/uL [facility] MONO x10^3 0.47 0.33 - 0.92 [facility] 10*3/uL [facility] EOS x10^3 0.19 0.03 - 0.39 [facility] 10*3/uL [facility] BASO x10^3 <0.03 0.01 - 0.07 [facility] 10*3/uL [facility] Specimen Blood - VENOUS Performing Organization Address [facility] [address] Phone Number [facility] CLIA: [id number], [address] [place] [address] URINALYSIS (09/10/2018 2:58 PM CDT) APPEARANCE Clear Clear [facility] COLOR Yellow Yellow [facility] PH 6.0 4.8 - 8.0 [facility] SP GRAVITY <=1.005 1.003 - 1.030 [facility] GLU U QUAL Negative Negative [facility] BLOOD Negative Negative [facility] KETONES Negative Negative [facility] PROTEIN Negative Negative [facility] UROBILIN 0.2 mg/dL 0-1.0 mg/dL [facility] BILIRUBIN Negative Negative [facility] NITRITE Negative Negative [facility] LEUK PAKO Negative Negative [facility] RBC/HPF 0 0 - 3 HPF [facility] WBC/HPF 0 0 - 5 HPF [facility] BACTERIA Negative Negative [facility] SQ EPITH 2 HPF [facility] Specimen Urine - URINE, CLEAN CATCH Performing Organization Address [facility] [address]/[facility] Phone Number [facility] CLIA: [id number], [address] [place] [address] COMP. METABOLIC PANEL ([id number]) (09/10/2018 2:58 PM CDT) NA 144 135 - 145 [facility] mmol/L [facility] K 4.4 3.5 - 5.0 [facility] mmol/L [facility] CL 113 (H) 98 - 108 mmol/L [facility] CO2 TOTAL 22 (L) 23 - 31 mmol/L [facility] AGAP 9 2 - 16 [facility] BUN 17 7 - 23 mg/dL [facility] GLUCOSE 98 70 - 110 mg/dL [facility] CREATININE 0.60 0.50 - 1.04 [facility] mg/dL [facility] TOTAL BILI 0.6 0.1 - 1.1 mg/dL [facility] CALCIUM 9.3 8.6 - 10.6 [facility] mg/dL [facility] T PROTEIN 7.1 6.3 - 8.2 g/dL [facility] ALBUMIN 4.0 3.5 - 5.0 g/dL [facility] ALK PHOS 135 (H) 34 - 122 U/L [facility] ALT(SGPT) 74 (H) 9 - 51 U/L [facility] AST(SGOT) 62 (H) 13 - 40 U/L [facility] eGFR Calculation 108.6 mL/min/1.73m2 [facility] ([facility] [place]) eGFR Calculation 131.6 mL/min/1.73m2 [facility] () [facility] Specimen Blood - VENOUS Narrative Performed At Association of Glomerular Filtration Rate (GFR) [facility] LAB[facility]ORY and Staging of Kidney Disease* + [...] tests). Performing Organization Address City/State/Zipcode Phone Number [facility] CLIA: [id number], [address] [place] [address] [facility] [address] documented in this encounter Visit Diagnoses Diagnosis Intractable headache, unspecified chronicity pattern, unspecified headache type - Primary Intractable episodic headache, unspecified headache type documented in this encounter Administered Medications Medication Order MAR Action Action Date Dose Rate Site NaCl 0.9% (NS) IV infusion New Bag 09/10/2018 3:29 PM CDT 1,000 mL 999 mL/ hr 1,000 mL at 999 mL/hr, Intravenous, CONTINUOUS, Starting 09/10/18 at 1545, Until Discontinued, CHELSEY Medication Order MAR Action Action Date Dose Rate Site dexamethasone (DECADRON PHOSPHATE) Given 09/10/2018 3:31 PM CDT 10 mg injection 10 mg 10 mg, IV Push, ONCE, 1 dose, Mon09/10/18 at 1545, STAT diphenhydrAMINE (BENADRYL) injection 25 mg Given 09/10/2018 3:32 PM CDT 25 mg 25 mg, Slow IV Push, ONCE, 1 dose, Mon09/10/18 at 1545, STAT haloperidol lactate (HALDOL) injection 5 mg Given 09/10/2018 3:33 PM CDT 5 mg 5 mg, Intravenous, ONCE, 1 dose, Mon09/10/18 at 1545, STAT magnesium sulfate 4 mEq/mL (50 %) injection Given 09/10/2018 5:45 PM CDT 16 mEq 16 mEq 16 mEq (2 g), IV Piggyback, ONCE, 1 dose, Mon09/10/18 at 1745, STAT documented in this encounter Insurance Payer Benefit Plan / Subscriber ID Effective Dates Phone Address Type Group [facility] xxxxxxxxx 2018-Present Medicaid HEALTH PLAN - HEALTH MANAGED MEDICAID documented as of this encounter"
--- NOTE | 2019-04-15 11:51 | RAD REPORT ---
EXAM DESCRIPTION: CT - Ct Stroke Brain Wo Cont - 04/15/2019 11:39 am CLINICAL HISTORY: TIA COMPARISON: CT-STROKE BRAIN W/O CONTRAST dated 07/01/2012 TECHNIQUE: Axial 5 millimeter thick images of the head were obtained without IV contrast. All CT scans are performed using dose optimization technique as appropriate and may include automated exposure control or mA/KV adjustment according to patient size. FINDINGS: No intracranial hemorrhage, mass, or cerebral edema. No acute infarction identifiable. No cortical edema or sulcal effacement. Linares matter-white matter differentiation is preserved.Ventricles are normal. Intracranial findings are similar to the comparison. Visualized portions of the mastoid air cells, paranasal sinuses, and orbits are unremarkable. Findings telephoned and position 11:48 a.m.. IMPRESSION: No CT evidence of acute intracranial process.
[2019-04-15 11:59] LABS: Absolute Lymphocytes (CBC) 2.3 K/uL (0.7-4.9); Basophils % 0.6 % (0-1.3); MPV 8.8 fL (7.6-11.3); RBC Red Blood Cell Count 4.77 M/uL (3.86-4.86)
[2019-04-15 12:04] LABS: Protime INR 0.87
[2019-04-15] MEDS ORDERED: NA CHLORIDE 0.9% 1,000 ML ONE ×2 (12:09→17:06)
[2019-04-15] MEDS ORDERED: FOLIC ACID 5 MG/ML VIAL ONE (12:11)
[2019-04-15 12:19] LABS: ALT/SGPT 21 U/L (12-78); AST/SGOT 7 U/L (15-37); Albumin 3.6 g/dL (3.4-5.0); Alkaline Phosphatase 165 U/L (45-117); BUN Blood Urea Nitrogen 9 mg/dL (7-18); Bicarbonate 24 mmol/L (21-32); Bilirubin Direct 0.1 mg/dL (0-0.2); Bilirubin Total 0.4 mg/dL (0.2-1.0); Glucose Level 126 mg/dL (74-106); Magnesium 2.2 mg/dL (1.8-2.4); NT PRO-BNP 30 pg/mL (<125); Potassium 3.7 mmol/L (3.5-5.1); Protein, Total 7.7 g/dL (6.4-8.2); Sodium Level 141 mmol/L (136-145); Troponin (Emerg Dept Use Only) < 0.02 ng/mL (0.0-0.045)
--- NOTE | 2019-04-15 12:33 | RAD REPORT ---
EXAM DESCRIPTION: RAD - Chest Single View - 04/15/2019 12:25 pm CLINICAL HISTORY: COUGH Chest pain. COMPARISON: Chest Pa And Lat (2 Views) dated 10/15/2015; CHEST PA AND LAT 2 VIEW dated 05/07/2014; CHES T SINGLE VIEW dated 07/01/2012; CHEST SINGLE VIEW dated 08/23/2010 FINDINGS: Portable technique limits examination quality. The lungs are grossly clear. The heart is normal in size. No displaced fractures. IMPRESSION: No acute intrathoracic process suspected.
--- NOTE | 2019-04-15 13:20 | ER ---
Nurse's Notes [facility] Name: Charmaine Sanches Age: 43 yrs Sex: Female : 1975 Arrival Date: 04/15/2019 Time: 11:31 Bed 2 Private MD: Diagnosis: Essential (primary) hypertension;Weakness;Transient cerebral ischemic attack, unspecified Presentation: 04/14 11:30 Chief complaint: Patient states: L sided weakness that began 1 hour ago. Headache x ss several days. Pt has a history of CVA. Coronavirus screen: The patient has NOT traveled to [place] in the past 14 days. Proceed with normal triage procedures. Ebola Screen: Patient denies exposure to infectious person. Patient denies travel to an Ebola-affected area in the 21 days before illness onset. An acute neurological deficit is present. The patient has been moved to a treatment area. Pre-hospital glucose is not applicable to this patient. Initial Sepsis Screen: Does the patient meet any 2 criteria? No. Patient's initial sepsis screen is negative. Does the patient have a suspected source of infection? No. Patient's initial sepsis screen is negative. Risk Assessment: Do you want to hurt yourself or someone else? Patient reports no desire to harm self or others. 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 - Social history:: Smoking status: Patient denies any tobacco usage or history of. - Family history:: not pertinent. Screenin:52 Abuse screen: Denies threats or abuse. Denies injuries from another. Nutritional ph screening: No deficits noted. Tuberculosis screening: No symptoms or risk factors identified. Fall Risk None identified. Assessment: 11:33 Reassessment: Pt taken to CT via wheelchair by BRITTNEY Coats. ph 11:40 General: Appears in no apparent distress. comfortable, well groomed, Behavior is calm, ph cooperative, appropriate for age. Pain: Complains of pain in top of head and forehead. Neuro: Level of Consciousness is awake, alert, obeys commands, Oriented to person, place, time, situation, Speech is normal, Pupils are PERRLA, Reports headache weakness in left leg and left arm. Cardiovascular: Capillary refill < 3 seconds in bilateral fingers Patient's skin is warm and dry. Respiratory: Airway is patent Respiratory effort is even, unlabored, Respiratory pattern is regular, symmetrical. Derm: Skin is intact, is healthy with good turgor, Skin is pink, warm \\T\\ dry. Musculoskeletal: Circulation, motion, and sensation intact. 11:40 VAN Scoring: Arm Drift: Minor drift Visual Disturbance: No visual disturbance noted. ph 11:40 T-PA (Activase) Screening: Contraindications: Patient reports onset of signs and ph symptoms of stroke greater than 6 hours ago:. 13:00 Patient has been NPO before screening. The patient is alert, and able to follow ph commands. The patient does not exhibit slurred or garbled speech. The patient is not exhibiting difficulty speaking. The patient does not exhibit difficulty understanding words. The patient is able to swallow own secretions with no drooling or need for suction. Patient tolerated one teaspoon of water. No drooling, immediate coughing, gurgling, or clearing of the throat was noted. The patient tolerated 90mL of water. No drooling, immediate coughing, gurgling, or clearing of the throat was noted. The patient passed the bedside swallow screening. Oral medications may be given as ordered. Contact Physician for further diet orders. Provider notified of bedside swallow screening results: Gold Bal MD. 14:35 Reassessment: Patient appears in no apparent distress at this time. Patient and/or ph family updated on plan of care and expected duration. Pain level reassessed. Patient is alert, oriented x 3, equal unlabored respirations, skin warm/dry/pink. Pt reports "tightness" in throat after receiving IV toradol, VSS, w/ Spo2 %100, no respiratory distress noted, ERP notified, see APR. 15:00 Reassessment: Patient appears in no apparent distress at this time. Patient and/or ph family updated on plan of care and expected duration. Pain level reassessed. Patient states feeling better. Patient states symptoms have improved. 16:00 Reassessment: Patient appears in no apparent distress at this time. Patient and/or ph family updated on plan of care and expected duration. Pain level reassessed. Patient is alert, oriented x 3, equal unlabored respirations, skin warm/dry/pink. Vital Signs: 11:30 BP 165 / 104; Pulse 58; Resp 16; Temp 98.1(TE); Pulse Ox 100% on R/A; Weight 67.59 kg; ss Height 5 ft. 1 in. (154.94 cm); Pain 9/10; 13:00 BP 143 / 101; Pulse 59; Resp 16; Pulse Ox 100% on R/A; ph 14:00 BP 200 / 90; Pulse 55; Resp 16; Pulse Ox 99% on R/A; ph 15:19 BP 161 / 93; Pulse 54; Resp 18; Temp 97.8; Pulse Ox 99% on R/A; ph 16:00 BP 143 / 87; Pulse 56; Resp 18; Temp 97.6; Pulse Ox 99% on R/A; ph 11:30 Body Mass Index 28.15 (67.59 kg, 154.94 cm) ss NIH Stroke Scale Scores: 11:40 NIHSS Score: 3 ph ED Course: 11:31 Patient arrived in ED. mr 11:31 Gold Bal MD is Attending Physician. [facility] 11:34 Myriam Dickens, RN is Primary Nurse. ph 11:40 Initial lab(s) drawn, by me, sent to lab. Missed attempt(s): 20 gauge in right ph antecubital area. Bleeding controlled, band aid applied, catheter tip intact. 11:42 CT Stroke Brain w/o Contrast In Process Unspecified. EDMS 11:48 Triage completed. ss 11:49 Arm band placed on right wrist. ss 12:26 XRAY Chest (1 view) In Process Unspecified. EDMS 13:00 Inserted saline lock: 22 gauge in left antecubital area, using aseptic technique. ph 13:16 Yaakov Hood MD is Hospitalizing Provider. bradley 13:25 Brain Wo Cont In Process Unspecified. EDMS 13:48 EKG done, by civil cadd technician. reviewed by Gold Bal MD. at1 15:22 Patient has correct armband on for positive identification. Placed in gown. Bed in low ph position. Call light in reach. Side rails up X2. Pulse ox on. NIBP on. Door closed. Noise minimized. Warm blanket given. 16:00 Patient admitted, IV remains in place. ph 16:40 No provider procedures requiring assistance completed. ph Administered Medications: 13:45 Drug: NS 0.9% 1000 ml Route: IV; Rate: 1 bolus; Site: left antecubital; ph 19:36 Follow up: Response: No adverse reaction; IV Status: Infusion continued upon admission ph 13:45 Drug: foLIC Acid 1 mg Route: IVPB; Site: left antecubital; ph 14:00 Follow up: Response: No adverse reaction; IV Status: Completed infusion ph 14:30 Drug: Aspirin Chewable Tablet 324 mg Route: PO; ph 15:00 Follow up: Response: No adverse reaction ph 14:30 Drug: TORadol 30 mg Route: IVP; Site: left antecubital; ph 14:35 Follow up: Response: Adverse reaction, Physician notified ph 14:33 Drug: Pepcid 20 mg Route: IVP; Site: left antecubital; ph 15:00 Follow up: Response: No adverse reaction ph 14:35 Drug: Benadryl 25 mg Route: IVP; Site: left antecubital; ph 15:00 Follow up: Response: No adverse reaction ph Outcome: 13:19 Decision to Hospitalize by Provider. bradley 16:40 Patient left the ED. ph 16:40 Admitted to Tele accompanied by tech, via wheelchair, with chart. ph 16:40 Condition: stable 16:40 Instructed on the need for admit. NIH Stroke Scale - NIH Stroke Score Date: 04/15/2019 Time: 11:40 Total Score = 3 1a. Level of Consciousness (LOC) - 0(Alert) 1b. Level of Consciousness (LOC) (Year \\T\\ Age) - 0(Both) 1c. LOC Commands (Open \\T\\ Closes Eyes/Medical Records Assistant) - 0(Both) 2. Best Gaze (Lateral Gaze Paresis) - 0(Normal) 3. Visual Field Loss - 0(No visual loss) 4. Facial Palsy - 1(Minor Paralysis) 5a. Left Arm: Motor (10-second hold) - 1(Drift) 5b. Right Arm: Motor (10-second hold) - 0(No drift) 6a. Left Leg: Motor (5-second hold - always test supine) - 1(Drift) 6b. Right Leg: Motor (5-second hold - always test supine) - 0(No drift) 7. Limb Ataxia (finger/nose \\T\\ heel/[place] - test with eyes open) - 0(Absent) 8. Sensory Loss (pinprick arms/legs/face) - 0(Normal) 9. Best Language: Aphasia (description/naming/reading) - 0(No aphasia) 10. Dysarthria (speech clarity - read or repeat words) - 0(Normal) 11. Extinction and Inattention (visual/tactile/auditory/spatial/personal) - 0(No abnormality) Initials: ph Signatures: Dispatcher [employer] EDGold Jenkins MD MD cha Rivera, Mary mr Smirch, Shelby, RN RN Marlene Mckeon, locks inspector EKG Tat1 Myriam Dickens RN RN ph
--- NOTE | 2019-04-15 13:20 | EDPHYS ---
Physician Documentation [facility] Name: Charmaine Sanches Age: 43 yrs Sex: Female : 1975 Arrival Date: 04/15/2019 Time: 11:31 Bed 2 Private MD: AMMIE Physician Gold Bal HPI: 04/14 11:48 This 43 yrs old Female presents to ER via Unassigned with complaints of S/S of bradley Possible Stroke. 11:48 The patient's problem is reported as weakness, in the left upper extremity, in the left bradley lower extremity. Onset: The symptoms/episode began/occurred 2 day(s) ago. Duration: The episode is continuous. Context: symptoms became apparent upon waking. The symptoms are alleviated by nothing. The symptoms are aggravated by nothing. Associated signs and symptoms: The patient has no apparent associated signs or symptoms. Severity of symptoms: At their worst the symptoms were. The patient has not experienced similar symptoms in the past. 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 - Social history:: Smoking status: Patient denies any tobacco usage or history of. - Family history:: not pertinent. ROS: 11:48 Constitutional: Negative for fever, chills, and weight loss, Eyes: Negative for injury, bradley pain, redness, and discharge, ENT: Negative for injury, pain, and discharge, Neck: Negative for injury, pain, and swelling, Cardiovascular: Negative for chest pain, palpitations, and edema, Respiratory: Negative for shortness of breath, cough, wheezing, and pleuritic chest pain, Abdomen/GI: Negative for abdominal pain, nausea, vomiting, diarrhea, and constipation, Back: Negative for injury and pain, : Negative for injury, bleeding, discharge, and swelling, MS/Extremity: Negative for injury and deformity, Skin: Negative for injury, rash, and discoloration, Psych: Negative for depression, anxiety, suicide ideation, homicidal ideation, and hallucinations, Allergy/Immunology: Negative for hives, rash, and allergies, Endocrine: Negative for neck swelling, polydipsia, polyuria, polyphagia, and marked weight changes, Hematologic/Lymphatic: Negative for swollen nodes, abnormal bleeding, and unusual bruising. 11:48 Neuro: Positive for headache, of the left arm and left leg. Exam: 11:48 Radiologist reports: neg per deshaun huerta 11:48 Constitutional: This is a well developed, well nourished patient who is awake, alert, and in no acute distress. Head/Face: Normocephalic, atraumatic. Eyes: Pupils equal round and reactive to light, extra-ocular motions intact. Lids and lashes normal. Conjunctiva and sclera are non-icteric and not injected. Cornea within normal limits. Periorbital areas with no swelling, redness, or edema. ENT: Nares patent. No nasal discharge, no septal abnormalities noted. Tympanic membranes are normal and external auditory canals are clear. Oropharynx with no redness, swelling, or masses, exudates, or evidence of obstruction, uvula midline. Mucous membranes moist. Neck: Trachea midline, no thyromegaly or masses palpated, and no cervical lymphadenopathy. Supple, full range of motion without nuchal rigidity, or vertebral point tenderness. No Meningismus. Chest/axilla: Normal chest wall appearance and motion. Nontender with no deformity. No lesions are appreciated. Cardiovascular: Regular rate and rhythm with a normal S1 and S2. No gallops, murmurs, or rubs. Normal PMI, no JVD. No pulse deficits. Respiratory: Lungs have equal breath sounds bilaterally, clear to auscultation and percussion. No rales, rhonchi or wheezes noted. No increased work of breathing, no retractions or nasal flaring. Abdomen/GI: Soft, non-tender, with normal bowel sounds. No distension or tympany. No guarding or rebound. No evidence of tenderness throughout. Back: No spinal tenderness. No costovertebral tenderness. Full range of motion. Skin: Warm, dry with normal turgor. Normal color with no rashes, no lesions, and no evidence of cellulitis. MS/ Extremity: Pulses equal, no cyanosis. Neurovascular intact. Full, normal range of motion. Neuro: Awake and alert, GCS 15, oriented to person, place, time, and situation. Cranial nerves II-XII grossly intact. Motor strength 5/5 in all extremities. Sensory grossly intact. Cerebellar exam normal. Normal gait. Psych: Awake, alert, with orientation to person, place and time. Behavior, mood, and affect are within normal limits. Vital Signs: 11:30 BP 165 / 104; Pulse 58; Resp 16; Temp 98.1(TE); Pulse Ox 100% on R/A; Weight 67.59 kg; ss Height 5 ft. 1 in. (154.94 cm); Pain 9/10; 13:00 BP 143 / 101; Pulse 59; Resp 16; Pulse Ox 100% on R/A; ph 14:00 BP 200 / 90; Pulse 55; Resp 16; Pulse Ox 99% on R/A; ph 15:19 BP 161 / 93; Pulse 54; Resp 18; Temp 97.8; Pulse Ox 99% on R/A; ph 16:00 BP 143 / 87; Pulse 56; Resp 18; Temp 97.6; Pulse Ox 99% on R/A; ph 11:30 Body Mass Index 28.15 (67.59 kg, 154.94 cm) NIH Stroke Scale Scores: 11:40 NIHSS Score: 3 ph MDM: 11:31 Patient medically screened. [facility] 11:50 Data reviewed: vital signs, nurses notes, lab test result(s), EKG, radiologic studies, [facility] CT scan, plain films. 04/14 11:33 Order name: Basic Metabolic Panel; Complete Time: 13:15 [facility] 04/14 11:33 Order name: CBC with Diff; Complete Time: 13:15 [facility] 04/14 11:33 Order name: LFT's; Complete Time: 13:15 [facility] 04/14 11:33 Order name: Magnesium; Complete Time: 13:15 [facility] 04/14 11:33 Order name: NT PRO-BNP; Complete Time: 13:15 [facility] 04/14 11:33 Order name: PT-INR; Complete Time: 13:15 [facility] 04/14 11:33 Order name: Troponin (emerg Dept Use Only); Complete Time: 13:15 [facility] 04/14 11:33 Order name: XRAY Chest (1 view); Complete Time: 13:15 [facility] 04/14 11:33 Order name: CT Stroke Brain w/o Contrast; Complete Time: 13:15 [facility] 04/14 11:33 Order name: UDS [facility] 04/14 15:13 Order name: Urine Dipstick--Ancillary (enter results) 04/14 15:13 Order name: Urine --Ancillary (enter results) 04/14 15:27 Order name: Urine --Ancillary [facility] 04/14 15:27 Order name: Urine Dipstick-Ancillary [facility] 04/14 11:33 Order name: EKG; Complete Time: 11:34 [facility] 04/14 11:33 Order name: Cardiac monitoring; Complete Time: 14:18 [facility] 04/14 11:33 Order name: EKG - Nurse/Tech; Complete Time: 14:18 [facility] 04/14 11:33 Order name: IV Saline Lock; Complete Time: 14:18 [facility] 04/14 11:33 Order name: Labs collected and sent; Complete Time: 14:18 [facility] 04/14 11:33 Order name: O2 Per Protocol; Complete Time: 14:18 [facility] 04/14 11:33 Order name: O2 Sat Monitoring; Complete Time: 14:18 [facility] 04/14 11:33 Order name: Urine Test (obtain specimen); Complete Time: 15:13 [facility] 04/14 12:36 Order name: Brain Wo Cont [facility] 04/14 11:33 Order name: Urine Dipstick-Ancillary (obtain specimen); Complete Time: 15:13 [facility] Administered Medications: 13:45 Drug: NS 0.9% 1000 ml Route: IV; Rate: 1 bolus; Site: left antecubital; ph 19:36 Follow up: Response: No adverse reaction; IV Status: Infusion continued upon admission ph 13:45 Drug: foLIC Acid 1 mg Route: IVPB; Site: left antecubital; ph 14:00 Follow up: Response: No adverse reaction; IV Status: Completed infusion ph 14:30 Drug: Aspirin Chewable Tablet 324 mg Route: PO; ph 15:00 Follow up: Response: No adverse reaction ph 14:30 Drug: TORadol 30 mg Route: IVP; Site: left antecubital; ph 14:35 Follow up: Response: Adverse reaction, Physician notified ph 14:33 Drug: Pepcid 20 mg Route: IVP; Site: left antecubital; ph 15:00 Follow up: Response: No adverse reaction ph 14:35 Drug: Benadryl 25 mg Route: IVP; Site: left antecubital; ph 15:00 Follow up: Response: No adverse reaction ph Disposition: 04/15/19 13:19 Hospitalization ordered by Yaakov Hood for Inpatient Admission. Preliminary diagnosis are Essential (primary) hypertension, Weakness, Transient cerebral ischemic attack, unspecified. - Bed requested for Telemetry/MedSurg (Inpatient). - Status is Inpatient Admission. ph - Condition is Fair. - Problem is new. - Symptoms have improved. NIH Stroke Scale - NIH Stroke Score Date: 04/15/2019 Time: 11:40 Total Score = 3 1a. Level of Consciousness (LOC) - 0(Alert) 1b. Level of Consciousness (LOC) (Year \T\ Age) - 0(Both) 1c. LOC Commands (Open \T\ Closes Eyes/Health Education Assistant) - 0(Both) 2. Best Gaze (Lateral Gaze Paresis) - 0(Normal) 3. Visual Field Loss - 0(No visual loss) 4. Facial Palsy - 1(Minor Paralysis) 5a. Left Arm: Motor (10-second hold) - 1(Drift) 5b. Right Arm: Motor (10-second hold) - 0(No drift) 6a. Left Leg: Motor (5-second hold - always test supine) - 1(Drift) 6b. Right Leg: Motor (5-second hold - always test supine) - 0(No drift) 7. Limb Ataxia (finger/nose \T\ heel/[place] - test with eyes open) - 0(Absent) 8. Sensory Loss (pinprick arms/legs/face) - 0(Normal) 9. Best Language: Aphasia (description/naming/reading) - 0(No aphasia) 10. Dysarthria (speech clarity - read or repeat words) - 0(Normal) 11. Extinction and Inattention (visual/tactile/auditory/spatial/personal) - 0(No abnormality) Initials: ph Signatures: Dispatcher [employer] EDRosy Taylor Corey, MD MD cha Smirch, Shelby, RN RN Myriam Mcfarland RN RN ph Corrections: (The following items were deleted from the chart) 12:36 11:34 MR STROKE PROTOCOL+MRI.RAD.BRZ ordered. EDMS EDMS 13:27 13:19 Hospitalization Ordered by Yaakov Hood MD for Inpatient Admission. bradley Preliminary diagnosis is Essential (primary) hypertension; Weakness. Bed requested for Telemetry/MedSurg (Inpatient). Status is Inpatient Admission. Condition is Fair. Problem is new. Symptoms have improved. bradley 15:06 13:27 04/15/2019 13:19 Hospitalization Ordered by Yaakov Hood MD for Inpatient bd Admission. Preliminary diagnosis is Essential (primary) hypertension; Weakness; Transient cerebral ischemic attack, unspecified. Bed requested for Telemetry/MedSurg (Inpatient). Status is Inpatient Admission. Condition is Fair. Problem is new. Symptoms have improved. bradley 15:31 15:06 04/15/2019 13:19 Hospitalization Ordered by Yaakov Hood MD for Inpatient bd Admission. Preliminary diagnosis is Essential (primary) hypertension; Weakness; Transient cerebral ischemic attack, unspecified. Bed requested for Telemetry/MedSurg (Inpatient). Status is Inpatient Admission. Condition is Fair. Problem is new. Symptoms have improved. bd 16:40 15:31 04/15/2019 13:19 Hospitalization Ordered by Yaakov Hood MD for Inpatient ph Admission. Preliminary diagnosis is Essential (primary) hypertension; Weakness; Transient cerebral ischemic attack, unspecified. Bed requested for Telemetry/MedSurg (Inpatient). Status is Inpatient Admission. Condition is Fair. Problem is new. Symptoms have improved. bd
--- NOTE | 2019-04-15 13:28 | RAD REPORT ---
EXAM DESCRIPTION: MRI - Brain Wo Cont - 04/15/2019 1:21 pm CLINICAL HISTORY: TIA Headache, drowsiness, CVA symptomology. COMPARISON: Ct Stroke Brain Wo Cont dated 04/15/2019 TECHNIQUE: Multi-sequence, multiplanar MR imaging of the brain was performed without contrast. FINDINGS: No intracranial hemorrhage, hydrocephalus or extra-axial fluid collections.Small area of g liosis is seen in the right posterior parietal lobe. No edema or shift of midline structures. No find ings to suspect brain mass. DWI is negative for acute CVA. Midline structures are normally formed. Mastoid air cells and paranasal sinuses are clear. IMPRESSION: Negative for acute CVA or other acute intracranial process.
[2019-04-15] MEDS ORDERED: ASPIRIN 81 MG CHEWABLE TABLET ONE (14:34)
[2019-04-15] MEDS ORDERED: KETOROLAC 30 MG/ML INJ ONE (14:34)
[2019-04-15] MEDS ORDERED: DIPHENHYDRAMINE 50 MG/ML VIAL ONE (14:41)
[2019-04-15] MEDS ORDERED: FAMOTIDINE 20 MG/2 ML VIAL IV ONE (14:41)
[2019-04-15] MEDS ORDERED: METHYLPREDNISOLONE 125 MG INJ ONE (14:41)
[2019-04-15 15:26] LABS: Urine Blood TRACE (NEG); Urine Glucose NEGATIVE (NEG); Urine Protein NEGATIVE (NEG); Urine Specific Gravity 1.015 (1.005-1.030); Urine pH 6.5 (5.0-7.0)
--- NOTE | 2019-04-15 15:32 | EKG ---
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
[2019-04-15 15:49] LABS: Barbiturates NEGATIVE (NEGATIVE); Benzodiazepines POSITIVE (NEGATIVE); Cocaine POSITIVE (NEGATIVE); METHAMPHETAM NEGATIVE (NEGATIVE); Methadone NEGATIVE (NEGATIVE); Opiates NEGATIVE (NEGATIVE); Phencyclidine NEGATIVE (NEGATIVE); THC Cannibis NEGATIVE (NEGATIVE)
[2019-04-15] MEDS ORDERED: ONDANSETRON 4 MG/2 ML VIAL IV PRN (16:46)
[2019-04-15] MEDS: ENOXAPARIN 40 MG/0.4 ML SQ SCH (17:42)
[2019-04-15] MEDS: NA CHLORIDE 0.9% 1,000 ML IV SCH (17:42)
[2019-04-15] MEDS ORDERED: D50W 25 GM/50 ML SYRINGE/VIAL IV PRN (17:52)
[2019-04-15] MEDS ORDERED: GLUCAGON 1 MG/VIAL IM PRN (17:52)
[2019-04-15 18:17] VITALS: BMI 28.1
--- NOTE | 2019-04-15 19:05 | RAD REPORT ---
EXAM DESCRIPTION: US - CP - 04/15/2019 6:42 pm CLINICAL HISTORY: CVA COMPARISON: Brain Wo Cont dated 04/15/2019 TECHNIQUE: Real-time sonographic evaluation of bilateral carotid and vertebral systems was performed . Linares scale and Doppler interrogation were performed with waveform tracing bilaterally. FINDINGS: Normal high resistance waveforms are noted in both external carotid arteries. The common c arotid arteries and internal carotid arteries show normal low resistance waveforms. No significant plaque formation is seen. Peak systolic and end diastolic velocity values and the ICA/ CCA ratios are in the non-hemodynamically significant range. Antegrade flow seen in both vertebral arteries. Velocity values and ratios were recorded and are retained in the patient's imaging records. IMPRESSION: No significant atherosclerotic changes noted. No evidence of a hemodynamically significant stenosis.
[2019-04-15] MEDS: INSULIN -REGULAR HUMAN 50 UNIT/0.5 ML ML SQ SCH (19:59)
[2019-04-15] MEDS ORDERED: ATORVASTATIN 40 MG TAB PO SCH (21:00)
[2019-04-15] MEDS ORDERED: TOPIRAMATE 25 MG TAB PO SCH (21:00)
[2019-04-15] MEDS: ACETAMINOPHEN 500 MG TAB PO PRN (22:34)
--- NOTE | 2019-04-16 01:27 | HP ---
Date of Admission: 04/15/2019 Chief Complaint: Left-sided weakness. Primary Care Physician: Out of town in [place]. History Of Present Illness: Patient is a 43-year-old female with past medical history of diabetes meq-jxevase-unjjeiusm, anxiety, hypertension, fibromyalgia, PTSD, neuropathy, diverticulosis, history of TIA in August 2018, who is a left- handed female, comes in with headache that woke her up. Patient also noticed left-sided weakness. Patient also felt dizzy. The patient's headache is mainly on the right side radiating over to the left, similar to her previous TIA type symptoms. Patient denies any trauma, fall. No fever, chills, ill contacts. No nausea or vomiting. Patient came into the ER for further evaluation as patient will cope with her symptoms. She is not a candidate for tPA. Her workup revealed negative head CT scan. [place] [address]. Her UDS was positive for benzodiazepines and cocaine. MRI of the brain was also done, was negative for acute cerebrovascular accident or other acute intracranial process. Small area of gliosis is seen in the right posterior parietal lobe. Patient was then referred for admission. When seen in the ER, she was awake, alert, and oriented x3, in some mild distress due to headache. Patient was then referred for admission. Past Medical History: Diabetes mellitus type 2, ikf-uztdayo-slahorxmz, anxiety , hypertension, fibromyalgia, PTSD, neuropathy, diverticulosis, history of TIA in August 2018. Surgical History: Hysterectomy, cholecystectomy, and thrombectomy for a brain clot at [facility] in August 2018, on the right side. Allergies: TO CIPRO, TORADOL, SULFAMETHOXAZOLE, TRAMADOL, AND TRIMETHOPRIM. Social History: Patient smokes about 1-2 packs per month, drinks alcohol occasionally, maybe once or twice a month. Denies any illicit drug use, however UDS is positive for cocaine. Family History: The patient denies any family history of stroke. Review of Systems: Ten-point system reviewed, negative except as per HPI. Physical Examination: Vital Signs: Temperature 98.1, heart rate 58, blood pressure 165/104, respirations 16, O2 100% on room air. General: Awake, alert, and oriented x3, in some mild distress due to headache. Ill-appearing female, in some mild distress. HEENT: Normocephalic, atraumatic. PERRLA. EOMI. Moist mucous membranes. Oropharynx is clear. Normal dentition. Conjunctivae are anicteric. Neck: Supple. No JVD. Trachea midline. CV: S1, S2. Regular rate and rhythm. Peripheral pulses present. Gastrointestinal: Abdomen is soft, nontender, nondistended. Positive bowel sounds. Respiratory: Clear to auscultation bilaterally. No wheezing or stridor. Extremities: No clubbing, cyanosis, or edema. Neuro: Cranial nerves 2 through 12 intact grossly. Patient has 5/5 strength in the right upper and lower extremities, 4/5 strength in the left upper and lower extremities. Patient has decreased sensation to light touch due to neuropathy in the lower extremities. Speech is normal. No facial asymmetry. Skin: No rashes. Normal skin turgor. Psych: Mood is okay. Affect is full. Insight and judgment are good. Laboratory Data: UDS positive for benzodiazepines and cocaine. UA shows negative nitrite, negative leukocyte esterase, trace blood. Urine test is negative. Sodium 141, potassium 3.7, chloride 111, CO2 24, BUN 9, creatinine 0.63, glucose 126, calcium 8.9, magnesium 2.2, alkaline phosphatase 165, troponin less than 0.02. INR 0.87. WBC 12.3, H and H 13.8 and 42, platelets 312, neutrophils 72%. Imaging Studies: Chest x-ray personally reviewed shows no acute intrathoracic process. MRI of the brain without contrast shows negative for acute cerebrovascular accident or other acute intracranial process, does show small area of gliosis seen in the right posterior parietal lobe. CT scan of the head shows no evidence of acute intracranial process. Assessment: A 43-year-old female with, 1. Left-sided weakness, cerebrovascular accident has been ruled out. Patient has history of previous transient ischemic attack and thrombectomy procedure at [facility] in August 2018. We will obtain previous records. We will continue on stroke guidelines with aspirin and statin. Check lipid panel. We will obtain carotid artery ultrasound and an echocardiogram. Dr. Arango, Neurology, has been consulted. Patient is not a candidate for tPA due to waking up with her symptoms. 2. Headache, unclear etiology, may be related to migraine headache. We will start on Topamax at night. 3. Diabetes mellitus type 2, jdp-eexrzlm-bjgqdybwo with hyperglycemia. We will start on sliding scale insulin. Monitor blood glucose level. 4. Diabetic neuropathy. 5. Diverticulosis. 6. Post-traumatic stress disorder. We will resume medications as appropriate. 7. Generalized anxiety disorder, patient is on Valium. 8. Cocaine abuse, UDS is positive. The patient had denied any illicit drug use. We will clarify with the patient. 9. Essential hypertension, not well controlled. We will allow permissive hypertension due to acute symptoms. 10. Fibromyalgia. Plan: Admit patient to Med-Surg, place as observation. ADDENDUM: Patient now admits to using cocaine. Has been using on and off for past several years. Previous UDS also positive for cocaine. She does go to rehab. Symptoms may be related to vasospasms from cocaine. /JIGNA Voice ID: [id number] MTDD
[2019-04-16] MEDS: ACETAMINOPHEN 500 MG TAB PO PRN ×2 (04:32→08:46)
[2019-04-16 05:25] LABS: Absolute Lymphocytes (CBC) 2.6 K/uL (0.7-4.9); Basophils % 0.5 % (0-1.3); Hematocrit 38.1 % (36.0-45.0); Lymphocytes % 25.6 % (15.3-44.8); MPV 8.8 fL (7.6-11.3); RBC Red Blood Cell Count 4.27 M/uL (3.86-4.86)
[2019-04-16 05:43] LABS: Bilirubin Total 0.3 mg/dL (0.2-1.0); Potassium 3.8 mmol/L (3.5-5.1); Protein, Total 6.3 g/dL (6.4-8.2)
[2019-04-16] MEDS: NA CHLORIDE 0.9% 1,000 ML IV SCH (06:18)
[2019-04-16] MEDS: INSULIN -REGULAR HUMAN 50 UNIT/0.5 ML ML SQ SCH ×2 (07:30→11:30)
[2019-04-16] MEDS: ENOXAPARIN 40 MG/0.4 ML SQ SCH (08:47)
[2019-04-16] MEDS ORDERED: PREGABALIN 75 MG CAP PO SCH (09:00)
[2019-04-16] MEDS ORDERED: POTASSIUM CL SA 10 MEQ TAB PO ONE (09:00)
[2019-04-16] MEDS ORDERED: ASPIRIN EC 81 MG TAB PO SCH (09:00)
[2019-04-16 11:22] VITALS: O2SAT 100
[2019-04-16] MEDS ORDERED: HYDROCODONE/APAP 7.5/325 MG TAB PO PRN (11:29)
[2019-04-16 12:18] VITALS: BP 124/72; TEMP 98.7
[2019-04-16] MEDS ORDERED: HYOSCYAMINE SULF 0.125 MG TAB SL PRN (12:47)
[2019-04-16] MEDS ORDERED: GABAPENTIN 300 MG CAP PO SCH (14:00)
[2019-04-16] MEDS ORDERED: PANTOPRAZOLE 40MG TABLET PO SCH (21:00)
[2019-04-16] MEDS ORDERED: DIAZEPAM 5 MG TABLET PO SCH (21:00)
--- NOTE | 2019-04-16 22:00 | DS ---
Date of Discharge: 04/16/2019 Consultants: Dr. Arango with Neurology. Discharge Diagnoses: 1. Left-sided weakness, cerebrovascular accident ruled out, likely due to vasospasms from cocaine use. 2. Complicated migraine, improving. 3. Diabetes mellitus type 2 efr-exvmzsn-mqsvqrgcu with hyperglycemia. 4. Diabetic neuropathy. 5. Diverticulosis. 6. Post-traumatic stress disorder. 7. Generalized anxiety disorder on benzodiazepines. 8. Cocaine abuse, counseled. 9. Essential hypertension, stable. 10. Fibromyalgia. Hospital Course: Patient is a 43-year-old female with past medical history of prior TIA, anxiety, fibromyalgia, diabetes, hypertension, comes in with left- sided weakness. Patient also admits to cocaine use on and off. Patient also reports headache. She was admitted to the hospital to rule out recurrence of her TIA or cerebrovascular accident. Her workup was negative including MRI of the brain, carotid artery ultrasound. The patient was counseled regarding her cocaine use. She understands that this may cause bleeding or even vasospasm to the point of infarction. She says that she has gone to rehab before and is planning on continuing rehab for her cocaine use. Dr. Arango with Neurology was also consulted. He recommended Topamax for her headaches. Patient's symptoms did improve, weakness on the left side improved as well. Her lipid panel showed elevated triglycerides. She was counseled regarding her diet. Otherwise, white blood cell count improved. Her electrolytes remained stable. Her urine was negative. Patient was then cleared for discharge and was sent home in a stable condition. Activity: As tolerated. No driving or operating heavy machinery while on benzodiazepines. Followup: With primary care physician in 2-3 days. Follow up with neurologist , Dr. Arango in 2 weeks. Return to ER for worsening condition. Diet: Heart healthy, diabetic diet. Medications: As per medication reconciliation list. Physical Examination: General: Awake, alert, and oriented x3. No acute distress. CV: S1, S2. Respiratory: Moving air well bilaterally. Abdomen: Abdomen is soft, nontender, nondistended. Positive bowel sounds. Extremities: No clubbing, cyanosis, or edema. Neurologic: The patient has 4+/5 weakness on the left upper extremity. Bilateral lower extremities and right upper extremity are 5/5 strength. Speech is normal. No facial asymmetry. SA/MODL Voice ID: [id number] Report ID: [id number]
--- NOTE | 2019-04-16 23:02 | CON ---
Reason For Consultation: Consultation called because of left-sided weakness with possible stroke. History Of Present Illness: Ms. Sanches is a 43-year-old patient with long history of migraines an d complicated by left-sided weakness of leg and arm. She said she has had numerous episodes of sever e headaches accompanied by left-sided weakness for which she has had multiple brain imaging, which louise ve always turned up negative in terms of acute ischemic or hemorrhagic stroke. She was in the past o n Topamax for migraine prophylaxis and was doing well, but then did not have insurance to continue me dications and she stopped about a year ago. Despite stopping, she did fairly well and eventually hea daches returned and now has had severe headache associated with left leg and arm weakness and numbnes s along with some numbness in the face. She did have some pain radiating on the right side of her he ad associated with light sound scalp sensitivity along with nausea. At [facility], head CT scan was unremarkable, and her brain MRI stroke protocol also showed no acute ischemic or hemorrhagic change. There was, however, small area of gliosis in the right posterior parietal lobe suggestive o f a possible chronic stroke in that area. Carotid artery ultrasound showed no evidence of hemodynami ernestina significant stenosis and her electrocardiogram showed sinus bradycardia, voltage criteria for l eft ventricular hypertrophy was identified. Her blood work did show essentially normal complete bloo d count with differential, coagulation panel was also normal. Her electrolyte panel essentially unre markable, except slightly elevated chloride at 113. Her glucose ranged from 126 to 148. Cholesterol LDL is slightly elevated at 89, HDL slightly low at 34, total cholesterol 167. Liver function studi es essentially unremarkable. She did have slightly elevated alkaline phosphatase of 133. Her toxici ty screen was positive for cocaine and benzodiazepines, which she was positive for in 2010 as well. Past Medical History: 1.History of cocaine use in the past. 2.Diabetes mellitus. 3.Anxiety. 4.Hypertension. 5.Fibromyalgia. 6.PTSD. 7.Peripheral neuropathy. 8.Diverticulosis. 9.Complicated migraine. Past Surgical History: Hysterectomy, cholecystectomy, thrombectomy at [facility], and separate clot in the brain. Allergies: CIPRO, TORADOL, SULFAMETHOXAZOLE, TRAMADOL, AND TRIMETHOPRIM. Social History: Smokes 1-1/2 packs a day. Occasional alcohol use and uses cocaine. Family History: No stroke. Review of Systems: Denies any recent fevers or chills, myalgias, arthralgias, rash, headache, weight change, or psychiat blayne complaints or other issues. Physical Examination: Vital Signs: Blood pressure 124/72, pulse 67, respiratory rate 20, temperature 98.7, pulse ox satura tion 98%. General: Ms. Sanches is resting in bed. She is in no acute distress. HEENT: She is normocephalic, atraumatic. Sclerae anicteric. Oropharynx is moist and pink. Neck: Supple. Chest: Clear. Heart: Regular. Extremities: No clubbing, cyanosis, or edema. Neurological: On the left upper and lower extremities, she is at least 4/5 proximally and distally a nd on the right side 5/5. Sensory exam, decreased to light touch, temperature, and pinprick of the l eft face, arm, and leg compared to the right side. Coordination, intact in upper and lower extremiti es. Reflexes, symmetric in upper and lower extremities. Gait, some tendency to drift over to the le ft. Assessment: Ms. Sanches is a 43-year-old patient with complicated migraine and this is all further complicated by regular use of cocaine. She did not have acute ischemic or hemorrhagic stroke. 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 Plan: 1.She was strongly advised to stop using cocaine. 2.Start Topamax 25 mg at night. Also, Lipitor 40 mg at bedtime, aspirin 81 mg daily. She is on Lyr ica 75 mg daily along with Effexor 75 mg daily. 3.After discharge, she may follow up in Dr. Arango's clinic in 1 month. CONSTANTINE/JIGNA Voice ID: [id number] Report ID: [id number]
[2019-04-17] MEDS ORDERED: CITALOPRAM 10 MG TABLET PO SCH (09:00)
[2019-04-17] MEDS ORDERED: VENLAFAXINE HCL XR 75 MG CAP PO SCH (09:00)
== END 2019-04-16 14:26 | disposition home or self-care (01) ==
LOC: ER 11:26 → ERHOLD 13:57 → 2ND 15:42
PROVIDERS: ADMIT Family Medicine; ATTEND Family Medicine
DX: G81.94 Hemiplegia, unspecified affecting left nondominant side (principal); I10 Essential (primary) hypertension; M79.7 Fibromyalgia; F43.10 Post-traumatic stress disorder, unspecified; G62.9 Polyneuropathy, unspecified; K57.90 Diverticulosis of intestine, part unspecified, without perforation or abscess without bleeding; F41.1 Generalized anxiety disorder; G43.109 Migraine with aura, not intractable, without status migrainosus; E11.65 Type 2 diabetes mellitus with hyperglycemia; E11.40 Type 2 diabetes mellitus with diabetic neuropathy, unspecified; F14.10 Cocaine abuse, uncomplicated
CPT/HCPCS: 36415; 70450; 70551; 71045; 80048; 80053; 80061; 80076; 80307; 81003; 81025; 82947; 83735; 83880; 84484; 85025; 85610; 93005; 93880; 94760; 96361; 96374; 96375; 97112; 97161; 99285; G0378; J1200; J1650; J2405; J2930; J7030

== ENCOUNTER 2019-04-24 | Emergency (ER) | payer MEDICAID, SELFPAY ==
--- OUTSIDE RECORDS SUMMARY | 2019-04-24 17:17 | XMS REPORT ---
[...] I10 Active Assessment Fibromyalgia M79.7 Active Assessment [facility] prescription Z79.899 Active benzodiazepine use Problem Essential (primary) hypertension I10 Active Problem Depression with anxiety F41.8 Active Problem Fibromyalgia M79.7 Active Assessment Depression with anxiety F41.8 Active Problem Cocaine abuse F14.10 Active Problem Irritable bowel syndrome, K58.9 Active unspecified type Medications Medication Code Code Instructions Start End Status Dosage System Date Date Acetaminophen-C [facility] 95964109660 300-30 MG Oral Active (Schedule odeine #3 III Drug) Gabapentin [facility] 96395795877 800 MG Oral tid Active as directed Alprazolam ND 89618661230 2 MG Oral Twice Active (Schedule a day IV Drug) Hyoscyamine [facility] 04968688372 0.125 MG Active not defined Sulfate Sublingual Duloxetine HCl [facility] 41976406541 30 MG Oral Active not defined Results No Known Results Summary Purpose eClinicalWorks Submission
--- OUTSIDE RECORDS SUMMARY | 2019-04-24 17:19 | XMS REPORT ---
:1975 [facility] Address [address] [place] [place] [address] Care Team Providers Name Role Phone Unavailable [...] Comments Text Results Atomic Results Result Comments [facility] 2018-07-13 RUN 15:57:00 DATE: 07/13/18 [facility] PAGE 1 RUN TIME: 1557 Specimen Inquiry RUN USER: INTERFACE KRISTIN ENT: KRISTOPHER JENSEN LOC: [place] U #: [id number] AGE/SX: 43/F ROOM: RE07/11/18[facility] DR: Laci Quiroz MD : 73 BED: DIS: STATUS: [facility] TLOC: SPEC #: [id number] RECD: 07/11/18 STATUS: ZOYA ZOILA #: [id number] NISH: 07/11/[address] [facility] [address]: Laci Quiroz MD ENTERED: 07/11/18 [...] FOR MALIGNANCY MULTIPLE LEVELS EXAMINED RRB/keyur D ([phone], [phone] MACROSCOPIC Specimen (1) is received in formalin, labeled with the patient's name, identified as "duodenum", and consists of pink biopsy tissue measuring 0.3 cm in aggregate, submitted as (1). Specimen (2) is received in formalin, labeled with the patient's name, identified as "pink-foy", and consists of foy biopsy tissue measuring 0.3 cm in CONTINUED ON NEXT PAGE RUN DATE: 07/13/18 [facility] PAGE 2 RUN TIME: 1557 Specimen Inquiry RUN USER: INTERFACE SPEC #: [id number] PATIENT: KRISTOPHER JENSEN # [id number] (Continued) ------- MACROSCOPIC (Continued) aggregate, submitted as (2) for H E and giemsa stains. Specimen (3) is received in formalin, labeled with the patient's name, identified as "sigmoid polyp", and consists of pink-foy biopsy tissue measuring 0.25 cm in aggregate, submitted as (3). GROSS PERFORMED AT [facility] [address] [place] [address] (p)[phone] MICROSCOPIC All of the stains, including any controls performed , stain appropriately. MICROSCOPIC PERFORMED AT [facility] [address] [place] [address] (p)[phone] PERFORM[address] SITE Diagnosis performed at: [facility] [address] [place] [address] -------- Signed SIGNATURE ON FILE Fernando Marcial [...] (test code=CA) 9.8 mg/dL 8.5-10.1 BASIC METABOLIC [id number] 12:08:00 Test Item Value Reference Range Comments [...]
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
== END 2019-04-24 18:27 | disposition left against medical advice (07) ==
CPT/HCPCS: 99281

== ENCOUNTER 2022-08-05 17:40 | Emergency (ER) | payer SELFPAY ==
--- OUTSIDE RECORDS SUMMARY | 2022-08-05 17:46 | XMS REPORT | Continuity of Care Document ---
:[address] [facility] [place], [place] t Address [address] [place] [address] Care Team Providers Name Role Phone JED DU Primary Care Physician Unavailable HOLLI ZARATE Attending Clinician Unavailable Holli Zarate DO Attending Clinician SAYDA RAMÍREZ Attending Clinician Unavailable Sayda Ramírez MD Attending Clinician FATEMEH FELIZ Attending Clinician Unavailable Fatemeh Kelley Attending Clinician Doctor Unassigned, [place] Attending Clinician Unavailable ABIODUN SOLORZANO Attending Clinician Unavailable Abiodun Solorzano DO Attending Clinician UNKNOWN, ATTENDING Attending Clinician Unavailable MICHAEL HOLLEY Attending Clinician Unavailable Michael Leach Attending Clinician Brando MCPHERSON Attending Clinician Unavailable Brando Duke Attending Clinician CAIT AUGUSTINE Attending Clinician Unavailable JEANNETTE BERNAL Attending Clinician Unavailable HOLLI ZARATE Admitting Clinician Unavailable SAYDA RAMÍREZ Admitting Clinician Unavailable FATEMEH FELIZ Admitting Clinician Unavailable ABIODUN SOLORZANO Admitting Clinician Unavailable JEANNETTE BERNAL Admitting Clinician Unavailable Payers Payer Name Policy Type Policy Number Effective Date Expiration Date Jose M PETTIT [id number] 2018 HEALTH 00:00:00 MEDICAID SSI PENDING 2021 PENDING 00:00:00 Problems Condition Condition Condition Status Onset Resolution Last Treating Co mments Source Name Details Category Date Date Treatment Clinician Date Syncope Syncope Disease Active Univers and and 6-16 ity of collapse collapse 00:00: [place] [facility] Headache Headache Disease Active Unive rs 3-26 ity of 00:00: [place] [facility] Vision Vision Disease Active Univers loss loss 3-26 ity of 00:00: [place] [facility] TIA TIA Disease Active Univers (transient (transient 3-25 it y of ischemic ischemic 00:00: [place] attack) attack) 00 Medical Branch Obesity Obesity Disease Active Univers (BMI (BMI 7-26 ity of 30-39.9) 30-39.9) 00:00: [place] [facility] Stroke Stroke Disease Active 2018- Univers 7-25 ity of 00:00: [place] [facility] Pancreatit Pancreatit Disease Active U nivers is is 6-25 ity of 00:00: [place] [facility] Sphincter Sphincter Disease Active Uni vers of Oddi of Oddi 4-15 ity of dysfunctio dysfunctio [place] [facility] Constipati Constipati Disease Active 2019- U nivers on on 4-15 ity of 00:00: [place] [facility] Transamini Transamini Disease Active 2019- U nivers tis tis 4-15 ity of 00:00: [place] 00 Medical Branch Abdominal Abdominal Disease Active 2019- Uni vers pain pain 4-12 ity of 00:00: [place] [facility] Intractabl Intractabl Disease Active 2019-0 U nivers e e 4-11 it[place] of abdominal abdominal [place] Acute Acute Disease Active 2019- Univers pancreatit pancreatit 4-08 it y of is is 00:00: [place] [facility] Hypertensi Hypertensi Disease Active 2019- U nivers ve ve 3-21 ity of disorder disorder 00:00: [place] [facility] Cocaine Cocaine Disease Active Univers abuse abuse 3-21 ity of 00:00: [place] [facility] Alcoholism Alcoholism Disease Active U nivers 3-21 ity of 00:00: [place] [facility] Migraine Migraine Disease Active Unive rs 3-21 ity of 00:00: [place] [facility] Kidney Kidney Disease Active Univers stone stone 3-21 ity of 00:00: [place] [facility] Acute Acute Disease Active Univers pyelonephr pyelonephr 4-16 it y of itis itis 00:00: [place] [facility] Fibromyalg Fibromyalg Disease Active U nivers ia ia 4-20 ity of 00:00: [place] [facility] Nephrolith Nephrolith Disease Active U nivers iasis iasis 4-20 ity of 00:00: [place] [facility] Family Family Diagnosis Active Common history of history of Sp latesha diabetes diabetes - CHI mellitus mellitus [facility] Irritable Irritable Problem Active Com mon bowel bowel Spirit syndrome, syndrome, - [facility] I unspecifie unspecifie St d type d type [facility] Essential Essential Problem Active Com mon (primary) (primary) Spir it hypertensi hypertensi - [facility] on on [facility] Fibromyalg Fibromyalg Problem Active C ommon ia ia [facility] 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 Sp latesha on on - [facility] benzodiaze benzodiaze St pine use pine use [facility] Depression Depression Diagnosis Active Common with with Spirit anxiety anxiety - CHI [facility] Cocaine Cocaine Problem Active Common abuse abuse [facility] Depression Depression Disease Active U nivers ity of [facility] [place] [facility] Chronic Chronic Disease Active Univers migraine migraine ity of [facility] [place] [facility] Chronic Chronic Disease Active Univers back pain back pain ity of [facility] [place] [facility] Anxiety Anxiety Disease Active Univers ity [facility] [place] Allergies, Adverse Reactions, Alerts Allergy Allergy Status Severity Reaction(s) Onset Inactive Treating Comm ents Source Name Type Date Date Clinician sulfamet DA Active U [facility] hoxazole 5[facility]28 [place] [facility] trimetho DA Active [facility] 2019[facility] ciproflo DA Active U 2018-0 [facility]acin [facility] tramadol DA [facility] ketorola DA Active U 2018-0 [facility] Ketorola Propensi Active Anaphylaxis 2017-02 U nivers c ty to 0-09 ity of Trometha adverse 00:00: [place] mine reaction 00 Medical s Branch KETOROLA DRUG Active Anaphylaxis 2017-02 Uni vers C INGREDI 0-09 ity of TROMETHA 00:00: [place] MINE 00 Medical Branch Ciproflo Propensi Active Anaphylaxis 2015-02 U nivers xacin ty to 0-26 ity of adverse 00:00: [place] reaction 00 Medical s Branch Sulfa Propensi Active Anaphylaxis 2015-02 Uni vers (Sulfona ty to 0-26 ity of mide adverse 00:00: [place] Antibiot reaction 00 Medica l ics) s Branch Tramadol Propensi Active Anaphylaxis 2015-02 U nivers ty to 0-26 ity of adverse 00:00: [place] reaction 00 Medical s Branch CIPROFLO DRUG Active Anaphylaxis 2015-02 Uni vers XACIN INGREDI 0-26 ity of 00:00: [place] 00 Medical Branch SULFA Drug Active Anaphylaxis 2015-02 Unive rs (SULFONA Class 0-26 ity of MIDE 00:00: [place] ANTIBIOT 00 Medical ICS) Branch TRAMADOL DRUG Active Anaphylaxis 2015-02 Uni vers INGREDI 0-26 ity of 00:00: [place] 00 Medical Branch Sulfa Propensi Active Anaphylaxis 2015-02 Uni vers (Sulfona ty to 0-26 ity of mide adverse 00:00: [place] Antibiot reaction 00 Medica l ics) s Branch Toradol Adverse Active rash/swellin Co mmon Reaction g [facility] Tramadol Adverse Active rash/swellin C ommon HCl Reaction g [facility] Cipro Adverse Active rash/swellin Com mon Reaction g [facility] Bactrim Adverse Active rash/swellin Co mmon Reaction g [facility] Family History Family Member Diagnosis Comments Start Date Stop Date Source Maternal grandmother Cancer Meth [facility] Natural mother Cancer [facility] Natural mother Diabetes [facility] Natural mother Stroke [facility] Social History Social Habit Start Date Stop Date Quantity Comments Source History of tobacco Cigarette Smoker University use [facility] [place] [facility] Gender identity [facility] Sexual orientation [facility] Exposure to 2022-04-04 2022-04-14 Not sure [facility] SARS-CoV-2 (event) 00:00:00 18:20:00 [facility] [place] [facility] Tobacco use and 2018-09-06 2018-09-06 Smokeless Universit y of exposure 00:00:00 00:00:00 tobacco non-user [facility] Tobacco Comment 2016-06-02 2016-06-02 only smoked Universi ty of 00:00:00 00:00:00 [facility] Cigarette 2016-03-23 2016-03-23 [facility] pack-years 00:00:00 00:00:00 Hospital Alcohol intake 2016-03-23 2016-03-23 Current drinker [facility]o dist 00:00:00 00:00:00 of [facility] (finding) History of Social 2016-03-23 2016-03-[address] function 00:00:00 00:00:00 Hospital Alcohol Comment 2016-03-23 2016-03-23 Social [facility]-Ism 00:00:00 00:00:00 Hospital Cigarettes smoked 2016-03-23 2016-03-[address] current (pack per 00:00:00 00:00:00 Hospita l day) - Reported Sex Ass[birth year] At [birth year] [facility] 00:00:00 00:00:00 Hospital Smoking Status Start Date Stop Date Source Smokes tobacco daily 2018-09-06 00:00:00 Univers ity of [facility] [place] [facility] Medications Ordered Filled Start Stop Current Ordering Indication Dosage Frequency Signature Comments Components Source Medication Medication Date Date Medication? Clinician (SIG) Name Name NaCl 0.9% 2022- No 1000mL at 999 Uni vers (NS) bolus 3-03 03-03 mL/hr, ity of infusion 01:15: 01:20 1,000 mL, [place] as 1,000 mL 00 :00 IV Medical Infusion, Branch ONCE, 1 dose, On Rocio 04/14/22 at 1915, CHELSEY dexamethaso 2023-0 2023- No 10mg 10 mg, Uni vers ne sod phos 04-15 Slow IV ity of PF 00:30: 00:37 Push, [place] injection 00 :00 ONCE, 1 Medical 10 mg dose, On Branch [facility] 04/14/22 at 1830, 1 mL diphenhydrA 2022- No 25mg 25 mg, Uni vers MINE 04-15 Slow IV ity of (BENADRYL) 00:30: 00:37 Push, [place] injection 00 :00 ONCE, 1 Medical 25 mg dose, On Branch [facility] 04/14/22 at 1830, STAT metoclopram 2022- No 10mg 10 mg, Uni vers cristiano HCl 04-15 Slow IV ity of (REGLAN) 00:30: 00:37 Push, [place] injection 00 :00 ONCE, 1 Medical 10 mg dose, On Branch [facility] 04/14/22 at 1830, CHELSEY ondansetron 2021-0 2021- No 4mg 4 mg, Slow Univers (ZOFRAN 07-17 IV Push, ity of (PF)) 16:00: 15:00 ONCE, 1 [place] injection 4 00 :00 dose, On Medi kirby mg 07/17/21 Branch at 1100, CHELSEY acetaminoph 2021-2021- No 975mg 975 mg, U nivers en 07-17 Oral, ity of (TYLENOL) 16:00: 15:00 ONCE, 1 [place] tablet 975 00 :00 dose, On Medic al mg 07/17/21 Branch at 1100, CHELSEY ondansetron 2021-0 2021- No 4mg 4 mg, Slow Univers (ZOFRAN 06-09 IV Push, ity of (PF)) 00:00: 23:14 ONCE, 1 [place] injection 4 00 :00 dose, On Medi kirby mg Tue Branch 06/08/21 at 1900, CHELSEY morpHINE 2021-0 2021- No 4mg 4 mg, Slow Un delmy injection 4 06-0926 IV Push, ity of mg 00:00: 23:15 ONCE, 1 [place] 00 :00 dose, On Medical Tue Branch 06/08/21 at 1900, STAT NaCl 0.9% 2021- No 1000mL at 999 Uni vers (NS) bolus 4-26 04-27 mL/hr, ity of infusion 23:30: 00:36 1,000 mL, Marcel as 1,000 mL 00 :00 IV Medical Infusion, Branch ONCE, 1 dose, On Mon06/08/21 at 1830, STAT ondansetron 2021-0 Yes [id number] 4mg Take 1 Univers 4 mg 4-26 tablet by ity of disintegrat 00:00: mouth [place] ing tablet 00 every 8 Medica l (eight) Branch hours as needed for Nausea and Vomiting (N/V). ondansetron 2021-0 Yes [id number] 4mg Take 1 Univers 4 mg 4-26 tablet by ity of disintegrat 00:00: mouth [place] ing tablet 00 every 8 Medica l (eight) Branch hours as needed for Nausea and Vomiting (N/V). ondansetron 2021-0 Yes [id number] 4mg Take 1 Univers 4 mg 4-26 tablet by ity of disintegrat 00:00: mouth [place] ing tablet 00 every 8 Medica l (eight) Branch hours as needed for Nausea and Vomiting (N/V). gabapentin 2022-0 Yes 800mg Take 800 Un delmy 800 mg 2-10 mg by ity of tablet 05:02: mouth 3 [place] 03 (three) Medical times Branch daily. gabapentin 2022-0 Yes 800mg Take 800 Un delmy 800 mg 2-10 mg by ity of tablet 05:02: mouth 3 [place] 03 (three) Medical times Branch daily. gabapentin 2022-0 Yes 800mg Take 800 Un delmy 800 mg 2-10 mg by ity of tablet 05:02: mouth 3 [place] 03 (three) Medical times Branch daily. gabapentin 2022-0 Yes 800mg Take 800 Un delmy 800 mg 2-10 mg by ity of tablet 05:02: mouth 3 [place] 03 (three) Medical times Branch daily. ondansetron 2021-0 2021- No 4mg 4 mg, Slow Univers (ZOFRAN 03-23- IV Push, ity of (PF)) 21:45: 21:01 ONCE, 1 [place] injection 4 00 :00 dose, On Medi kirby mg Mon03/23/21 Branch at 1545, Routine iopamidol 2021- No [id number] 100mL 100 mL, Univers (ISOVUE 03-23- Intravenou ity o f 370-500 mL) 21:13: 21:14 s, ONCE, 1 [place] injection 00 :00 dose, On Medica l 100 mL Mon03/23/21 Branch at 1530, Routine NaCl 0.9% 2021- No 1000mL at 999 Uni vers (NS) bolus 03-23- mL/hr, ity of infusion 20:45: 22:01 1,000 mL, Marcel as 1,000 mL 00 :00 IV Medical Infusion, Branch ONCE, 1 dose, On Mon03/23/21 at 1445, STAT gabapentin 2021-0 Yes 800mg Take 800 Un delmy 800 mg 2-08 mg by ity of tablet 14:33: mouth 3 [place] 23 (three) Medical times Branch daily. tiZANidine 2021-2021- No 4mg Take 4 mg U nivers 4 mg 03-23-08 by mouth 2 ity of capsule 14:31: 00:00 (two) [place] 08 :00 times Medical daily. Branch tamsulosin 2021-0 2021- No Take by Uni vers (FLOMAX) 2- 02-08 mouth ity of 0.4 mg 24 14:31: 00:00 daily. [place] hr capsule 01 :00 Medical Branch pregabalin 2021-0 2021- No 100mg Take 100 U nivers (LYRICA) 2- 02-08 mg by ity of 100 mg 14:30: 00:00 mouth 2 [place] capsule 43 :00 (two) Medical times Branch daily. metFORMIN 2021-0 2021- No 500mg Take 500 Un delmy 500 mg 2 02-08 mg by ity of tablet 14:30: 00:00 mouth 2 [place] 00 :00 (two) Medical times Branch daily with meals. linaCLOtide 2021-0 2021- No Take by Un delmy (LINZESS) 2- 02-08 mouth 2 ity of 145 mcg 14:29: 00:00 (two) [place] capsule 06 :00 times Medical daily. Branch dicyclomine 2021-0 Yes [id number] 10mg Take 1 Univers (BENTYL) 10 -08 capsule by it y of mg capsule 00:00: mouth [place] 00 every 8 Medical (eight) Branch hours as needed for Abdominal pain. ondansetron 2022-0 Yes [id number] 4mg Take 1 Univers 4 mg 2-08 tablet by ity of disintegrat 00:00: mouth [place] ing tablet 00 every 8 Medica l (eight) Branch hours as needed for Nausea and Vomiting (N/V). methylPREDN 2022-0 Yes [id number] Take by Univers ISolone 2-08 mouth ity of (MEDROL, 00:00: SEE-INSTRU Marcel as CARRIE,) 4 mg 00 CTIONS. Medica l tablets follow Branch package directions dicyclomine 2022-0 Yes [id number] 10mg Take 1 Univers (BENTYL) 10 2-08 capsule by it y of mg capsule 00:00: mouth [place] 00 every 8 Medical (eight) Branch hours as needed for Abdominal pain. ondansetron 2022-0 Yes [id number] 4mg Take 1 Univers 4 mg 2-08 tablet by ity of disintegrat 00:00: mouth [place] ing tablet 00 every 8 Medica l (eight) Branch hours as needed for Nausea and Vomiting (N/V). methylPREDN 2022-0 Yes [id number] Take by Univers ISolone 2-08 mouth ity of (MEDROL, 00:00: SEE-INSTRU Marcel as CARRIE,) 4 mg 00 CTIONS. Medica l tablets follow Branch package directions dicyclomine 2-0 Yes [id number] 10mg Take 1 Univers (BENTYL) 10 2-08 capsule by it y of mg capsule 00:00: mouth [place] 00 every 8 Medical (eight) Branch hours as needed for Abdominal pain. methylPREDN 2022-0 Yes [id number] Take by Univers ISolone 2-08 mouth ity of (MEDROL, 00:00: SEE-INSTRU Marcel as CARRIE,) 4 mg 00 CTIONS. Medica l tablets follow Branch package directions dicyclomine 2022-0 Yes [id number] 10mg Take 1 Univers (BENTYL) 10 2-08 capsule by it y of mg capsule 00:00: mouth [place] 00 every 8 Medical (eight) Branch hours as needed for Abdominal pain. methylPREDN 2022-0 Yes [id number] Take by Univers ISolone 2-08 mouth ity of (MEDROL, 00:00: SEE-INSTRU Marcel as CARRIE,) 4 mg 00 CTIONS. Medica l tablets follow Branch package directions dicyclomine Yes [id number] 10mg Take 1 Univers (BENTYL) 10 -08 capsule by it y of mg capsule 00:00: mouth [place] 00 every 8 Medical (eight) Branch hours as needed for Abdominal pain. methylPREDN Yes [id number] Take by Univers ISolone -08 mouth ity of (MEDROL, 00:00: SEE-INSTRU [place] as CARRIE,) 4 mg 00 CTIONS. Medica l tablets follow Branch package directions ondansetron 2021- No [id number] 4mg Take 1 Univers 4 mg 03-23-26 tablet by ity of disintegrat 00:00: 00:00 mouth [place] ing tablet 00 :00 every 8 Medica l (eight) Branch hours as needed for Nausea and Vomiting (N/V). amoxicillin 2021- No [id number] 1{tbl} Take 1 Univers -clavulanat 03-23-16 tablet by it y of e 875-125 00:00: 05:59 mouth [place] mg per 00 :00 every 12 Medical tablet (twelve) Branch hours for 7 days. dexamethaso 2020-02- No 10mg 10 mg, Uni vers ne 02-14 Intramuscu ity of (DECADRON 23:45: 22:41 lar, ONCE, [place] PHOSPHATE) 00 :00 1 dose, On Med ical injection Tue Branch 10 mg 12/15/20 at 1845, STAT diazePAM 2020-02- No 5mg 5 mg, Univers (VALIUM) 02-14 Intramuscu ity of injection 5 23:45: 22:42 lar, ONCE, [place] mg 00 :00 1 dose, On Medical Tue Branch 12/15/20 at 1845, STAT methocarbam 2020-02 Yes [id number] 750mg Take 1 Univers oL -02 tablet by ity of (ROBAXIN-75 00:00: mouth 4 [place] as 0) 750 mg 00 (four) Medical tablet times Branch daily as needed for Pain (scale 7-10). predniSONE 2020-02 Yes [id number] 60mg Take 3 Univers 20 mg -02 tablets by ity of tablet 00:00: mouth [place] 00 every Medical morning. Branch methocarbam 2020-02- No [id number] 750mg Take 1 Univers oL 02-14-08 tablet by ity of (ROBAXIN-75 00:00: 00:00 mouth 4 [place] 0) 750 mg 00 :00 (four) Medical tablet times Branch daily as needed for Pain (scale 7-10). predniSONE 2020-02- No [id number] 60mg Take 3 Univers 20 mg 02-14-08 tablets by ity of tablet 00:00: 00:00 mouth [place] 00 :00 every Medical morning. Branch metFORMIN 2020-0 Yes 500mg Take 500 Uni vers 500 mg 6-17 mg by ity of tablet 21:10: mouth 2 [place] 03 (two) Medical times Branch daily with meals. linaCLOtide 2020-0 Yes Take by Uni vers (LINZESS) 6-17 mouth 2 ity of 145 mcg 21:10: (two) [place] capsule 03 times Medical daily. Branch pregabalin 2020-0 Yes 100mg Take 100 Un delmy (LYRICA) 6-17 mg by ity of 100 mg 21:10: mouth 2 [place] capsule 03 (two) Medical times Branch daily. tiZANidine 2020-0 Yes 4mg Take 4 mg Un delmy 4 mg 6-17 by mouth 2 ity of capsule 21:10: (two) [place] 03 times Medical daily. Branch tamsulosin 0 Yes Take by Univ ers (FLOMAX) 6-17 mouth ity of 0.4 mg 24 21:10: daily. [place] hr capsule 03 Medical Branch metFORMIN 2020-0 Yes 500mg Take 500 Uni vers 500 mg 6-17 mg by ity of tablet 16:10: mouth 2 [place] 03 (two) Medical times Branch daily with meals. linaCLOtide 2020-0 Yes Take by Uni vers (LINZESS) 6-17 mouth 2 ity of 145 mcg 16:10: (two) [place] capsule 03 times Medical daily. Branch pregabalin 2020-0 Yes 100mg Take 100 Un delmy (LYRICA) 6-17 mg by ity of 100 mg 16:10: mouth 2 [place] capsule 03 (two) Medical times Branch daily. tiZANidine 1-0 Yes 4mg Take 4 mg Un delmy 4 mg 6-17 by mouth 2 ity of capsule 16:10: (two) [place] 03 times Medical daily. Branch tamsulosin 1-0 Yes Take by Univ ers (FLOMAX) 6-17 mouth ity of 0.4 mg 24 16:10: daily. [place] hr capsule 03 Medical Branch metFORMIN 2021-0 Yes 500mg Take 500 Uni vers 500 mg 6-17 mg by ity of tablet 16:10: mouth 2 [place] 03 (two) Medical times Branch daily with meals. linaCLOtide 2021-0 Yes Take by Uni vers (LINZESS) 6-17 mouth 2 ity of 145 mcg 16:10: (two) [place] capsule 03 times Medical daily. Branch pregabalin 2021-0 Yes 100mg Take 100 Un delmy (LYRICA) 6-17 mg by ity of 100 mg 16:10: mouth 2 [place] capsule 03 (two) Medical times Branch daily. tiZANidine 2021-0 Yes 4mg Take 4 mg Un delmy 4 mg 6-17 by mouth 2 ity of capsule 16:10: (two) [place] 03 times Medical daily. Branch tamsulosin 2020-0 Yes Take by Univ ers (FLOMAX) 6-17 mouth ity of 0.4 mg 24 16:10: daily. [place] hr capsule 03 Medical Branch metFORMIN 2020-0 Yes 500mg Take 500 Uni vers 500 mg 6-17 mg by ity of tablet 16:10: mouth 2 [place] (two) Medical times Branch daily with meals. linaCLOtide 1-0 Yes Take by Uni vers (LINZESS) 6-17 mouth 2 ity of 145 mcg 16:10: (two) [place] capsule 03 times Medical daily. Branch pregabalin 1-0 Yes 100mg Take 100 Un delmy (LYRICA) 6-17 mg by ity of 100 mg 16:10: mouth 2 [place] capsule 03 (two) Medical times Branch daily. tiZANidine 2021-0 Yes 4mg Take 4 mg Un delmy 4 mg 6-17 by mouth 2 ity of capsule 16:10: (two) [place] 03 times Medical daily. Branch tamsulosin 1-0 Yes Take by Univ ers (FLOMAX) 6-17 mouth ity of 0.4 mg 24 16:10: daily. [place] hr capsule 03 Medical Branch ondansetron 1-0 Yes [id number] 4mg Take 1 Univers (ZOFRAN 5-12 tablet by ity of ODT) 4 mg 00:00: mouth [place] disintegrat 00 every 8 Medic al ing tablet (eight) Branch hours as needed for Nausea and Vomiting (N/V). ondansetron 0 Yes [id number] 4mg Take 1 Univers (ZOFRAN 5-12 tablet by ity of ODT) 4 mg 00:00: mouth [place] disintegrat 00 every 8 Medic al ing tablet (eight) Branch hours as needed for Nausea and Vomiting (N/V). ondansetron Yes [id number] 4mg Take 1 Univers (ZOFRAN 5-12 tablet by ity of ODT) 4 mg 00:00: mouth [place] disintegrat 00 every 8 Medic al ing tablet (eight) Branch hours as needed for Nausea and Vomiting (N/V). ondansetron Yes [id number] 4mg Take 1 Univers (ZOFRAN 5-12 tablet by ity of ODT) 4 mg 00:00: mouth [place] disintegrat 00 every 8 Medic al ing tablet (eight) Branch hours as needed for Nausea and Vomiting (N/V). ondansetron 2021- No [id number] 4mg Take 1 Univers (ZOFRAN 5-12 02-08 tablet by ity of ODT) 4 mg 00:00: 00:00 mouth [place] disintegrat 00 :00 every 8 Medic al ing tablet (eight) Branch hours as needed for Nausea and Vomiting (N/V). albuterol Yes [id number] 2.5mg Inhale 3 Univers 2.5 mg /3 1-17 mL every 4 ity of mL (0.083 00:00: (four) [place] %) 00 hours. May Medical nebulizer also Branch solution nebulize one extra every 6 hours. albuterol Yes [id number] 2.5mg Inhale 3 Univers 2.5 mg /3 1-17 mL every 4 ity of mL (0.083 00:00: (four) [place] %) 00 hours. May Medical nebulizer also Branch solution nebulize one extra every 6 hours. albuterol Yes [id number] 2.5mg Inhale 3 Univers 2.5 mg /3 1-17 mL every 4 ity of mL (0.083 00:00: (four) [place] %) 00 hours. May Medical nebulizer also Branch solution nebulize one extra every 6 hours. albuterol 2020-0 Yes [id number] 2.5mg Inhale 3 Univers 2.5 mg /3 1-17 mL every 4 ity of mL (0.083 00:00: (four) [place] %) 00 hours. May Medical nebulizer also Branch solution nebulize one extra every 6 hours. albuterol 2020-0 2022- No [id number] 2.5mg Inhale 3 Univers 2.5 mg /3 1-17 02-08 mL every 4 ity of mL (0.083 00:00: 00:00 (four) [place] %) 00 :00 hours. May Medical nebulizer also Branch solution nebulize one extra every 6 hours. aspirin 81 2019-0 Yes [id number] 81mg Take 1 U nivers mg chewable 7-28 tablet by ity of tablet 00:00: mouth [place] 00 daily. Medical Branch aspirin 81 2019-0 Yes [id number] 81mg Take 1 U nivers mg chewable 7-28 tablet by ity of tablet 00:00: mouth [place] 00 daily. Medical Branch aspirin 81 2019-0 Yes [id number] 81mg Take 1 U nivers mg chewable 7-28 tablet by ity of tablet 00:00: mouth [place] 00 daily. Medical Branch aspirin 81 2019-0 Yes [id number] 81mg Take 1 U nivers mg chewable 7-28 tablet by ity of tablet 00:00: mouth [place] 00 daily. Medical Branch aspirin 81 2019-0 Yes [id number] 81mg Take 1 U nivers mg chewable 7-28 tablet by ity of tablet 00:00: mouth [place] 00 daily. Medical Branch aspirin 81 2019-0 Yes [id number] 81mg Take 1 U nivers mg chewable 7-28 tablet by ity of tablet 00:00: mouth [place] 00 daily. Medical Branch aspirin 81 2019-0 Yes [id number] 81mg Take 1 U nivers mg chewable 7-28 tablet by ity of tablet 00:00: mouth [place] 00 daily. Medical Branch aspirin 81 2019-0 Yes [id number] 81mg Take 1 U nivers mg chewable 7-28 tablet by ity of tablet 00:00: mouth [place] 00 daily. Medical Branch aspirin 81 2019-0 Yes [id number] 81mg Take 1 U nivers mg chewable 7-28 tablet by ity of tablet 00:00: mouth [place] 00 daily. Medical Branch atorvastati Yes [id number] 20mg Take 1 Univers n 20 mg 7-27 tablet by ity of tablet 00:00: mouth at [place] 00 bedtime. Medical Branch atorvastati Yes [id number] 20mg Take 1 Univers n 20 mg 7-27 tablet by ity of tablet 00:00: mouth at [place] 00 bedtime. Medical Branch atorvastati Yes [id number] 20mg Take 1 Univers n 20 mg 7-27 tablet by ity of tablet 00:00: mouth at [place] 00 bedtime. Medical Branch atorvastati Yes [id number] 20mg Take 1 Univers n 20 mg 7-27 tablet by ity of tablet 00:00: mouth at [place] 00 bedtime. Medical Branch atorvastati 2021- No [id number] 20mg Take 1 Univers n 20 mg 7-27 02-08 tablet by ity of tablet 00:00: 00:00 mouth at [place] 00 :00 bedtime. Medical Branch sennosides Yes 8.6mg Take 1 Univ ers 8.6 mg 4-16 tablet by ity of tablet 00:00: mouth [place] 00 daily. Medical Branch sennosides Yes 8.6mg Take 1 Univ ers 8.6 mg 4-16 tablet by ity of tablet 00:00: mouth [place] 00 daily. Medical Branch sennosides Yes 8.6mg Take 1 Univ ers 8.6 mg 4-16 tablet by ity of tablet 00:00: mouth [place] 00 daily. Medical Branch sennosides Yes 8.6mg Take 1 Univ ers 8.6 mg 4-16 tablet by ity of tablet 00:00: mouth [place] 00 daily. Medical Branch sennosides 2021- No 8.6mg Take 1 Uni vers 8.6 mg 4-16 02-08 tablet by ity of tablet 00:00: 00:00 mouth [place] 00 :00 daily. Medical Branch ondansetron Yes [id number] 8mg Take 1 Univers (ZOFRAN) 8 4-15 tablet by ity of mg tablet 00:00: mouth [place] 00 every 8 Medical (eight) Branch hours as needed for Nausea and Vomiting (N/V). ondansetron Yes [id number] 8mg Take 1 Univers (ZOFRAN) 8 4-15 tablet by ity of mg tablet 00:00: mouth [place] 00 every 8 Medical (eight) Branch hours as needed for Nausea and Vomiting (N/V). ondansetron 2018- Yes [id number] 8mg Take 1 Univers (ZOFRAN) 8 4-15 tablet by ity of mg tablet 00:00: mouth [place] 00 every 8 Medical (eight) Branch hours as needed for Nausea and Vomiting (N/V). ondansetron 2018- Yes [id number] 8mg Take 1 Univers (ZOFRAN) 8 4-15 tablet by ity of mg tablet 00:00: mouth [place] 00 every 8 Medical (eight) Branch hours as needed for Nausea and Vomiting (N/V). ondansetron 2021- No [id number] 8mg Take 1 Univers (ZOFRAN) 8 4-15 02-08 tablet by ity of mg tablet 00:00: 00:00 mouth [place] 00 :00 every 8 Medical (eight) Branch hours as needed for Nausea and Vomiting (N/V). budesonide- Yes 2{puff} Q.5D Inhale 2 Methodi formoterol 2-[address] (SYMBICORT) 09:50: (two) Hospi ta 80-4.5 10 times a l mcg/actuati day. on inhaler topiramate Yes 100mg QD Take 100 Me thodi (TROKENDI 2-[address] XR) 100 mg 09:50: mouth Hospit a capsule,ext 10 daily. l ended release 24hr milnacipran 2016- Yes 100mg Q.5D Take 100 M ethodi (SAVELLA) 2-[address] 50 mg 09:50: mouth 2 Hospita tablet 10 (two) l times a day. sertraline 2017-0 Yes 100mg QD Take 100 Me thodi (ZOLOFT) 2-[address] 100 MG 09:50: mouth [facility]osp[facility] tablet 10 daily. l ALPRAZolam 2016- Yes 2mg QD Take 2 mg Me th[facility] (XANAX) 2 2-[address] MG tablet 09:50: nightly as Ho spita 10 needed for l anxiety. acetaminoph 2017-0 Yes 1{tbl} Q4H Take 1 Me thodi en-codeine 2-[address] (TYLENOL 09:50: mouth Hospita WITH 10 every 4 l CODEINE #4) (four) 300-60 mg hours as per tablet needed for moderate pain. Alprazolam Alprazolam Yes Alex (Schedule Common Octavio IV Drug) [facility] Hyoscyamine Hyoscyamine Yes Alex not Common Sulfate Sulfate Octavio defined Spiri t [facility] Duloxetine Duloxetine Yes Alex not C ommon HCl HCl Octavio defined [facility] Acetaminoph Acetaminoph Yes Alex (Schedule Common en-Codeine en-Codeine Octavio III Drug) [facility] #3 #3 [facility] Gabapentin Gabapentin Yes Alex as C ommon Octavio directed [facility] Vital Signs Vital Name Observation Time Observation Value Comments Source Systolic blood 2022-04-15 00:19:00 145 mm[facility]Hg[facility] 2022-04-15 00:19:00 111 mm[Hg] [facility] Heart rate 2022-04-15 00:19:00 79 /min [facility] Body temperature 2022-04-15 00:19:00 36.89 Fe [facility] Respiratory rate 2022-04-15 00:19:00 18 /min [facility] Oxygen saturation in 2022-04-15 00:19:00 99 /min [facility] Arterial blood by [facility] Pulse oximetry Branch Systolic blood 2021-07-17 14:34:00 130 mm[Hg] Univer [facility] Diastolic blood 2021-07-17 14:34:00 89 mm[Hg] [facility] Heart rate 2021-07-17 14:34:00 64 /min [facility] Body temperature 2021-07-17 14:34:00 36.11 Fe [facility] Respiratory rate 2021-07-17 14:34:00 18 /min [facility] [place] [facility] Body weight 2021-07-17 14:34:00 54.432 kg [facility] [place] [facility] BMI 2021-07-17 14:34:00 22.67 kg/m2 [facility] [place] [facility] Oxygen saturation in 2021-07-17 14:34:00 99 /min University of Arterial blood by [facility] [place] [facility] kirby Pulse oximetry Branch Systolic blood 2021-06-09 02:20:00 117 mm[Hg] Univer sity of pressure [place] [facility] Diastolic blood 2021-06-09 02:20:00 74 mm[Hg] Unive rsity of pressure [place] [facility] Heart rate 2021-06-09 02:20:00 64 /min [facility] [place] [facility] Body temperature 2021-06-09 02:20:00 37 Fe [facility] [place] [facility] Respiratory rate 2021-06-09 02:20:00 15 /min [facility] [place] [facility] Oxygen saturation in 2021-06-09 02:20:00 100 /min University of Arterial blood by [facility] Pulse oximetry Branch Body weight 2021-06-08 22:07:00 55.339 kg [facility] [place] [facility] BMI 2021-06-08 22:07:00 23.05 kg/m2 [facility] [place] [facility] Systolic blood 2021-03-23 20:26:00 152 mm[Hg] Univer sity of pressure [place] [facility] Diastolic blood 2021-03-23 20:26:00 105 mm[Hg] Unive rsity of pressure [place] [facility] Heart rate 2021-03-23 20:26:00 58 /min [facility] [place] [facility] Body temperature 2021-03-23 20:26:00 36.78 Fe [facility] [place] [facility] Respiratory rate 2021-03-23 20:26:00 20 /min [facility] [place] [facility] Body height 2021-03-23 20:26:00 154.9 cm [facility] [place] [facility] Body weight 2021-03-23 20:26:00 55.384 kg [facility] [place] [facility] BMI 2021-03-23 20:26:00 23.07 kg/m2 [facility] [place] [facility] Oxygen saturation in 2021-03-23 20:26:00 100 /min University of Arterial blood by [facility] [place] [facility] kirby Pulse oximetry Branch Systolic blood 2020-12-16 00:00:00 136 mm[Hg] Univer sity of [facility] [place] [facility] Diastolic blood 2020-12-16 00:00:00 85 mm[Hg] Unive rsity of [facility] [place] [facility] Heart rate 2020-12-16 00:00:00 52 /min [facility] [place] [facility] Respiratory rate 2020-12-16 00:00:00 20 /min [facility] [place] [facility] Oxygen saturation in 2020-12-16 00:00:00 100 /min University of Arterial blood by [facility] Pulse oximetry Branch Body temperature 2020-12-15 22:17:00 37.06 Fe Univ [facility] [place] [facility] Body weight 2020-12-15 22:17:00 63.504 kg [facility] [place] [facility] BMI 2020-12-15 22:17:00 26.45 kg/m2 [facility] [place] [facility] Systolic blood 2020-12-13 21:29:00 150 mm[Hg] Univer sity of pressure [place] [facility] Diastolic blood 2020-12-13 21:29:00 84 mm[Hg] Unive rsity of [facility] [place] [facility] Heart rate 2020-12-13 21:28:00 79 /min [facility] [place] [facility] Body temperature 2020-12-13 21:28:00 36.83 Fe [facility] [place] [facility] Respiratory rate 2020-12-13 21:28:00 18 /min [facility] [place] [facility] Body height 2020-12-13 21:28:00 154.9 cm [facility] [place] [facility] Body weight 2020-12-13 21:28:00 63.504 kg [facility] [place] [facility] BMI 2020-12-13 21:28:00 26.45 kg/m2 [facility] [place] [facility] Oxygen saturation in 2020-12-13 21:28:00 100 /min University of Arterial blood by [facility] Pulse oximetry Branch Systolic blood 2020-10-22 18:39:00 160 mm[Hg] Univer sity of pressure [place] [facility] Diastolic blood 2020-10-22 18:39:00 113 mm[Hg] Unive rsity of pressure [place] [facility] Heart rate 2020-10-22 18:39:00 60 /min [facility] Body temperature 2020-10-22 18:39:00 37.06 Fe [facility] Respiratory rate 2020-10-22 18:39:00 18 /min [facility] Body weight 2020-10-22 18:39:00 63.504 kg [facility] BMI 2020-10-22 18:39:00 26.45 kg/m2 [facility] Oxygen saturation in 2020-10-22 18:39:00 100 /min [facility] Arterial blood by [facility] Pulse oximetry Branch Procedures Procedure Date / Time Performed Performing Clinician Sour e COMP. METABOLIC PANEL 2022-04-15 00:38:00 Holli Zarate [facility] ([id number]) Medical Branch CBC WITH DIFF 2022-04-15 00:38:00 Holli Zarate [facility] CT HEAD WO CONTRAST 2022-04-15 00:30:55 [facility] CONSENT/REFUSAL FOR 2022-04-15 00:08:12 [facility] Branch TREATMENT CT ABDOMEN PELVIS WO 2021-07-17 15:10:42 Sayda Ramírez [facility] Branch LIPASE 2021-07-17 14:42:00 [facility] COMP. METABOLIC PANEL 2021-07-17 14:42:00 Sayda Ramírez [facility] ([id number]) [facility] CBC WITH DIFF 2021-07-17 14:42:[address] [facility] URINALYSIS 2021-07-17 14:42:00 [facility] CONSENT/REFUSAL FOR 2021-07-17 14:31:47 Doctor [facility]assigned, [facility] Name Medical [place] TREATMENT URINALYSIS 2021-06-09 00:39:[address] [facility] CT CERVICAL SPINE WO 2021-06-08 23:12:30 Fatemeh Feliz [facility] HEAD WO CONTRAST 2021-06-08 23:12:30 Fatemeh Feliz [facility] Medical Branch TROPONIN I 2021-06-08 22:33:00 Fatemeh Feliz [facility] Medical Branch COMP. METABOLIC PANEL 2021-06-08 22:33:00 Fatemeh Feliz [facility] ([id number]) Medical Branch CBC WITH DIFF 2021-06-08 22:33:00 Fatemeh Feliz [facility] Branch CONSENT/REFUSAL FOR 2021-06-08 21:56:43 Doctor Unassigned, No Un [facility] [place] DIAGNOSIS AND Name Medical Branch TREATMENT NOTICE OF PRIVACY 2021-06-08 21:56:31 Doctor Unassigned, No Univ ersity of [facility] Name Medical Branch URINALYSIS 2021-03-23 21:47:00 Singer [facility] CT ABDOMEN PELVIS W 2021-03-23 21:18:43 Singer [facility] CONTRAST Medical Branch COMP. METABOLIC PANEL 2021-03-23 20:54:00 Abiodun Solorzano [facility] ([id number]) Medical Branch CBC WITH DIFF 2021-03-23 20:54:00 Solorzano [facility] Branch CONSENT/REFUSAL FOR 2021-03-23 20:13:12 Doctor Unassigned, No Un [facility] [place] DIAGNOSIS AND Name Medical Branch TREATMENT NOTICE OF PRIVACY 2020-12-15 22:15:25 Doctor Unassigned, No Univ [facility] [place] PRACTICES Name Medical Branch CONSENT/REFUSAL FOR 2020-12-15 22:13:21 Doctor Unassigned, No Un [facility] [place] DIAGNOSIS AND Name Medical Branch TREATMENT CONSENT/REFUSAL FOR 2020-12-13 21:26:43 Doctor Unassigned, No Un [facility] [place] DIAGNOSIS AND Name Medical Branch TREATMENT CONSENT/REFUSAL FOR 2020-10-22 18:33:50 Doctor Unassigned, No Un [facility] [place] DIAGNOSIS AND Name Medical Branch TREATMENT Plan of Care Planned Activity Planned Date Details Comments Source Future Scheduled 2022-08-03 Screening for [facility] Test 21:11:51 malignant neoplasm of colon (procedure) [code = 311314324] Future Scheduled 2022-08-03 Screening for [facility] Test 21:11:51 malignant neoplasm of colon (procedure) [code = 455147045] Future Scheduled 2022-08-03 Screening for [facility] Test 21:11:51 malignant neoplasm of colon (procedure) [code = 459798581] Future Scheduled 2022-08-03 COVID-[address] [facility] Test 21:11:51 (#1) [code = COVID-19 VACCINE (#1)] Future Scheduled 2022-08-03 Screening for [facility] Test 21:11:51 malignant neoplasm of cervix (procedure) [code = 691453152] Future Scheduled 2022-08-03 BREAST CANCER [facility] Test 21:11:51 SCREENING [code = BREAST CANCER SCREENING] Future Scheduled 2022-08-03 Screening for [facility] Test 21:11:51 malignant neoplasm of colon (procedure) [code = 668632976] Future Scheduled 2022-08-03 Screening for [facility] Test 21:11:51 malignant neoplasm of colon (procedure) [code = 187446783] Future Scheduled 2022-08-03 IN[facility]UENZA VACCINE [facility] 21:11:51 [code = INFLUENZA VACCINE] Encounters Start End Encounter Admission Attending Care Care Encounter Source Date/Time Date/Time Type Type Clinicians Facility Department ID 2020-12-14 Emergency [facility] [id number] Univers 21:33:21 ity of [facility] [place] [facility] 2020-12-14 Emergency [facility] [id number] Univers 12:56:54 ity of [facility] [place] [facility] 2020-12-14 Emergency [facility] [id number] Univers 04:04:33 ity of [facility] [place] [facility] 2020-12-14 Emergency [facility] [id number] Univers 01:38:51 ity of [facility] [place] [facility] 2020-12-13 Emergency [facility] [id number] Univers 18:41:20 ity of [facility] [place] [facility] 2020-12-12 Emergency [facility] [id number] Univers 17:48:02 ity of [facility] [place] [facility] 2020-12-12 Emergency [facility] [id number] Univers 17:44:31 ity of [facility] [place] [facility] 2020-12-12 [facility] [id number] Univers 10:57:55 ity of [facility] [place] [facility] 2020-12-11 Emergency [facility] [id number] Univers 14:02:04 ity of [facility] [place] [facility] 2020-12-10 Emergency [facility] [id number] Univers 13:56:05 ity [facility] [place] 2022-04-14 2022-04-14 Emergency X [facility] ERT [id number] Univers 18:21:00 19:24:00 HOLLI ity [facility] [place] 2022-04-14 2022-04-14 [facility] [id number] Univers 18:21:00 19:24:00 Holli SCANLON [id number] ity of [place] [id number] [place] [id number] [address] 2021-07-17 2021-07-17 Emergency [facility] [id number] Univers 09:43:00 11:11:00 SAYDA ity [facility] [place] 2021-07-17 2021-07-17 Emergency [facility] [id number] Univers 09:43:00 11:11:00 Sayda SCANLON [id number] i ty of [place] 4.2.7.2.686 [facility] [id number] [facility] 084 [place] 2021-06-08 2021-06-08 Emergency [facility] [id number] Univers 17:09:00 22:10:00 FATEMEH ity [facility] [place] 2021-06-08 2021-06-08 [facility] [id number] Univers 17:09:00 22:10:00 Fatemeh Jose M SCANLON [id number] i ty of [place] 4.2.7.2.686 [place] [id number] [facility] 084 [place] 2021-06-08 2021-06-08 Orders Doctor DANIELLE [id number] Univers 00:00:00 00:00:00 Only Unassigned, LOUANN [id number] ity of [place] [facility] 4.2.7.2.686 Marcel [id number] [facility] 009 Branch 2021-03-23 2021-03-23 Emergency X [facility] ERT [id number] Univers 14:33:00 17:02:00 ABIODUN itfelicia [facility] [place] 2021-03-23 2021-03-23 Emergency [facility] [id number] Univers 14:33:00 17:02:00 Abiodun SCANLON 350.1.13.10 i ty of [place] 4.2.7.2.686 [facility] [id number] [address] 2021-02-16 2021-02-16 Outpatient R UNKNOWN, [facility] [id number] Univers 11:00:00 11:00:00 ATTENDING y [facility] [place] 2020-12-15 2020-12-15 Emergency Dimple [facility] [id number] Univers 17:18:00 19:07:00 MICHAEL itfelicia [facility] [place] 2020-12-15 2020-12-15 Emergency [facility] [id number] Univers 17:18:00 19:07:00 Michael SCANLON 350.1.13.10 i ty of [place] 4.2.7.2.686 [facility] [id number] [address] 2020-12-13 2020-12-13 Emergency X Brando [facility] ERT [id number] Univers 16:30:00 18:44:00 ity [facility] [place] 2020-12-13 2020-12-13 Emergency Brando Mcpherson [facility] [id number] Univers 16:30:00 18:44:00 Pricila SCANLON 350.1.13.10 i ty [place] 4.2.7.2.686 [place] [facility] [id number] [address] 2020-12-13 2020-12-13 Orders Doctor DANIELLE [id number] [id number] Univers 00:00:00 00:00:00 Only Unassigned, LOUANN 350.1.13.10 ity of [place] [facility] 4.2.7.2.686 Marcel as [id number] [place] [address] Branch 2020-10-26 2020-10-26 Outpatient R DAVIDE, [facility] [id number] Univers 13:30:00 13:30:00 WONDIFUL ena o f [facility] [place] [facility] 2020-10-22 2020-10-22 Emergency [facility] [id number] Univers 13:42:00 15:47:00 Fatemeh [place] 350.1.13.10 i ty [facility] 4.2.7.2.686 [facility] [id number] [facility] 084 Branch 2020-05-07 2020-05-08 [facility] LA[facility]EN [id number] Univers 16:07:00 17:42:00 JEANNETTE [facility] 2019-01-21 2019-01-21 Emergency [facility] ERT [id number] Univers 12:03:44 17:42:00 SAYDA [facility] 2018-06-06 2018-06-06 Outpatient [facility] [id number] Common 13:30:00 13:30:00 t [facility] [address] [facility] Results Test Description Test Time Test Comments Results Result Comments Source COMP. METABOLIC PANEL (69392) 2022-04-15 01:18:36 Test Item Value Reference Range Interpretation Comme nts NA (test code = 0716661093) 138 mmol/L 135-145 K (test code = 2362892416) 4.5 mmol/L 3.5-5.0 CL (test code = 5443465099) 104 mmol/L 98-108 CO2 TOTAL (test code = 7919145182) 29 mmol/L 23-31 AGAP (test code = 8244109274) 5 2-16 BUN (test code = 3726091910) 13 mg/dL 7-23 GLUCOSE (test code = 0730320591) 101 mg/dL 70-110 CREATININE (test code = 0.58 mg/dL 0.50-1.04 1217645742) TOTAL BILI (test code = 0.6 mg/dL 0.1-1.0 5959634861) CALCIUM (test code = 0952793920) 9.0 mg/dL 8.6-10.6 T PROTEIN (test code = 0384681505) 7.3 g/dL 6.3-8.2 ALBUMIN (test code = 9840047669) 4.6 g/dL 3.5-5.0 ALK PHOS (test code = 1035359325) 127 U/L 34-122 H ALTv (test code = 1742-6) 29 U/L 5-35 AST(SGOT) (test code = 2425496384) 51 U/L 13-40 H eGFR (test code = 5630209097) 111.4 mL/min/1.73m2 CICI (test code = CICI) Association of Glomerular Filtration Rate (GFR) and Staging of Kidney Disease* + +-------- + ------+| GFR (mL/min/1.73 m2) ?| With Kidney Damage ?| ?Without Kidney Damage+ +-- + +| ?>90 ?| ?Stage one ?| ? Normal ?+ +------- + -------+| ?60-89 ?| ?Stage two ?| ? Decreased GFR ? + +-------- + ------+| ?30-59 ?| ?Stage three ?| ? Stage three ? + +-------- + ------+| ?15-29 ?| ?Stage four ? | ? Stage four ?+ +------- + -------+| ?<15 (or dialysis) ? ?| ?Stage five ? | ? Stage five ?+ +------- + -------+ *Each stage assumes the associated GFR level has been in effect for at least three months. ?Stages 1 to 5, with or without kidney disease, indicate chronic kidney disease. Notes: Determination of stages one and two (with eGFR >59mL/min/1.73 m2) requires estimation of kidney damage for at least three months as defined by structural or functional abnormalities of the kidney, manifested by either:Pathological abnormalities or Markers of kidney damage (including abnormalities in the composition of the blood or urine or abnormalities in imaging tests). Lab Interpretation (test code = Abnormal 10582-4) [facility] WITH [id number] 01:01:34 Test Item Value Reference Range Interpretation Comments WBC (test code = 8.13 See_Comment [Automated message] 1990-2) The system [employer] generated this result transmitted ref erence range: 4.30 - 1 1.10 10*3/?L. The re ference range was not u sed to interpret this result as normal/abnor mal. RBC (test code = 4.23 See_Comment [Automated message] 789-8) The system [employer] generated this result transmitted ref erence range: 3.93 - 5 .25 10*6/?L. The re ference range was not u sed to interpret this result as normal/abnor mal. HGB (test code = 13.1 g/dL 11.6-15.0 718-7) HCT (test code = 39.1 % 35.7-45.2 4544-3) MCV (test code = 92.4 fL 80.6-95.5 787-2) MCH (test code = 31.0 pg 25.9-32.8 785-6) MCHC (test code = 33.5 g/dL 31.6-35.1 786-4) RDW-SD (test code 43.7 fL 39.0-49.9 = 26052-7) RDW-CV (test code 13.0 % 12.0-15.5 = 788-0) PLT (test code = 269 See_Comment [Automated message] 777-3) The system [employer] generated this result transmitted ref erence range: 166 - 35 8 10*3/?L. The re ference range was not u sed to interpret this result as normal/abnor mal. MPV (test code = 9.8 fL 9.5-12.9 91772-5) NRBC/100 WBC (test 0.0 See_Comment [Automat ed message] code = 0335701925) The [employer] which generated this result transmitted ref erence range: 0.0 - 10 .0 /100 WBCs. The refer ence range was not u sed to interpret this result as normal/abnor mal. NRBC x10^3 (test See_Comment [Automated message] code = 4712232693) The syste m which generated this result transmitted ref erence range: 10*3/?L. The reference range was not used to interpr et this result as normal/abnormal . GRAN MAT (NEUT) % 65.8 % (test code = 770-8) IMM GRAN % (test 0.40 % code = 6019171362) LYMPH % (test code 27.3 % = 736-9) MONO % (test code 5.0 % = 5905-5) EOS % (test code = 1.0 % 713-8) BASO % (test code 0.5 % = 706-2) GRAN MAT 5.35 10*3/uL 1.88-7.09 x10^3(ANC) (test code = 1351230094) IMM GRAN x10^3 0.03 10*3/uL 0.00-0.06 (test code = 9212868480) LYMPH x10^3 (test 2.22 10*3/uL 1.32-3.29 code = 731-0) MONO x10^3 (test 0.41 10*3/uL 0.33-0.92 code = 742-7) EOS x10^3 (test 0.08 10*3/uL 0.03-0.39 code = 711-2) BASO x10^3 (test 0.04 10*3/uL 0.01-0.07 code = 704-7) [facility] [id number] 15:11:07 Test Item Value Reference Range Interpretation Comments NA (test code = 142 mmol/L 135-145 1037361900) K (test code = 3.5 mmol/L 3.5-5.0 3388081109) CL (test code = 102 mmol/L 98-108 5525283353) CO2 TOTAL (test code = 29 mmol/L 23-31 8778749634) AGAP (test code = 2-16 5074624850) BUN (test code = 13 mg/dL 7-23 1426387014) GLUCOSE (test code = 103 mg/dL 70-110 5819456083) CREATININE (test code = 0.58 mg/dL 0.50-1.04 1043785042) TOTAL BILI (test code = 1.1 mg/dL 0.1-1.3 6941041785) CALCIUM (test code = 9.7 mg/dL 8.6-10.6 3143879190) T PROTEIN (test code = 7.4 g/dL 6.3-8.2 9721333442) ALBUMIN (test code = 4.7 g/dL 3.5-5.0 4740149201) ALK PHOS (test code = 148 U/L 34-122 H 1338083879) ALTv (test code = 37 U/L 5-35 H 1742-6) AST(SGOT) (test code = 35 U/L 13-40 8616135720) eGFR (test code = mL/min/1.73m2 4065484227) CICI (test code = CICI) Association of Glomerular Filtration Rate (GFR) and Staging of Kidney Disease* + --+ --+ ------+| GFR (mL/min/1.73 m2) ?| With Kidney Damage ?| ?Without Kidney Damage+ --------+ --------+ +| ?>90 ?| ?Stage one ?| ? Normal ?+ ---+ ---+ -------+| ?60-89 ?| ?Stage two ?| ? Decreased GFR ? + --+ --+ ------+| ?30-59 ?| ?Stage three ?| ? Stage three ? + --+ --+ ------+| ?15-29 ?| ?Stage four ? | ? Stage four ?+ ---+ ---+ -------+| ?<15 (or dialysis) ? ?| ?Stage five ? | ? Stage five ?+ ---+ ---+ -------+ *Each stage assumes the associated GFR level has been in effect for at least three months. ?Stages 1 to 5, with or without kidney disease, indicate chronic kidney disease. Notes: Determination of stages one and two (with eGFR >59mL/min/1.73 m2) requires estimation of kidney damage for at least three months as defined by structural or functional abnormalities of the kidney, manifested by either:Pathological abnormalities or Markers of kidney damage (including abnormalities in the composition of the blood or urine or abnormalities in imaging tests). Lab Interpretation Abnormal (test code = 05982-6) [facility] [id number] 15:10:47 Test Item Value Reference Range Interpretation Comments LIPASE (test code = 5618434323) 441 U/L 0-220 H Lab Interpretation (test code = Abnormal 00997-0) [facility] with [id number] 14:57:06 Test Item Value Reference Range Interpretation Comments WBC (test code = See_Comment [Automated message] 6690-2) The system [employer] generated this result transmitted ref erence range: 4.30 - 1 1.10 10*3/?L. The re ference range was not u sed to interpret this result as normal/abnor mal. RBC (test code = See_Comment [Automated message] 789-8) The system [employer] generated this result transmitted ref erence range: 3.93 - 5 .25 10*6/?L. The re ference range was not u sed to interpret this result as normal/abnor mal. HGB (test code = 13.4 g/dL 11.6-15.0 718-7) HCT (test code = 38.8 % 35.7-45.2 4544-3) MCV (test code = 91.7 fL 80.6-95.5 787-2) MCH (test code = 31.7 pg 25.9-32.8 785-6) MCHC (test code = 34.5 g/dL 31.6-35.1 786-4) RDW-SD (test code 41.8 fL 39.0-49.9 = 67463-3) RDW-CV (test code 12.5 % 12.0-15.5 = 788-0) PLT (test code = See_Comment [Automated message] 777-3) The system [employer] generated this result transmitted ref erence range: 166 - 35 8 10*3/?L. The re ference range was not u sed to interpret this result as normal/abnor mal. MPV (test code = 10.0 fL 9.5-12.9 68260-3) NRBC/100 WBC (test See_Comment [Automat ed message] code = 0375551758) The syste [employer] which generated this result transmitted ref erence range: 0.0 - 10 .0 /100 WBCs. The refer ence range was not u sed to interpret this result as normal/abnor mal. NRBC x10^3 (test <0.01 See_Comment [Automated message] code = 4604627879) The syste m which generated this result transmitted ref erence range: 10*3/?L. The reference range was not used to interpr et this result as normal/abnormal . GRAN MAT (NEUT) % 54.1 % (test code = 770-8) IMM GRAN % (test 0.30 % code = 7072264857) LYMPH % (test code 35.9 % = 736-9) MONO % (test code 7.9 % = 5905-5) EOS % (test code = 1.4 % 713-8) BASO % (test code 0.4 % = 706-2) GRAN MAT 3.90 10*3/uL 1.88-7.09 x10^3(ANC) (test code = 8351449871) IMM GRAN x10^3 <0.03 0.00-0.06 (test code = 7983604548) LYMPH x10^3 (test 2.59 10*3/uL 1.32-3.29 code = 731-0) MONO x10^3 (test 0.57 10*3/uL 0.33-0.92 code = 742-7) EOS x10^3 (test 0.10 10*3/uL 0.03-0.39 code = 711-2) BASO x10^3 (test 0.03 10*3/uL 0.01-0.07 code = 704-7) [facility] [id number] 23:21:26 Test Item Value Reference Interpretation Comments Range TROPONIN I (test 0.002 ng/mL See_Comment [Automated code = 0952962470) message] The system which generated this result transmitted reference range : <=0.034. The reference range was not used to interpret this result as normal/abnormal . CICI (test code = Reference (Normal) CICI) Range (defined by the 99th percentile reference limit): <= 0.034 ng/mL Note: Cardiac troponin begins to rise 3-4 hours after the onset of ischemia. Repeat in 4-6 hours if the sample was drawn within 3-4 hours of the onset of the symptom and found normal. Diagnosis of myocardial injury is made with acute changes in cTn concentrations with at least one serial sample above the 99th percentile upper reference limit (URL), taken together with the patient's clinical presentation. Biotin has been reported to cause a negative bias, interpret results relative to patient's use of biotin. Lab Interpretation Normal (test code = 26432-8) [facility]. METABOLIC PANEL ([id number] 23:10:01 Test Item Value Reference Range Interpretation Comments NA (test code = 143 mmol/L 135-145 8976433078) K (test code = 4.2 mmol/L 3.5-5.0 1078093913) CL (test code = 108 mmol/L 98-108 6479217189) CO2 TOTAL (test code = 25 mmol/L 23-31 1189822190) AGAP (test code = 2-16 1870669205) BUN (test code = 11 mg/dL 7-23 8915613345) GLUCOSE (test code = 107 mg/dL 70-110 5840045063) CREATININE (test code = 0.60 mg/dL 0.50-1.04 8999595409) TOTAL BILI (test code = 0.9 mg/dL 0.1-1.6 5691549016) CALCIUM (test code = 9.8 mg/dL 8.6-10.6 0260236245) T PROTEIN (test code = 7.3 g/dL 6.3-8.2 8011217088) ALBUMIN (test code = 4.5 g/dL 3.5-5.0 1551230250) ALK PHOS (test code = 123 U/L 34-122 H 6961133761) ALTv (test code = 11 U/L 5-35 1742-6) AST(SGOT) (test code = 17 U/L 13-40 4956172469) eGFR (test code = mL/min/1.73m2 2314784778) CICI (test code = CICI) Association of Glomerular Filtration Rate (GFR) and Staging of Kidney Disease* + --+ --+ ------+| GFR (mL/min/1.73 m2) ?| With Kidney Damage ?| ?Without Kidney Damage+ --------+ --------+ +| ?>90 ?| ?Stage one ?| ? Normal ?+ ---+ ---+ -------+| ?60-89 ?| ?Stage two ?| ? Decreased GFR ? + --+ --+ ------+| ?30-59 ?| ?Stage three ?| ? Stage three ? + --+ --+ ------+| ?15-29 ?| ?Stage four ? | ? Stage four ?+ ---+ ---+ -------+| ?<15 (or dialysis) ? ?| ?Stage five ? | ? Stage five ?+ ---+ ---+ -------+ *Each stage assumes the associated GFR level has been in effect for at least three months. ?Stages 1 to 5, with or without kidney disease, indicate chronic kidney disease. Notes: Determination of stages one and two (with eGFR >59mL/min/1.73 m2) requires estimation of kidney damage for at least three months as defined by structural or functional abnormalities of the kidney, manifested by either:Pathological abnormalities or Markers of kidney damage (including abnormalities in the composition of the blood or urine or abnormalities in imaging tests). Lab Interpretation Abnormal (test code = 11186-6) [facility] WITH [id number] 22:46:16 Test Item Value Reference Range Interpretation Comments WBC (test code = See_Comment [Automated message] 6690-2) The system [employer] generated this result transmitted ref erence range: 4.30 - 1 1.10 10*3/?L. The re ference range was not u sed to interpret this result as normal/abnor mal. RBC (test code = See_Comment [Automated message] 789-8) The system [employer] generated this result transmitted ref erence range: 3.93 - 5 .25 10*6/?L. The re ference range was not u sed to interpret this result as normal/abnor mal. HGB (test code = 13.6 g/dL 11.6-15.0 718-7) HCT (test code = 40.2 % 35.7-45.2 4544-3) MCV (test code = 91.8 fL 80.6-95.5 787-2) MCH (test code = 31.1 pg 25.9-32.8 785-6) MCHC (test code = 33.8 g/dL 31.6-35.1 786-4) RDW-SD (test code 42.6 fL 39.0-49.9 = 41435-5) RDW-CV (test code 12.8 % 12.0-15.5 = 788-0) PLT (test code = See_Comment [Automated message] 777-3) The system whic h generated this result transmitted ref erence range: 166 - 35 8 10*3/?L. The re ference range was not u sed to interpret this result as normal/abnor mal. MPV (test code = 10.2 fL 9.5-12.9 93352-1) NRBC/100 WBC (test See_Comment [Automat ed message] code = 1277160597) The syste m which generated this result transmitted ref erence range: 0.0 - 10 .0 /100 WBCs. The refer ence range was not u sed to interpret this result as normal/abnor mal. NRBC x10^3 (test <0.01 See_Comment [Automated message] code = 3846481111) The syste m which generated this result transmitted ref erence range: 10*3/?L. The reference range was not used to interpr et this result as normal/abnormal . GRAN MAT (NEUT) % 69.9 % (test code = 770-8) IMM GRAN % (test 0.30 % code = 2672752838) LYMPH % (test code 23.5 % = 736-9) MONO % (test code 5.0 % = 5905-5) EOS % (test code = 0.9 % 713-8) BASO % (test code 0.4 % = 706-2) GRAN MAT 5.44 10*3/uL 1.88-7.09 x10^3(ANC) (test code = 6998461193) IMM GRAN x10^3 <0.03 0.00-0.06 (test code = 4241374395) LYMPH x10^3 (test 1.83 10*3/uL 1.32-3.29 code = 731-0) MONO x10^3 (test 0.39 10*3/uL 0.33-0.92 code = 742-7) EOS x10^3 (test 0.07 10*3/uL 0.03-0.39 code = 711-2) BASO x10^3 (test 0.03 10*3/uL 0.01-0.07 code = 704-7) [facility]. METABOLIC PANEL ([id number])2021-03-23 22:03:16 Test Item Value Reference Range Interpretation Comments NA (test code = 142 mmol/L 135-145 3531119288) K (test code = 3.9 mmol/L 3.5-5.0 6470768000) CL (test code = 104 mmol/L 98-108 2666149544) CO2 TOTAL (test code = 29 mmol/L 23-31 7616654154) AGAP (test code = 2-16 0025613258) BUN (test code = 10 mg/dL 7-23 8582692810) GLUCOSE (test code = 91 mg/dL 70-110 9428606270) CREATININE (test code = 0.56 mg/dL 0.50-1.04 4868984791) TOTAL BILI (test code = 0.8 mg/dL 0.1-1.9 5368232539) CALCIUM (test code = 9.2 mg/dL 8.6-10.6 3961729187) T PROTEIN (test code = 7.3 g/dL 6.3-8.2 1307896768) ALBUMIN (test code = 4.7 g/dL 3.5-5.0 2971024643) ALK PHOS (test code = 135 U/L 34-122 H 8644556533) ALTv (test code = 52 U/L 5-35 H 1742-6) AST(SGOT) (test code = 51 U/L 13-40 H 0801811844) eGFR (test code = mL/min/1.73m2 0846991586) CICI (test code = CICI) Association of Glomerular Filtration Rate (GFR) and Staging of Kidney Disease* + --+ --+ ------+| GFR (mL/min/1.73 m2) ?| With Kidney Damage ?| ?Without Kidney Damage+ --------+ --------+ +| ?>90 ?| ?Stage one ?| ? Normal ?+ ---+ ---+ -------+| ?60-89 ?| ?Stage two ?| ? Decreased GFR ? + --+ --+ ------+| ?30-59 ?| ?Stage three ?| ? Stage three ? + --+ --+ ------+| ?15-29 ?| ?Stage four ? | ? Stage four ?+ ---+ ---+ -------+| ?<15 (or dialysis) ? ?| ?Stage five ? | ? Stage five ?+ ---+ ---+ -------+ *Each stage assumes the associated GFR level has been in effect for at least three months. ?Stages 1 to 5, with or without kidney disease, indicate chronic kidney disease. Notes: Determination of stages one and two (with eGFR >59mL/min/1.73 m2) requires estimation of kidney damage for at least three months as defined by structural or functional abnormalities of the kidney, manifested by either:Pathological abnormalities or Markers of kidney damage (including abnormalities in the composition of the blood or urine or abnormalities in imaging tests). Lab Interpretation Abnormal (test code = 16408-4) [facility] WITH [id number] 21:49:31 Test Item Value Reference Range Interpretation Comments WBC (test code = See_Comment [Automated message] 4590-2) The system [employer] generated this result transmitted ref erence range: 4.30 - 1 1.10 10*3/?L. The re ference range was not u sed to interpret this result as normal/abnor mal. RBC (test code = See_Comment [Automated message] 459-8) The system [employer] generated this result transmitted ref erence range: 3.93 - 5 .25 10*6/?L. The re ference range was not u sed to interpret this result as normal/abnor mal. HGB (test code = 13.2 g/dL 11.6-15.0 718-7) HCT (test code = 39.9 % 35.7-45.2 4544-3) MCV (test code = 91.7 fL 80.6-95.5 787-2) MCH (test code = 30.3 pg 25.9-32.8 785-6) MCHC (test code = 33.1 g/dL 31.6-35.1 786-4) RDW-SD (test code 43.0 fL 39.0-49.9 = 55887-9) RDW-CV (test code 13.0 % 12.0-15.5 = 788-0) PLT (test code = See_Comment [Automated message] 460-3) The system whic h generated this result transmitted ref erence range: 166 - 35 8 10*3/?L. The re ference range was not u sed to interpret this result as normal/abnor mal. MPV (test code = 10.3 fL 9.5-12.9 38657-4) NRBC/100 WBC (test See_Comment [Automat ed message] code = 5071292774) The syste m which generated this result transmitted ref erence range: 0.0 - 10 .0 /100 WBCs. The refer ence range was not u sed to interpret this result as normal/abnor mal. NRBC x10^3 (test <0.01 See_Comment [Automated message] code = 8829318177) The syste m which generated this result transmitted ref erence range: 10*3/?L. The reference range was not used to interpr et this result as normal/abnormal . GRAN MAT (NEUT) % 58.6 % (test code = 770-8) IMM GRAN % (test 0.20 % code = 5481987424) LYMPH % (test code 31.2 % = 736-9) MONO % (test code 8.0 % = 5905-5) EOS % (test code = 1.6 % 713-8) BASO % (test code 0.4 % = 706-2) GRAN MAT 2.99 10*3/uL 1.88-7.09 x10^3(ANC) (test code = 5766781930) IMM GRAN x10^3 <0.03 0.00-0.06 (test code = 1411168130) LYMPH x10^3 (test 1.59 10*3/uL 1.32-3.29 code = 731-0) MONO x10^3 (test 0.41 10*3/uL 0.33-0.92 code = 742-7) EOS x10^3 (test 0.08 10*3/uL 0.03-0.39 code = 711-2) BASO x10^3 (test <0.03 0.01-0.07 code = 704-7) [facility]00 RUN DATE: 07/13/18 [facility] PAGE 1 RUN TIME: 1557 Specimen Inquiry RUN USER: INTERFACE PATIE NT: CHARMAINE SANCHES LOC: [place]ICIA U #: [id number] AGE/SX: 43/F ROOM: RE07/11/18REG DR: Laci Quiroz MD : 73 BED: DIS: STATUS: [facility] TLOC: SPEC #: [id number] RECD: 07/11/18 STATUS: [place] #: [id number] NISH: 07/11/18- SUBM DR: Laci Quiroz MD ENTERED: 07/11/18 SP [...] FOR MALIGNANCY MULTIPLE LEVELS EXAMINED RRB/keyur D [phone] 47421 MACROSCOPIC Specimen (1) is received in formalin, labeled with the patient's name, identified as "duodenum", and consists of pink biopsy tissue measuring 0.3 cm in aggregate, submitted as (1). Specimen (2) is received in formalin, labeled with the patient's name,identified as "pink-foy", and consists of foy biopsy tissue measuring 0.3 cm in CONTINUED ON NEXTPAGE RUN DATE: 07/13/18 [facility] PAGE 2 RUN TIME: 1557 Specimen Inquiry RUN USER: INTERFACE ------- -----SPEC #: [id number] PATIENT: CHARMAINE SANCHES #[id number] (Continued) MACROSCOPIC (Continued) aggregate, submitted as (2) for H E and giemsa stains. Specimen (3) is received in formalin, labeled with the patient's name,identified as "sigmoid polyp", and consists of pink-foy biopsy tissue measuring 0.25 cm in aggregate, submitted as (3). GROSS PERFORMED AT [facility] [address] [place] [address] (p)[phone] MICROSCOPIC All of the stains, including any controls performed, stain appropriately. MICROSCOPIC PERFORMED AT [facility] [address] [place] [address] (p)[phone] PERFORMING SITE Diagnosis performed at: [facility] [place] [address] [place] [address] Signed SIGNATURE ON FILE Fernando Marcial MD 07/13/18 1557 END OF REPORT BASIC METABOLIC [id number] 12:11:00 Test Item Value Reference Range Interpretation Comments SODIUM (test code = 142 mmol/L 136-145 N NA) POTASSIUM (test code 4.2 mmol/L 3.5-5.1 N = K) CHLORIDE (test code = 108.0 mmol/L 98-107 H CL) CARBON DIOXIDE (test 30.0 mmol/L 21-32 N code = CO2) ANION GAP (test code 8.2 10-20 L = GAP) GLUCOSE (test code = 106 mg/dL 74-106 N GLU) BLOOD UREA NITROGEN 12 mg/dL 7-18 N (test code = BUN) GLOMERULAR FILTRATION > 60 mL/min >=60 Estima leonie GFR by RATE (test code = using Blanca fied MDRD GFR) formula.Chronic kidney disease is defined as eith er kidney damageor GFR <60 mL/min/1.73 m2 for >3 months. CREATININE (test code 0.60 mg/dL 0.55-1.02 N Note change in = CREAT) reference range due to change in reagent. BUN/CREATININE RATIO 20.0 10-20 N (test code = BUN/CREA) CALCIUM (test code = 9.8 mg/dL 8.5-10.1 N CA) BASIC METABOLIC [id number] 12:08:00 Test Item Value Reference Range Interpretation Comments SODIUM (test code = NA) 142 mmol/L 136-145 N POTASSIUM (test code = K) 4.2 mmol/L 3.5-5.1 N CHLORIDE (test code = CL) 108.0 mmol/L 98-107 H CARBON DIOXIDE (test code = CO2) mmol/L 21-32 ANION GAP (test code = GAP) 10-20 GLUCOSE (test code = GLU) mg/dL 74-106 BLOOD UREA NITROGEN (test code = mg/dL 7-18 BUN) GLOMERULAR FILTRATION RATE (test mL/min >=60 code = GFR) CREATININE (test code = CREAT) mg/dL 0.55-1.02 BUN/CREATININE RATIO (test code 10-20 = BUN/CREA) CALCIUM (test code = CA) mg/dL 8.5-10.1 Notes Date/Time Note Provider Source 2018-07-11 12:37:00-00:00 [id number] [facility] PATIENT NAME: CHARMAINE SANCHES ADMIT DATE: ACCOUNT NO: [id number] ROOM NO: AGE: 43 REPORT TYPE: ENDOSCOPY REPORT SEX: F DATE OF : 73 ADMITTING PHYSICIAN: ATTENDING PHYSICIAN:Laci Quiroz MD Patient Name: Charmaine Sanches Attending MD: Laci Quiroz MD Procedure Date: 07/11/2018 12:37 PM 24 Date of : [birth year] Procedure: Colonoscopy Pre Procedure Diagnosis: Generalized abdominal p ain, Last colonoscopy: date unknown (unable to locate last colonoscopy repo rt) Assistants: Laci Quiroz MD Anesthesia: Propofol per Anesthesia Procedure: Pre-Anesthesia Assessment: - Prior to the procedure, a History and Physica l was performed, and patient medications and allergies were reviewed. The patient is compete nt. The risks and benefits of the procedure and the sedation options and risks were discussed with the patient. All questions were answered and inform ed consent was obtained. Patient identification an d proposed procedure were verified by the physici an in the pre-procedure area. Mental Status Examination: alert and oriented. Airway Examination: normal oropharyngeal airway and ne ck mobility. Respiratory Examination: clear to auscultation. CV Examination: normal. ASA Grade Assessment: II - A patient with mild systemic disease. After reviewing the risks and benefit s, the patient was deemed in satisfactory conditio n to undergo the procedure. The anesthesia plan was to use monitored anesthesia care (MAC). Immediatel y prior to administration of medications, the pat ient was re-assessed for adequacy to receive sedati ves. The heart rate, respiratory rate, oxygen saturations, blood pressure, adequacy of pulmon ruth ventilation, and response to care were monitore d throughout the procedure. The physical status o f the patient was re-assessed after the procedur e. The benefits, risks, and alternatives to the procedure were discussed and informed consent w as obtained from the patient. I've assesed the pat ient on this date and reviewed the medical history, drug history, and previous anesthesia experience. A fter PATIENT NAME: CHARMAINE SANCHES ACCOUNT #: [id number] obtaining informed consent, the scope was passe d under direct vision. Throughout the procedure, the patient's blood pressure, pulse, and oxygen saturations were monitored continuously. The Colonoscope was introduced through the anus and advanced to the cecum, identified by appendicea l orifice and ileocecal valve. The colonoscopy wa s performed without difficulty. The patient sandy ated the procedure well. The quality of the bowel preparation was good. Post Procedure Findings: A 5 mm polyp was found in the sigmoid colon. The polyp was sessile. The polyp was removed with a jumbo cold forceps. Resection and retrieval wer e complete. Verification of patient identificatio n for the specimen was done. Estimated blood loss was minimal. Non-bleeding external and internal hemorrhoids were found during retroflexion. The hemorrhoids were moderate and Grade II (internal hemorrhoids mannie t prolapse but reduce spontaneously). The terminal ileum appeared normal. Complications: No immediate complications. Estimated Blood Loss: Estimated blood loss: none . Post Procedure Diagnosis: - One 5 mm polyp in th e sigmoid colon, removed with a jumbo cold forceps. Resected and retrieved. - Non-bleeding external and internal hemorrhoid s. - The examined portion of the ileum was normal. Recommendation: - Discharge patient to home. - Resume regular diet. - Continue present medications. - Await pathology results. - Repeat colonoscopy in 5 years for surveillanc e. - Return to GI office in 4 weeks. Laci Quiroz MD 07/11/2018 1:01:32 PM This report has been signed electronically. Number of Addenda: 0 Note Initiated On: 07/11/2018 12:37 PM Procedure Code(s): --- Professional --- 94601, Colonoscopy, flexible; with biopsy, sin gle or multiple Diagnosis Code(s): --- Professional --- D12.5, Benign neoplasm of sigmoid colon K64.1, Second degree hemorrhoids R10.84, Generalized abdominal pain CPT copyright 2017 [employer]. All rights reserved. The codes documented in this report are prelimin ruth and upon speech therapy assistant review may be revised to meet current compliance requiremen ts. PATIENT NAME: CHARMAINE SANCHES ACCOUNT #: [id number] Scope In: Scope Out: Electronically Signed by Laci Quiroz MD on 0 07/11/18 at 1302 PATIENT NAME: CHARMAINE SANCHES ACCOUNT #: [id number] 2018-07-11 12:29:00-00:00 [id number] [facility] PATIENT NAME: CHARMAINE SANCHES ADMIT DATE: ACCOUNT NO: [id number] ROOM NO: AGE: 43 REPORT TYPE: ENDOSCOPY REPORT SEX: F DATE OF : 73 ADMITTING PHYSICIAN: ATTENDING PHYSICIAN:Laci Quiroz MD Patient Name: Charmaine Sanches Attending MD: Laci Quiroz MD Procedure Date: 07/11/2018 12:29 PM 24 Date of : [birth year] Procedure: Upper GI endoscopy Pre Procedure Diagnosis: Epigastric abdominal pa in, Functional Dyspepsia Assistants: Laci Quiroz MD Anesthesia: Monitored Anesthesia Care Procedure: Pre-Anesthesia Assessment: - Prior to the procedure, a History and Physica l was performed, and patient medications and allergies were reviewed. The patient is compete nt. The risks and benefits of the procedure and the sedation options and risks were discussed with the patient. All questions were answered and inform ed consent was obtained. Patient identification an d proposed procedure were verified by the physici an in the pre-procedure area. Mental Status Examination: alert and oriented. Airway Examination: normal oropharyngeal airway and ne ck mobility. Respiratory Examination: clear to auscultation. CV Examination: normal. ASA Grade Assessment: II - A patient with mild systemic disease. After reviewing the risks and benefits , the patient was deemed in satisfactory conditio n to undergo the procedure. The anesthesia plan was to use monitored anesthesia care (MAC). Immediatel y prior to administration of medications, the pat ient was re-assessed for adequacy to receive sedati ves. The heart rate, respiratory rate, oxygen saturations, blood pressure, adequacy of pulmon ruth ventilation, and response to care were monitore d throughout the procedure. The physical status o f the patient was re-assessed after the procedure . The benefits, risks, and alternatives to the procedure were discussed and informed consent w as obtained from the patient. I've assesed the pat ient on this date and reviewed the medical history, drug history, and previous anesthesia experience. A fter obtaining informed consent, the scope was passe d PATIENT NAME: CHARMAINE SANCHES ACCOUNT #: [id number] under direct vision. Throughout the procedure, the patient's blood pressure, pulse, and oxygen saturations were monitored continuously.s were monitored continuously. The Endoscope was introduced through the mouth, and advanced to t he second part of duodenum. The upper GI endoscopy was accomplished without difficulty. The patient tolerated the procedure well. Post Procedure Findings: The Z-line was regular and was found 38 cm from the incisors. Patchy moderate inflammation characterized by erosions, erythema and friability was found in the stomach. Biopsies were taken with a cold forcep s for histology. Verification of patient identification for the specimen was done. Estim ated blood loss was minimal. The duodenal bulb, first portion of the duodenu m and second portion of the duodenum were normal. Biopsies were taken with a cold forceps for Helicobacter pylori testing. Verification of patient identification for the specimen was don e. Estimated blood loss was minimal. Complications: No immediate complications. Estimated Blood Loss: Estimated blood loss: none . Post Procedure Diagnosis: - Z-line regular, 38 c m from the incisors. - Gastritis. Biopsied. - Normal duodenal bulb, first portion of the duodenum and second portion of the duodenum. Biopsied. Recommendation: - Proceed with colonscopy - Resume previous diet. - Continue present medications. - Await pathology results. PPI BID Laci Quiroz MD 07/11/2018 12:59:07 PM This report has been signed electronically. Number of Addenda: 0 Note Initiated On: 07/11/2018 12:29 PM Procedure Code(s): --- Professional --- 00161, Esophagogastroduodenoscopy, flexible, transoral; with biopsy, single or multiple Diagnosis Code(s): --- Professional --- K29.70, Gastritis, unspecified, without bleedin g R10.13, Epigastric pain K30, Functional dyspepsia CPT copyright 2017 [employer]. All rights reserved. The codes documented in this report are prelimin ruth and upon speech therapy assistant review may be revised to meet current compliance requiremen ts. PATIENT NAME: CHARMAINE SANCHES ACCOUNT #: [id number] Scope In: Scope Out: Electronically Signed by Laci Quiroz MD on 0 07/11/18 at 1259 PATIENT NAME: CHARMAINE SANCHES ACCOUNT #: [id number]
[2022-08-05] MEDS ORDERED: NA CHLORIDE 0.9% 1,000 ML ONE (18:18)
[2022-08-05] MEDS ORDERED: METOCLOPRAMIDE 10 MG/2mL INJ ONE (18:18)
[2022-08-05] MEDS ORDERED: DIPHENHYDRAMINE 50 MG/ML VIAL ONE (18:18)
[2022-08-05 18:30] LABS: Absolute Lymphocytes (CBC) 1.9 K/uL (0.7-4.9); Hematocrit 41.1 % (36.0-45.0); Lymphocytes % 33.9 % (15.3-44.8); MCV 92.7 fL (80-100); MPV 8.6 fL (7.6-11.3); RBC Red Blood Cell Count 4.44 M/uL (3.86-4.86)
[2022-08-05 18:32] LABS: BUN Blood Urea Nitrogen 11 mg/dL (7-18); Bicarbonate 30 mEq/L (21-32); Glomerular Filtration Rate 112 ml/min (=/>90); Glucose Level 104 mg/dL (74-106); Sodium Level 139 mEq/L (136-145)
[2022-08-05 18:33] LABS: Troponin High Sensitivity < 3.0 pg/mL (<58.9)
--- NOTE | 2022-08-05 19:04 | RAD REPORT ---
EXAM DESCRIPTION: CT - Head Brain Wo Cont - 08/05/2022 6:55 pm CLINICAL HISTORY: HEADACHE Headache, drowsiness COMPARISON: Head angio dated 08/05/2022; Ct Stroke Brain Wo Cont dated 04/15/2019 TECHNIQUE: All CT scans are performed using dose optimization technique as appropriate and may inclu de automated exposure control or mA/KV adjustment according to patient size. FINDINGS: No intracranial hemorrhage, hydrocephalus or extra-axial fluid collection.No areas of brai n edema or evidence of midline shift. The paranasal sinuses and mastoids are clear. The calvarium is intact. IMPRESSION: No acute intracranial abnormality.
--- NOTE | 2022-08-05 19:10 | RAD REPORT ---
EXAM DESCRIPTION: CT - Head angio - 08/05/2022 6:58 pm CLINICAL HISTORY: HEADACHE Headache, drowsiness COMPARISON: Ct Stroke Brain Wo Cont dated 04/15/2019; CT-STROKE BRAIN W/O CONTRAST dated 07/01/2012 TECHNIQUE: CT angiography of the head was performed with MIPs. All CT scans are performed using dose optimization technique as appropriate and may include automated exposure control or mA/KV adjustment according to patient size. FINDINGS: No evidence of large vessel occlusion. No evidence of aneurysm is detected. No flow-limiti ng stenosis or vascular malformation identified. Antegrade flow is seen in the vertebral arteries. The vertebral arteries are codominant. The visualized dural venous sinuses are patent. IMPRESSION: No significant flow abnormality is detected.
--- NOTE | 2022-08-05 19:13 | RAD REPORT ---
EXAM DESCRIPTION: CT - Neck Angio - 08/05/2022 6:58 pm CLINICAL HISTORY: HEADACHE Headache, drowsiness COMPARISON: No comparisons TECHNIQUE: CT angiography of the neck vessels was performed with MIPs. All CT scans are performed using dose optimization technique as appropriate and may include automated exposure control or mA/KV adjustment according to patient size. FINDINGS: A left aortic arch is identified with normal three vessel configuration of the great vesse ls. No significant flow abnormality is seen of the common carotid bilaterally. No significant stenosis is identified involving the cervical segments of both internal carotid arteri es. Normal flow is seen within both vertebral arteries. IMPRESSION: No significant flow abnormality of the neck vessels is identified. NASCET criteria used. Mild 0-49% stenosis Moderate 50-69% stenosis Severe 70-99% stenosis
[2022-08-05 19:20] LABS: Barbiturates NEGATIVE (NEGATIVE); Benzodiazepines NEGATIVE (NEGATIVE); Cocaine NEGATIVE (NEGATIVE); METHAMPHETAM NEGATIVE (NEGATIVE); Methadone NEGATIVE (NEGATIVE); Opiates POSITIVE (NEGATIVE); Phencyclidine NEGATIVE (NEGATIVE); THC Cannibis NEGATIVE (NEGATIVE)
[2022-08-05] MEDS ORDERED: LORazepam 2 MG/ML VIAL ONE (19:55)
--- NOTE | 2022-08-05 20:31 | ER ---
Nurse's Notes [facility] Name: Charmaine Sanches Age: 47 yrs Sex: Female : 1975 Arrival Date: 08/05/2022 Time: 17:40 Bed 15 Private MD: Diagnosis: Headache Presentation: 08/05 17:43 Chief complaint: Patient states: She woke up this morning with "a really bad headache" cm10 and "my daughter states that she was asking me what was wrong and she couldn't understand me". Pt reports left arm numbness and tingling. LKN: 0500. Coronavirus screen: Vaccine status: Patient reports being unvaccinated. Client denies travel out of the [place] in the last 14 days. At this time, the client does not indicate any symptoms associated with coronavirus-19. Ebola Screen: Patient denies travel to an Ebola-affected area in the 21 days before illness onset. No symptoms or risks identified at this time. Initial Sepsis Screen: Does the patient meet any 2 criteria? No. Patient's initial sepsis screen is negative. Does the patient have a suspected source of infection? No. Patient's initial sepsis screen is negative. Risk Assessment: Do you want to hurt yourself or someone else? Patient reports no desire to harm self or others. Onset of symptoms was August 05, 2022. 17:43 Method Of Arrival: Ambulatory cm10 17:43 Acuity: CLARA 3 cm10 Triage Assessment: 17:49 General: Appears in no apparent distress. comfortable, Behavior is calm, cooperative. cm10 Neuro: Level of Consciousness is awake, alert, Oriented to person, place, time, situation. Historical: - Allergies: 17:46 Bactrim; cm10 17:46 Cipro; cm10 17:46 Tramadol HCl; cm10 17:46 sulfamethoxazole; cm10 17:46 trimethoprim; cm10 17:46 Ketorolac; cm10 17:47 Decadron; cm10 - PMHx: 17:46 Anxiety; Back pain; CVA; Fibromyalgia; Migraines; PTSD; cm10 - Immunization history:: Adult Immunizations unknown. - Social history:: Smoking status: Reported history of juuling and/or vaping. Screenin:49 [facility] ED Fall Risk Assessment (Adult) History of falling in the last 3 months, ll3 including since admission No falls in past 3 months (0 pts) Confusion or Disorientation No (0 pts) Intoxicated or Sedated No (0 pts) Impaired Gait No (0 pts) Mobility Assist Device Used No (0 pt) Altered Elimination No (0 pt) Score/Fall Risk Level 0 - 2 = Low Risk Oriented to surroundings, Maintained a safe environment, Educated pt \\T\\ family on fall prevention, incl call for assistance when getting out of bed. Abuse screen: Denies threats or abuse. Denies injuries from another. Nutritional screening: No deficits noted. Tuberculosis screening: No symptoms or risk factors identified. Assessment: 19:03 Reassessment: See triage assessment. ld1 20:11 Reassessment: No changes from previously documented assessment. Patient and/or family ll3 updated on plan of care and expected duration. Pain level reassessed. Patient is alert, oriented x 3, equal unlabored respirations, skin warm/dry/pink. Vital Signs: 17:43 BP 99 / 61; Pulse 67; Resp 16; Temp 98.2(TE); Pulse Ox 100% ; Weight 52.16 kg; Height 5 cm10 ft. 1 in. ; Pain 8/10; 20:11 BP 133 / 85; Pulse 52; Resp 16; Pulse Ox 100% on R/A; ll3 17:43 Body Mass Index 21.73 (52.16 kg, 154.94 cm) cm10 17:43 Pain Scale: Adult cm10 NIH Stroke Scale Scores: 17:49 NIHSS Score: 0 [facility] ED Course: 17:42 Patient arrived in ED. nj1 17:43 Huy Moore PA is PHCP. [facility] 17:43 Wilbert Goldstein MD is Attending Physician. jmm 17:46 Triage completed. cm10 17:47 Arm band placed on Patient placed in an exam room, on a stretcher. cm10 18:05 Vikki Berger, BRITTNEY is Primary Nurse. ld1 18:31 UDS Sent. ld1 18:40 EKG done, by ED staff. aw1 18:57 CT Head Brain wo Cont In Process Unspecified. EDMS 18:59 CT Head Angio In Process Unspecified. EDMS 19:00 CT Neck Angio In Process Unspecified. EDMS 20:49 No provider procedures requiring assistance completed. IV discontinued, intact, ll3 bleeding controlled, No redness/swelling at site. Pressure dressing applied. 20:50 Patient has correct armband on for positive identification. Bed in low position. Call ll3 light in reach. Side rails up X 1. Adult w/ patient. Administered Medications: 18:31 Drug: metoCLOPramide IVP 20 mg Route: IVP; Site: right antecubital; ld1 20:49 Follow up: Response: No adverse reaction ll3 18:31 Drug: diphenhydrAMINE IVP 12.5 mg Route: IVP; Site: right antecubital; ld1 20:49 Follow up: Response: No adverse reaction ll3 18:31 Drug: NS 0.9% IV 1000 ml Route: IV; Rate: 1 bolus; Site: right antecubital; ld1 20:48 Follow up: Response: No adverse reaction; IV Status: Completed infusion; IV Intake: ll3 1000ml 19:52 Drug: Ativan IVP 0.5 mg Route: IVP; Site: right antecubital; ll3 20:48 Follow up: Response: No adverse reaction; Marked relief of symptoms ll3 Medication: 20:50 VIS not applicable for this client. ll3 Intake: 20:48 IV: 1000ml; Total: 1000ml. ll3 Outcome: 20:30 Discharge ordered by MD. [place] 20:49 Discharged to home ambulatory, with family. ll3 20:49 Condition: stable 20:49 Discharge instructions given to patient, Instructed on discharge instructions, follow up and referral plans. Demonstrated understanding of instructions, follow-up care. 20:51 Patient left the ED. ll3 NIH Stroke Scale - NIH Stroke Score Date: 08/05/2022 Time: 17:49 Total Score = 0 10. Dysarthria (speech clarity - read or repeat words) - 0(Normal) 11. Extinction and Inattention (visual/tactile/auditory/spatial/personal) - 0(No abnormality) 1a. Level of Consciousness (LOC) - 0(Alert) 1b. Level of Consciousness (LOC) (Month \\T\\ Age) - 0(Both) 1c. LOC Commands (Open \\T\\ Closes Eyes/Machine Engineer) - 0(Both) 2. Best Gaze (Lateral Gaze Paresis) - 0(Normal) 3. Visual Field Loss - 0(No visual loss) 4. Facial Palsy - 0(Normal) 5a. Left Arm: Motor (10-second hold) - 0(No drift) 5b. Right Arm: Motor (10-second hold) - 0(No drift) 6a. Left Leg: Motor (5-second hold - always test supine) - 0(No drift) 6b. Right Leg: Motor (5-second hold - always test supine) - 0(No drift) 7. Limb Ataxia (finger/nose \\T\\ heel/[place] - test with eyes open) - 0(Absent) 8. Sensory Loss (pinprick arms/legs/face) - 0(Normal) 9. Best Language: Aphasia (description/naming/reading) - 0(No aphasia) Initials: anisha Signatures: Dispatcher [employer] EDMS Huy Moore PA PA Vikki Mascorro, RN RN ld1 Gianna Mckeon, RN RN ll3 Alise Deras RN RN nj1 Lupe Chong RN RN cm10 Kalyani Thomas aw1
--- NOTE | 2022-08-05 20:31 | EDPHYS ---
Physician Documentation [facility] Name: Charmaine Sanches Age: 47 yrs Sex: Female : 1975 Arrival Date: 08/05/2022 Time: 17:40 Bed 15 Private MD: ED Physician Wilbert Goldstein HPI: 08/05 17:49 This 47 yrs old Female presents to ER via Ambulatory with complaints of jmm Headache. 17:49 The patient complains of pain to the forehead and left restoration. Onset: The jmm symptoms/episode began/occurred gradually, 1 day(s) ago. 17:49 Associated signs and symptoms: Pertinent positives: paresthesias. This is a 47 year old jmm female with a history of migraines, fibromyalgia, anxiety, that presents to the ED with complaints of headache consistent with previous migraines. Began yesterday. Patient also complains of tingling to her left hand and left upper arm. Daughter states she had difficulty speaking earlier today. Patient states she last felt normal yesterday. Had a similar episode in 2019 and diagnosed with a complex migraine. States she has had increased stress due to her husbands health issues. . Historical: - Allergies: 17:46 Bactrim; cm10 17:46 Cipro; cm10 17:46 Tramadol HCl; cm10 17:46 sulfamethoxazole; cm10 17:46 trimethoprim; cm10 17:46 Ketorolac; cm10 17:47 Decadron; cm10 - PMHx: 17:46 Anxiety; Back pain; CVA; Fibromyalgia; Migraines; PTSD; cm10 - Immunization history:: Adult Immunizations unknown. - Social history:: Smoking status: Reported history of juuling and/or vaping. ROS: 17:49 Constitutional: Negative for fever, chills, and weight loss, Cardiovascular: Negative jmm for chest pain, palpitations, and edema, Respiratory: Negative for shortness of breath, cough, wheezing, and pleuritic chest pain. 17:49 Neuro: Positive for headache, numbness. 17:49 All other systems are negative. Exam: 17:49 Constitutional: This is a well developed, well nourished patient who is awake, alert, jmm and in no acute distress. Head/Face: atraumatic. Eyes: EOMI, no conjunctival erythema appreciated ENT: Moist Mucus Membranes Neck: Trachea midline, Supple Chest/axilla: Normal chest wall appearance and motion. Cardiovascular: Regular rate and rhythm. No edema appreciated Respiratory: Normal respirations, no respiratory distress appreciated Abdomen/GI: Non distended Back: Normal ROM Skin: General appearance color normal MS/ Extremity: Moves all extremities, no obvious deformities appreciated, no edema noted to the lower extremities Neuro: Awake and alert Psych: Behavior is normal, Mood is normal, Patient is cooperative and pleasant Vital Signs: 17:43 BP 99 / 61; Pulse 67; Resp 16; Temp 98.2(TE); Pulse Ox 100% ; Weight 52.16 kg; Height 5 cm10 ft. 1 in. ; Pain 8/10; 20:11 BP 133 / 85; Pulse 52; Resp 16; Pulse Ox 100% on R/A; ll3 17:43 Body Mass Index 21.73 (52.16 kg, 154.94 cm) cm10 17:43 Pain Scale: Adult cm10 NIH Stroke Scale Scores: 17:49 NIHSS Score: 0 [facility] MDM: 17:49 Differential diagnosis: cerebral vascular accident, SAH, CVA, TIA, Migraine. Data [facility] reviewed: vital signs, nurses notes. 18:02 Patient medically screened. [facility] 20:00 Consideration of Admission/Observation Patient was admitted/placed on observation. [facility] Escalation of care including admission/observation considered. 20:00 Management of patient was discussed with the following: Dr. Baker, Dr. Goldstein. I mary considered the following discharge prescriptions or medication management in the emergency department Medications were administered in the Emergency Department. See MAR. Counseling: I had a detailed discussion with the patient and/or guardian regarding: the historical points, exam findings, and any diagnostic results supporting the discharge/admit diagnosis, lab results, radiology results, the need to transfer to another facility, [facility] does not immediately have the required specialist, No MRI. Refusal of service: The patient/guardian displays adequate decision making capability and despite a detailed discussion of alternatives, benefits, risks, and consequences refuses: Transfer for further evaluation. ED course: Patient states feeling much better. Headache resolved. The majority of the paresthesias in the left arm has resolved. Still complains of mild tingling to the left fingertips. I discussed transfer with the patient twice. Once with the patient's daughter. It was recommended that patient would need an MRI to rule out CVA due to paresthesias. Similar episode occurred in 2019, patient was diagnosed with complex migraine. Patient was given strict return precautions. . 08/05 17:49 Order name: Basic Metabolic Panel; Complete Time: 18:33 [facility] 08/05 17:49 Order name: CBC with Diff; Complete Time: 18:33 [facility] 08/05 17:49 Order name: Troponin HS; Complete Time: 18:33 [facility] 08/05 18:03 Order name: UDS; Complete Time: 19:25 [facility] 08/05 17:49 Order name: CT Head Brain wo Cont; Complete Time: 19:11 [facility] 08/05 17:59 Order name: CT Head Angio; Complete Time: 19:11 [facility] 08/05 17:59 Order name: CT Neck Angio; Complete Time: 19:14 [facility] 08/05 17:49 Order name: EKG; Complete Time: 17:50 [facility] 08/05 17:49 Order name: Cardiac monitoring; Complete Time: 18:05 [facility] 08/05 17:49 Order name: EKG - Nurse/Tech; Complete Time: 18:31 [facility] 08/05 17:49 Order name: IV Saline Lock; Complete Time: 18:05 [facility] 08/05 17:49 Order name: Labs collected and sent; Complete Time: 18:05 [facility] 08/05 17:49 Order name: O2 Per Protocol; Complete Time: 18:05 [facility] 08/05 17:49 Order name: O2 Sat Monitoring; Complete Time: 18:05 [facility] Administered Medications: 18:31 Drug: metoCLOPramide IVP 20 mg Route: IVP; Site: right antecubital; ld1 20:49 Follow up: Response: No adverse reaction ll3 18:31 Drug: diphenhydrAMINE IVP 12.5 mg Route: IVP; Site: right antecubital; ld1 20:49 Follow up: Response: No adverse reaction ll3 18:31 Drug: NS 0.9% IV 1000 ml Route: IV; Rate: 1 bolus; Site: right antecubital; ld1 20:48 Follow up: Response: No adverse reaction; IV Status: Completed infusion; IV Intake: ll3 1000ml 19:52 Drug: Ativan IVP 0.5 mg Route: IVP; Site: right antecubital; ll3 20:48 Follow up: Response: No adverse reaction; Marked relief of symptoms ll3 Disposition Summary: 08/05/22 20:30 Discharge Ordered Location: Home [facility] Condition: Stable [facility] Diagnosis - Headache [facility] Followup: anisha - With: Private Physician - When: 2 - 3 days - Reason: Recheck today's complaints, Continuance of care, Re-evaluation by your physician Discharge Instructions: - Discharge Summary Sheet [facility] - Migraine Headache [facility] Forms: - Medication Reconciliation Form [facility] - Thank You Letter [facility] - Antibiotic Education [facility] - Prescription Opioid Use [facility] NIH Stroke Scale - NIH Stroke Score Date: 08/05/2022 Time: 17:49 Total Score = 0 10. Dysarthria (speech clarity - read or repeat words) - 0(Normal) 11. Extinction and Inattention (visual/tactile/auditory/spatial/personal) - 0(No abnormality) 1a. Level of Consciousness (LOC) - 0(Alert) 1b. Level of Consciousness (LOC) (Month \T\ Age) - 0(Both) 1c. LOC Commands (Open \T\ Closes Eyes/Mental Health Nurse) - 0(Both) 2. Best Gaze (Lateral Gaze Paresis) - 0(Normal) 3. Visual Field Loss - 0(No visual loss) 4. Facial Palsy - 0(Normal) 5a. Left Arm: Motor (10-second hold) - 0(No drift) 5b. Right Arm: Motor (10-second hold) - 0(No drift) 6a. Left Leg: Motor (5-second hold - always test supine) - 0(No drift) 6b. Right Leg: Motor (5-second hold - always test supine) - 0(No drift) 7. Limb Ataxia (finger/nose \T\ heel/[place] - test with eyes open) - 0(Absent) 8. Sensory Loss (pinprick arms/legs/face) - 0(Normal) 9. Best Language: Aphasia (description/naming/reading) - 0(No aphasia) Initials: anisha Addendum: 08/08/2022 10:52 Co-signature as Attending Physician, Wilbert Goldstein MD I reviewed the patient's rn care provided by the Advanced Practice Provider and agree with the diagnosis and treatment plan. Signatures: Dispatcher [employer] EDHuy Koch PA PA jmm Nieto, Roman, MD MD rn Celine, Vikki RN RN ld1 Gianna Mckeon RN RN ll3 Lupe Chong RN RN cm10 Corrections: (The following items were deleted from the chart) 08/05 17:57 17:50 Brain Wo Cont+MRI.RAD.BRZ ordered. EDMS EDMS
[2022-08-05 20:56] VITALS: TEMP 98.2; O2SAT 100
[2022-08-05 20:58] VITALS: BP 133/85
--- NOTE | 2022-08-07 14:25 | EKG ---
Test Date: 2022-08-05 Test Time: 18:37:13 Plumber Cub: HANNA MEASUREMENT RESULTS: Intervals: Rate: 63 NE: 138 QRSD: 84 QT: 410 QTc: 419 [place]: P: 37 NE: 138 QRS: 62 T: 54 INTERPRETIVE STATEMENTS: Normal sinus rhythm Normal ECG Compared to ECG 04/15/2019 13:32:42 Sinus bradycardia no longer present Left ventricular hypertrophy no longer present T-wave abnormality no longer present Possible ischemia no longer present Electronically Signed On 08-07-22 14:22:17 CDT by Carlos Alberto Purdy
== END 2022-08-05 20:51 | disposition home or self-care (01) ==
LOC: ER 17:40
DX: R51.9 Headache, unspecified (principal)
CPT/HCPCS: 36415; 70450; 70496; 70498; 80048; 80307; 84484; 85025; 93005; 96361; 96374; 96375; 99284; J1200; J2765; J7030; Q9967

== ENCOUNTER → 2023-03-28 | Emergency (ER) | payer OTHER ==
[~2023-03-28] MED LIST: CYCLOBENZAPRINE 10 MG TAB ONE; HYDROCODONE/APAP 7.5/325 MG TAB ONE; predniSONE 20 MG TAB ONE
[2023-03-28 18:46] LABS: Specific Gravity 1.022 (1.005-1.030); Urine Bacteria None Seen /HPF (<20); Urine Bilirubin NEGATIVE (Negative); Urine Blood Negative (Negative); Urine Clarity Extremely Turbid (Clear); Urine Color Light-Orange (Yellow); Urine Crystals Unidentified Moderate /HPF (None Seen); Urine Glucose NEGATIVE (Negative); Urine Protein 1+ (Negative); Urine RBC >50 /HPF (None Seen); Urine Urobilinogen Normal (Normal); Urine WBC Clump Occasional /HPF (None Seen); Urine pH 8.5 (5.0-7.0)
--- NOTE | 2023-03-28 19:41 | RAD REPORT ---
EXAM DESCRIPTION: RAD - Thoracic Spine Ap/Lat - 03/28/2023 6:43 pm CLINICAL HISTORY: PAIN COMPARISON: No comparisons TECHNIQUE: Thoracic spine, 2 views. FINDINGS: Thoracic vertebral bodies are normal in height and alignment. There are no acute or destru ctive bony processes see. No paraspinal masses are identified. No disc space narrowing. IMPRESSION: Negative thoracic spine examination.
--- NOTE | 2023-03-28 19:57 | RAD REPORT ---
EXAM DESCRIPTION: RAD - Chest Pa And Lat (2 Views) - 03/28/2023 7:51 pm CLINICAL HISTORY: PAIN COMPARISON: Chest Single View dated 04/15/2019; Chest Pa And Lat (2 Views) dated 10/15/2015; CHEST PA AN D LAT 2 VIEW dated 05/07/2014; CHEST SINGLE VIEW dated 07/01/2012 TECHNIQUE: PA and lateral views of the chest were obtained. FINDINGS: The lungs are clear. Heart size is normal and central vasculature is within normal limits. No pleural effusion or pneumothorax seen. No acute bony finding noted. IMPRESSION: No acute cardiopulmonary process.
--- NOTE | 2023-03-28 20:46 | RAD REPORT ---
EXAM DESCRIPTION: CT - Stone Protocol - 03/28/2023 7:50 pm CLINICAL HISTORY: FLANK PAIN COMPARISON: Abdomen Pelvis W Contrast dated 10/15/2015 TECHNIQUE: Thin cut axial CT imaging of the abdomen and pelvis was performed without IV contrast. Mu ltiplanar reformats were generated and reviewed. All CT scans are performed using dose optimization technique as appropriate and may include automated exposure control or mA/KV adjustment according to patient size. FINDINGS: No suspicious findings in the lung bases. The liver, spleen, adrenal glands, and pancreas show no suspicious findings. Gallbladder was surgical ly removed. Symmetric renal contour, without suspicious parenchymal findings within limits of noncontrast techniq ue. No evidence of hydroureteronephrosis. Nonobstructing right mid to lower pole calculi largest chrissy uring 4 mm. No dilated bowel loops or bowel wall thickening. Mild colonic diverticulosis. No free air, free fluid or inflammatory stranding. No hernia, mass or bulky lymphadenopathy. The urinary bladder is without significant finding. No suspicious bony findings. IMPRESSION: Nonobstructing right renal calculi up to 4 mm in size. No hydroureteronephrosis. Mild colonic diverticulosis. Status post cholecystectomy.
--- NOTE | 2023-03-28 21:12 | EDPHYS ---
Physician Documentation [facility] Name: Charmaine Sanches Age: 47 yrs Sex: Female : 1975 Arrival Date: 03/28/2023 Time: 17:34 Bed 6 Private MD: ED Physician Elkin Baker HPI: 03/28 18:23 This 47 yrs old Female presents to ER via Ambulatory with complaints of Back kb Pain. 18:23 Patient is a 47-year-old female who presents for left upper back pain that radiates kb down to left lower back that started 1 week ago and has gotten worse. Denies any injury or trauma. Denies any numbness or tingling or other neurological symptoms. Denies fever, chest pain, shortness of breath. Historical: - Allergies: 17:43 Bactrim; mb9 17:43 Cipro; mb9 17:43 Decadron; mb9 17:43 Ketorolac; mb9 17:43 sulfamethoxazole; mb9 17:43 Tramadol HCl; mb9 17:43 TRIMETHOPRIM; mb9 - PMHx: 17:43 Anxiety; Back pain; CVA; Fibromyalgia; Migraines; PTSD; mb9 - Immunization history:: Adult Immunizations up to date. - Social history:: Smoking status: Patient denies any tobacco usage or history of. ROS: 18:20 Constitutional: Negative for fever, chills, and weight loss, kb 18:20 Back: Positive for pain with movement, of the left scapular area and thoracic area, 18:20 All other systems are negative, Exam: 18:20 Constitutional: This is a well developed, well nourished patient who is awake, alert, kb and in no acute distress. Head/Face: Normocephalic, atraumatic. ENT: Moist Mucous membranes Cardiovascular: Regular rate Respiratory: Respirations even and unlabored. No increased work of breathing. Talking in full sentences Skin: Warm, dry with normal turgor. Normal color. MS/ Extremity: Pulses equal, no cyanosis. Neurovascular intact. Full, normal range of motion. Neuro: Awake and alert, GCS 15, oriented to person, place, time, and situation. Moves all extremities. Normal gait. 18:20 Back: pain, that is moderate, of the left scapular area, left subscapular area and thoracic area, ROM is painful, CVA tenderness, is absent, vertebral tenderness, is appreciated at T3, T4, T5 and T6, 18:23 Neuro: Orientation: is normal, kb Vital Signs: 17:48 BP 165 / 97; Pulse 69; Resp 18; Temp 97.5; Pulse Ox 100% on R/A; Weight 54.43 kg; ph Height 5 ft. 1 in. ; 18:28 BP 120 / 80; Pulse 71; Resp 18; Pulse Ox 100% on R/A; mb9 19:13 BP 140 / 81; Pulse 60; Resp 18; Pulse Ox 100% ; vc1 20:30 BP 127 / 80; Pulse 61; Resp 18; Pulse Ox 100% ; vc1 17:48 Body Mass Index 22.67 (54.43 kg, 154.94 cm) ph MDM: 17:44 Patient medically screened. kb 18:22 Differential diagnosis: strain, fracture, abnormal ekg, uti. Data reviewed: vital kb signs, nurses notes. 21:11 Counseling: I had a detailed discussion with the patient and/or guardian regarding the kb historical points, exam findings, and any diagnostic results supporting the discharge/admit diagnosis, lab results, radiology results, the need for outpatient follow up, a family practitioner, to return to the emergency department if symptoms worsen or persist or if there are any questions or concerns that arise at home. 03/28 18:22 Order name: Urinalysis w/ reflexes; Complete Time: 18:47 kb 03/28 18:49 Order name: Urine Culture EDMS 03/28 17:48 Order name: XRAY Thoracic Spine (Ap/lat); Complete Time: 19:42 kb 03/28 17:48 Order name: Chest Pa And Lat (2 Views) XRAY; Complete Time: 19:57 kb 03/28 18:49 Order name: CT Stone Protocol; Complete Time: 20:49 kb 03/28 17:54 Order name: EKG - Nurse/Tech; Complete Time: 17:54 mb9 Administered Medications: 17:54 Drug: Hydrocodone-Acetaminophen PO (7.5 mg-325 mg) 1 tabs PO once Route: PO; mb9 18:15 Follow up: Response: No adverse reaction mb9 21:33 Drug: predniSONE PO 40 mg PO once Route: PO; vc1 21:33 Follow up: Response: Medication administered at discharge. vc1 21:33 Drug: Cyclobenzaprine PO 10 mg PO once Route: PO; vc1 21:34 Follow up: Response: Medication administered at discharge. vc1 Disposition Summary: 03/28/23 21:11 Discharge Ordered Notes: Location: Home Condition: Stable kb Diagnosis - Left upper back pain kb Followup: kb - With: Emergency Department - When: As needed - Reason: Worsening of condition Followup: kb - With: Private Physician - When: 2 - 3 days - Reason: Recheck today's complaints, Continuance of care, Re-evaluation by your physician Discharge Instructions: - Discharge Summary Sheet kb - Acute Back Pain, Adult kb Forms: - Medication Reconciliation Form kb - Thank You Letter kb - Antibiotic Education kb - Prescription Opioid Use kb - Patient Portal Instructions kb - Leadership Thank You Letter kb Prescriptions: - Prednisone 20 mg Oral Tablet - take 1 tablet ORAL route once daily for 5 days; 5 tablet; Refills: 0, Product kb Selection Permitted - orphenadrine citrate 100 mg Oral Tablet Sustained Release - take 1 tablet ORAL route 2 times per day As needed; 20 tablet; Refills: 0, kb Product Selection Permitted Signatures: Dispatcher [employer] Christa Gallegos, BUILDING APPRAISER-C BUILDING APPRAISER-Deanne Wallace RN RN vc1 Livier Hebert RN RN mb9
--- NOTE | 2023-03-28 21:12 | ER ---
Nurse's Notes [facility] Name: Charmaine Sanches Age: 47 yrs Sex: Female : 1975 Arrival Date: 03/28/2023 Time: 17:34 Bed 6 Private MD: Diagnosis: Left upper back pain Presentation: 03/28 17:48 Chief complaint: Patient states: Left mid back pain x 1 week, now radiating to lower ph back, denies recent injury. Coronavirus screen: Vaccine status: Patient reports being unvaccinated. Ebola Screen: No symptoms or risks identified at this time. Initial Sepsis Screen: Does the patient meet any 2 criteria? No. Patient's initial sepsis screen is negative. Does the patient have a suspected source of infection? No. Patient's initial sepsis screen is negative. Risk Assessment: Do you want to hurt yourself or someone else? Patient reports no desire to harm self or others. Onset of symptoms was March 28, 2023. 17:48 Method Of Arrival: Ambulatory ph 17:48 Acuity: CLARA 3 ph Historical: - Allergies: 17:43 Bactrim; mb9 17:43 Cipro; mb9 17:43 Decadron; mb9 17:43 Ketorolac; mb9 17:43 sulfamethoxazole; mb9 17:43 Tramadol HCl; mb9 17:43 TRIMETHOPRIM; mb9 - PMHx: 17:43 Anxiety; Back pain; CVA; Fibromyalgia; Migraines; PTSD; mb9 - Immunization history:: Adult Immunizations up to date. - Social history:: Smoking status: Patient denies any tobacco usage or history of. Screenin:45 [facility] ED Fall Risk Assessment (Adult) History of falling in the last 3 months, mb9 including since admission No falls in past 3 months (0 pts) Confusion or Disorientation No (0 pts) Intoxicated or Sedated No (0 pts) Impaired Gait No (0 pts) Mobility Assist Device Used No (0 pt) Altered Elimination No (0 pt) Score/Fall Risk Level 0 - 2 = Low Risk Oriented to surroundings, Maintained a safe environment, Educated pt \T\ family on fall prevention, incl call for assistance when getting out of bed. Abuse screen: Denies threats or abuse. Nutritional screening: No deficits noted. Tuberculosis screening: No symptoms or risk factors identified. Assessment: 17:54 General: Appears in no apparent distress. Behavior is calm, cooperative. Pain: mb9 Complains of pain in back Pain radiates to left flank Pain currently is 10 out of 10 on a pain scale. Quality of pain is described as throbbing, pulsating, Pain began 2-3 days ago. Neuro: Rhoades Agitation-Sedation Scale (RASS): 0 - Alert and Calm Level of Consciousness is awake, alert, obeys commands, Oriented to person, place, time, situation, Appropriate for age. Cardiovascular: Patient's skin is warm and dry. Respiratory: Airway is patent Respiratory effort is even, unlabored, Respiratory pattern is regular, symmetrical. GI: Abdomen is flat, non-distended, Bowel sounds present X 4 quads. Abd is soft and non tender X 4 quads. : No signs and/or symptoms were reported regarding the genitourinary system. EENT: No signs and/or symptoms were reported regarding the EENT system. Derm: Skin is pink, warm \T\ dry. Musculoskeletal: Range of motion: intact in all extremities. 19:13 Reassessment: Patient and/or family updated on plan of care and expected duration. Pain vc1 level reassessed. Patient is alert, oriented x 3, equal unlabored respirations, skin warm/dry/pink. Patient states feeling better. Patient states symptoms have improved. 21:05 Reassessment: No changes from previously documented assessment. Patient and/or family vc1 updated on plan of care and expected duration. Pain level reassessed. Patient is alert, oriented x 3, equal unlabored respirations, skin warm/dry/pink. Vital Signs: 17:48 BP 165 / 97; Pulse 69; Resp 18; Temp 97.5; Pulse Ox 100% on R/A; Weight 54.43 kg; ph Height 5 ft. 1 in. ; 18:28 BP 120 / 80; Pulse 71; Resp 18; Pulse Ox 100% on R/A; mb9 19:13 BP 140 / 81; Pulse 60; Resp 18; Pulse Ox 100% ; vc1 20:30 BP 127 / 80; Pulse 61; Resp 18; Pulse Ox 100% ; vc1 17:48 Body Mass Index 22.67 (54.43 kg, 154.94 cm) ph ED Course: 17:42 Patient arrived in ED. rg4 17:43 Livier Hebert RN is Primary Nurse. mb9 17:43 Arm band placed on. mb9 17:43 Placed in gown. Bed in low position. Call light in reach. Side rails up X 1. Client mb9 placed on continuous cardiac and pulse oximetry monitoring. NIBP monitoring applied. 17:44 [facility]C [facility]. kb 17:44 Elkin Baker MD is Attending Physician. kb 17:50 Triage completed. ph 17:54 EKG done, by ED staff, reviewed by Christa ALLISON. mb9 18:15 XRAY Thoracic Spine (Ap/lat) In Process Unspecified. EDMS 18:31 No provider procedures requiring assistance completed. mb9 18:31 Urinalysis w/ reflexes Sent. mb9 19:04 Report given to BRITTNEY Alicea. mb9 19:52 CT Stone Protocol In Process Unspecified. EDMS 19:53 Chest Pa And Lat (2 Views) XRAY In Process Unspecified. EDMS 21:34 Patient admitted, IV remains in place. vc1 Administered Medications: 17:54 Drug: Hydrocodone-Acetaminophen PO (7.5 mg-325 mg) 1 tabs PO once Route: PO; mb9 18:15 Follow up: Response: No adverse reaction mb9 21:33 Drug: predniSONE PO 40 mg PO once Route: PO; vc1 21:33 Follow up: Response: Medication administered at discharge. vc1 21:33 Drug: Cyclobenzaprine PO 10 mg PO once Route: PO; vc1 21:34 Follow up: Response: Medication administered at discharge. vc1 Medication: 17:45 VIS not applicable for this client. mb9 Outcome: 21:11 Discharge ordered by . kb 21:34 Discharged to home ambulatory, vc1 21:34 Condition: good 21:34 Discharge instructions given to patient, Instructed on discharge instructions, follow up and referral plans. medication usage, Demonstrated understanding of instructions, follow-up care, medications, Prescriptions given X 2, 21:35 Patient left the ED. vc1 Signatures: Dispatcher [employer] EDMS Christa Huitron FNP-C FNP-Ckb Hall, Patricia, RN RN ph Garcia, Rubi rg4 Deanne Rubin RN RN vc1 Livier Hebert, BRITTNEY LUGO mb9 Corrections: (The following items were deleted from the chart) 19:15 19:13 Reassessment: No changes from previously documented assessment. Patient and/or vc1 family updated on plan of care and expected duration. Pain level reassessed. Patient is alert, oriented x 3, equal unlabored respirations, skin warm/dry/pink. vc1
[2023-03-28 21:53] VITALS: TEMP 97.5; O2SAT 100
[2023-03-28 22:17] VITALS: BP 127/80
== END ==
LOC: ER 17:34
DX: M54.9 Dorsalgia, unspecified (principal); Z88.1 Allergy status to other antibiotic agents; Z88.2 Allergy status to sulfonamides; Z88.5 Allergy status to narcotic agent; Z88.8 Allergy status to other drugs, medicaments and biological substances
CPT/HCPCS: 87088; 81001; 87086; 76377; 74176; 71046; 72070; J7512; 93005